=== PATIENT | female | born 1935 | race Caucasian/White ===

== ENCOUNTER 2017-07-11 15:10 | Inpatient (IN) | payer MEDICARE ==
[~2017-07-11] VITALS: Ht 162.6 cm; Wt 80.3 kg
[~2017-07-11 15:10] MED LIST: CIME200T OR; DUONI; FLUO40CA PO; FURO20TA PO; LISI30TA44 PO; METF-324 PO; MEVA40TA PO; NOVO7030P2 SQ; PRED5TAB OR; TEMA30CA PO
[2017-07-11 15:11] VITALS: BP 128/60; PULSE 110; RESP 16; TEMP 98.2; O2SAT 98
--- NOTE | 2017-07-11 16:11 | RADRPT ---
EXAM DATE/TIME: 07/11/2017 15:58 [facility] COMPARISON: No previous studies available for comparison. INDICATIONS : Left foot pain and infection in toes. MEDICAL HISTORY : None. SURGICAL HISTORY : None. ENCOUNTER: Initial ACUITY: 1 month PAIN SCORE: 2/10 LOCATION: Left foot, 2nd and 3rd digits. FINDINGS: Extensive osteopenia and vascular calcifications are noted. There is in the distal tuft of the littl e toe. Extensive degenerative changes in the tarsals. Fracture is not appreciated. CONCLUSION: Extensive degenerative changes. Pal Cancino MD FACR on July 11, 2017 at 16:09 Board Certified Radiologist. This report was verified electronically.
--- NOTE | 2017-07-11 16:14 | RADRPT ---
EXAM DATE/TIME: 07/11/2017 15:52 [facility] COMPARISON: No previous studies available for comparison. INDICATIONS : Evaluate for pneumonia, pneumothorax, or communicable disease. Pre op left foot surgery. MEDICAL HISTORY : Chronic obstructive pulmonary disease. Congestive heart failure. SURGICAL HISTORY : CABG. ENCOUNTER: Initial ACUITY: 1 day PAIN SCORE: 0/10 LOCATION: Bilateral chest FINDINGS: The patient is post median sternotomy. The heart is normal in size. There is elevation of the right h emidiaphragm. The lungs are clear. There degenerative changes in the shoulders bilaterally. CONCLUSION: 1. No acute cardiopulmonary findings. 2. The patient is post median sternotomy. Jasper Cancino MD on July 11, 2017 at 16:12 Board Certified Radiologist. This report was verified electronically.
[2017-07-11] MEDS ORDERED: VANCOMYCIN INJ 1,000 MG in SODIUM CHLOR 0.9% 250 ML INJ 250 ML IV ONE (17:00)
[2017-07-11] MEDS ORDERED: CIPROFLOXACIN 400 MG PREMIX 200 ML IV ONE (17:00)
--- NOTE | 2017-07-11 17:04 | PD ---
HPI Chief Complaint: Medical Clearance Time Seen by Provider: 16:44 Travel History International Travel<30 days: No Contact w/Intl Traveler<30days: No Traveled to known affect area: No History of Present Illness HPI The patient is a 82-year-old female who presents to the emergency department from her screener perfumer's office for admission to the medical service with a consultation to Dr. Marie. According to the prescription given to the patient the screener perfumer, Dr. Roman, would like bilateral arterial Dopplers performed of the lower extremities secondary to osteomyelitis of the left foot. The patient does note she has an open lesion over the lateral aspect of the third left toe. The patient states initially they thought there was a corn over the affected toe, however, the area is now open and draining. The patient recently finished a prescription for COPD exacerbation that included doxycycline and prednisone. The patient is still taking prednisone, however, finish the antibiotic. The patient does have a history of diabetes and neuropathy, denies any known history of peripheral last color disease. She does note the lower extremities have neuropathy denies any significant pain from the affected toe, but does notice been draining. The patient's primary physician is Dr. Guidry. Symptoms are moderate, possibly exacerbated by history of diabetes, and there are no current alleviating factors. PFSH Past Medical History Arthritis: Yes Asthma: No Blood Disorders: No Anxiety: Yes Depression: Yes Heart Rhythm Problems: Yes Cancer: No Cardiovascular Problems: Yes (HTN,CABG X 5) High Cholesterol: Yes Congestive Heart Failure: Yes COPD: No Diabetes: Yes Endocrine: Yes Glaucoma: Yes Genitourinary: Yes Hepatitis: No Hiatal Hernia: No Hypertension: Yes Immune Disorder: No Musculoskeletal: Yes Neurologic: Yes Reproductive: No Respiratory: Yes (COPD) Thyroid Disease: Yes (NODULE REMOVED) Ulcer: Yes Past Surgical History Abdominal Surgery: Yes (CHOLECYSTECTOMY 80) AICD: No Cardiac Surgery: Yes (98 CORONARY BIPASS X5) Cholecystectomy: Yes Endocrine Surgery: Yes (RIGHT THYROID LOBECTOMY 2003) Eye Surgery: Yes (CATARACT SX BILATERAL) Gynecologic Surgery: Yes (HYSTERECTOMY 1977) Joint Replacement: No Pacemaker: No Social History Alcohol Use: No Tobacco Use: No Substance Use: No Allergies-Medications (Allergen,Severity, Reaction): Coded Allergies: aspirin (Unverified Allergy, Severe, GI UPSET, 07/11/17) oxycodone (Verified Allergy, Unknown, Hallucinations, 07/11/17) Reported Meds & Prescriptions Reported Meds & Active Scripts Active Reported Lisinopril 30 Mg Tab 30 Mg PO DAILY Resp: Albuterol/Ipratropium 2.5 Mg/0.5 Mg (Albuterol/Ipratropium) 1 Amp Nebu 1 Amp .XX BID Glucophage (Metformin HCl) 1,000 Mg Tab 1,000 Mg PO BID Furosemide 20 Mg Tab 20 Mg PO DAILY Prednisone 5 Mg Tab 5 Mg OR DAILY Fluoxetine Hcl (Fluoxetine HCl) 40 Mg Cap 40 Mg PO DAILY Cimetidine 200 Mg Tab 400 Mg OR DIRECTED Temazepam 30 Mg Cap 30 Mg PO HS Lovastatin 40 Mg Tab 40 Mg PO HS Novolin 70/30 (Insulin Human Isoph/Insulin Regular) 100 Units/Ml Inj 30 Units SQ DAILY Novolin 70/30 (Insulin Human Isoph/Insulin Regular) 100 Units/Ml Inj 20 Units SQ HS Review of Systems Except as stated in HPI: all other systems reviewed are Neg General / Constitutional: No: Fever Cardiovascular: No: Chest Pain or Discomfort Respiratory: No: Shortness of Breath Gastrointestinal: No: Nausea, Vomiting, Abdominal Pain Musculoskeletal: No: Pain Skin: Positive Other (as noted in the history of present illness) Neurologic: Positive: Sensory Disturbance (history of neuropathy) Physical Exam Narrative GENERAL: Awake, alert, pleasant 82-year-old female who appears her stated age and is in no acute respiratory distress. SKIN: Focused skin assessment warm/dry. HEAD: Atraumatic. Normocephalic. EYES: No scleral icterus. ENT: No nasal bleeding or discharge. Mucous membranes pink and moist. NECK: Trachea midline. No JVD. CARDIOVASCULAR: Regular, tachycardic with a heart rate of 102. RESPIRATORY: No accessory muscle use. Clear to auscultation. Breath sounds equal bilaterally. GASTROINTESTINAL: Abdomen soft, non-tender, nondistended. Hepatic and splenic margins not palpable. MUSCULOSKELETAL: Third digit of the left foot has an ulcer over the lateral aspect of the proximal phalanx and interphalangeal joint with clear drainage. Mild surrounding erythema. Positive Doppler dorsalis pedal pulses bilaterally. NEUROLOGICAL: Awake and alert. No obvious cranial nerve deficits. Motor grossly within normal limits. Normal speech. Diminished sensation to soft touch feet bilaterally. Oriented 3. PSYCHIATRIC: Appropriate mood and affect; insight and judgment normal. Data Data Last Documented VS Vital Signs Date Time Temp Pulse Resp B/P (MAP) Pulse Ox O2 Delivery O2 Flow Rate FiO2 07/11/17 17:22 07/11/17 17:22 95 16 100 Room Air 07/11/17 15:11 98.2 Orders Orders Electrocardiogram (07/11/17 15:23) Complete Blood Count With Diff (07/11/17 15:23) Comprehensive Metabolic Panel (07/11/17 15:23) Prothrombin Time / Inr (Pt) (07/11/17 15:23) Act Partial Throm Time (Ptt) (07/11/17 15:23) Urinalysis - C+S If Indicated (07/11/17 15:23) Blood Culture (07/11/17 15:23) Foot, Limited (2vws) (07/11/17 ) Chest, Single Ap (07/11/17 15:23) Lactic Acid (07/11/17 16:57) Ciprofloxacin 400 Mg Premix (Cipro 400 M (07/11/17 17:00) Vancomycin Inj (Vancomycin Inj) (07/11/17 17:00) Consult Podiatry (07/11/17 ) Admit Order (Ed Use Only) (07/11/17 17:50) Labs Laboratory Tests Test 07/11/17 16:20 White Blood Count 24.0 TH/MM3 Red Blood Count 4.49 MIL/MM3 Hemoglobin 12.5 GM/DL Hematocrit 37.2 % Mean Corpuscular Volume 83.0 FL Mean Corpuscular Hemoglobin 27.8 PG Mean Corpuscular Hemoglobin Concent 33.5 % Red Cell Distribution Width 14.6 % Platelet Count 436 TH/MM3 Mean Platelet Volume 8.9 FL Neutrophils (%) (Auto) 76.3 % Lymphocytes (%) (Auto) 15.5 % Monocytes (%) (Auto) 7.2 % Eosinophils (%) (Auto) 0.5 % Basophils (%) (Auto) 0.5 % Neutrophils # (Auto) 18.3 TH/MM3 Lymphocytes # (Auto) 3.7 TH/MM3 Monocytes # (Auto) 1.7 TH/MM3 Eosinophils # (Auto) 0.1 TH/MM3 Basophils # (Auto) 0.1 TH/MM3 CBC Comment AUTO DIFF Blood Urea Nitrogen 32 MG/DL Creatinine 1.44 MG/DL Random Glucose 185 MG/DL Total Protein 7.3 GM/DL Albumin 3.1 GM/DL Calcium Level 9.1 MG/DL Alkaline Phosphatase 87 U/L Aspartate Amino Transf (AST/SGOT) 16 U/L Alanine Aminotransferase (ALT/SGPT) 17 U/L Total Bilirubin 0.5 MG/DL Sodium Level 139 MEQ/L Potassium Level 4.4 MEQ/L Chloride Level 106 MEQ/L Carbon Dioxide Level 22.5 MEQ/L Anion Gap 11 MEQ/L Estimat Glomerular Filtration Rate 35 ML/MIN [facility] Medical Decision Making Medical Screen Exam Complete: Yes Emergency Medical Condition: Yes Medical Record Reviewed: Yes Interpretation(s) EKG reveals sinus rhythm with occasional supraventricular premature complex. Nonspecific T wave changes. Laboratory Tests Test 07/11/17 16:20 White Blood Count 24.0 TH/MM3 Red Blood Count 4.49 MIL/MM3 Hemoglobin 12.5 GM/DL Hematocrit 37.2 % Mean Corpuscular Volume 83.0 FL Mean Corpuscular Hemoglobin 27.8 PG Mean Corpuscular Hemoglobin Concent 33.5 % Red Cell Distribution Width 14.6 % Platelet Count 436 TH/MM3 Mean Platelet Volume 8.9 FL Neutrophils (%) (Auto) 76.3 % Lymphocytes (%) (Auto) 15.5 % Monocytes (%) (Auto) 7.2 % Eosinophils (%) (Auto) 0.5 % Basophils (%) (Auto) 0.5 % Neutrophils # (Auto) 18.3 TH/MM3 Lymphocytes # (Auto) 3.7 TH/MM3 Monocytes # (Auto) 1.7 TH/MM3 Eosinophils # (Auto) 0.1 TH/MM3 Basophils # (Auto) 0.1 TH/MM3 CBC Comment AUTO DIFF Blood Urea Nitrogen 32 MG/DL Creatinine 1.44 MG/DL Random Glucose 185 MG/DL Total Protein 7.3 GM/DL Albumin 3.1 GM/DL Calcium Level 9.1 MG/DL Alkaline Phosphatase 87 U/L Aspartate Amino Transf (AST/SGOT) 16 U/L Alanine Aminotransferase (ALT/SGPT) 17 U/L Total Bilirubin 0.5 MG/DL Sodium Level 139 MEQ/L Potassium Level 4.4 MEQ/L Chloride Level 106 MEQ/L Carbon Dioxide Level 22.5 MEQ/L Anion Gap 11 MEQ/L Estimat Glomerular Filtration Rate 35 ML/MIN Last Impressions Chest X-Ray 07/11/17 1523 Signed Impressions: Service Date/Time: Tuesday, July 11, 2017 15:52 - CONCLUSION: 1. No acute cardiopulmonary findings. 2. The patient is post median sternotomy. Jasper Cancino MD Foot X-Ray 07/11/17 0000 Signed Impressions: Service Date/Time: Tuesday, July 11, 2017 15:58 - CONCLUSION: Extensive degenerative changes. Pal Cancino MD FACR Differential Diagnosis Differential diagnosis includes osteomyelitis, diabetic foot ulcer, peripheral vascular disease, wet gangrene, dry gangrene, cellulitis, infected wound. Narrative Course IV was established, labs are drawn and sent, and the patient was placed on cardiac telemetry monitoring and continuous pulse oximetry monitoring. X-ray was performed read as degenerative arthritis. However, the patient does appear to have some bone erosion of the proximal phalanx of the third bone. The patient does have Doppler dorsalis pedal pulses bilateral, may have diabetic foot ulcer with secondary osteomyelitis. A call was placed to the patient's screener perfumer, Dr. Marie, at 5 PM. I discussed the patient with Dr. Marie, who states to place the patient on antibiotics. The patient can't eat, and the patient is going to surgery may be Tuesday afternoon or Tuesday. The patient' s white count is elevated at 24, however, the patient has been on prednisone for COPD. The patient was administered Cipro to cover for pseudomonas and vancomycin to cover for MRSA. I'll call was placed to [facility] for admission. Physician Communication Physician Communication The on-call [facility] physician was paged for admission. I discussed the patient with Dr. Tay who agrees with admission. Diagnosis Primary Impression: Osteomyelitis of toe of left foot Admitting Information Admitting Physician Requests: Admit Condition: Stable Hiram Esparza MD Jul 11, 2017 17:04
[2017-07-11 17:06] LABS: AUTOMATED NEUTROPHIL # 18.3 TH/MM3 (1.8-7.7); BASOPHIL # 0.1 TH/MM3 (0-0.2); BASOPHIL % 0.5 % (0.0-2.0); EOSINOPHIL # 0.1 TH/MM3 (0-0.4); EOSINOPHIL % 0.5 % (0.0-4.0); HEMATOCRIT 37.2 % (35.0-46.0); LYMPH % 15.5 % (9.0-44.0); LYMPHOCYTE # 3.7 TH/MM3 (1.0-4.8); MEAN CORPUSCULAR HEMOGLOBIN 27.8 PG (27.0-34.0); MEAN CORPUSCULAR HGB CONC 33.5 % (32.0-36.0); MONO % 7.2 % (0.0-8.0); NEUT % 76.3 % (16.0-70.0); PLATELET COUNT 436 TH/MM3 (150-450); RED BLOOD COUNT 4.49 MIL/MM3 (4.00-5.30); RED CELL DISTRIBUTION WIDTH 14.6 % (11.6-17.2)
[2017-07-11 17:08] LABS: ALT (GPT) 17 U/L (10-53); ANION GAP 11 MEQ/L (5-15); AST (GOT) 16 U/L (15-37); BICARBONATE 22.5 MEQ/L (21.0-32.0); BLOOD UREA NITROGEN 32 MG/DL (7-18); CHLORIDE 106 MEQ/L (98-107); GLOMERULAR FILTRATION RATE 35 ML/MIN (>89); POTASSIUM 4.4 MEQ/L (3.5-5.1); SODIUM (NA) 139 MEQ/L (136-145)
[2017-07-11 17:09] LABS: HEMO FLAGS AUTO DIFF
[2017-07-11 17:10] LABS: ALKALINE PHOSPHATASE 87 U/L (45-117); TOTAL BILIRUBIN ADULT 0.5 MG/DL (0.2-1.0)
[2017-07-11 17:22] VITALS: BP 133/62; PULSE 95; RESP 16; O2SAT 100
[2017-07-11 18:18] LABS: PLATELET ESTIMATE SMEAR NORMAL (NORMAL); PLATELET MORPHOLOGY CLUMPED (NORMAL); SCAN/DIFF AUTO DIFF CONFIRMED
[2017-07-11 18:35] LABS: BLOOD, URINE NEG (NEG); GLUCOSE,URINE TRACE mg/dL (NEG); KETONE, URINE NEG (NEG); NITRITE,URINE NEG (NEG); SQUAMOUS EPITHELIAL CELL URINE <1 /hpf (0-5); URINE COLOR YELLOW (YELLW/STRAW)
[2017-07-11 18:38] LABS: COMMENT (UR) CATH-CULTURE IND; CULTURE IF INDICATED CATH CULTURE IND
[2017-07-11 18:44] VITALS: BP 129/71; PULSE 95; RESP 18; O2SAT 100
[2017-07-11] MEDS ORDERED: SENNOSIDES 8.6 MG TAB PO PRN (18:45)
[2017-07-11] MEDS ORDERED: SODIUM CHLORIDE 0.9% FLUSH 10 ML FLUSH IV FLUSH PRN (18:45)
[2017-07-11] MEDS ORDERED: Vancomycin Consult Pharmacy 1 EA OTHER SCH (18:45)
[2017-07-11] MEDS ORDERED: MAGNESIUM HYDROXIDE SUSP 30 ML CUP PO PRN (18:45)
[2017-07-11] MEDS ORDERED: LACTULOSE SYRUP 20 GM/30 ML CUP PO PRN (18:45)
[2017-07-11] MEDS ORDERED: MORPHINE SULFATE 4 MG/ML INJ IV PUSH PRN (18:45)
[2017-07-11] MEDS ORDERED: ONDANSETRON HCL 4 MG/2 ML VIAL IVP PRN (18:45)
[2017-07-11] MEDS ORDERED: BISACODYL 10 MG SUPP RECTAL PRN (18:45)
[2017-07-11] MEDS ORDERED: NALOXONE HCL 0.4 MG/ML AMP IV PUSH PRN (18:45)
--- NOTE | 2017-07-11 19:01 | HHI.HP ---
HPI Service [facility] Hospitalists Primary Care Physician Carlo Guidry M.D. Admission Diagnosis osteomyelitis third toe left foot, diabetes Chief Complaint: sent by podiatry for probable osteomyelitis third toe left foot Travel History International Travel<30 Days: No Contact w/Intl Traveler <30 Da: No Traveled to Known Affected Are: No History of Present Illness The patient is a 82-year-old female who presents to the emergency department from her watch crystal cutter's office for admission to the medical service with a consultation to Dr. Marie. According to the prescription given to the patient the watch crystal cutter, Dr. Roman, would like bilateral arterial Dopplers performed of the lower extremities secondary to osteomyelitis of the left foot. The patient does note she has an open lesion over the lateral aspect of the third left toe. The patient states initially they thought there was a corn over the affected toe, however, the area is now open and draining. The patient recently finished a prescription for COPD exacerbation that included doxycycline and prednisone. The patient is still taking prednisone, however, finish the antibiotic. The patient does have a history of diabetes and neuropathy, denies any known history of peripheral last color disease. She does note the lower extremities have neuropathy denies any significant pain from the affected toe, but does notice been draining. The patient's primary physician is Dr. Guidry. Symptoms are moderate, possibly exacerbated by history of diabetes, and there are no current alleviating factors. Admit with IV antibiotics and consult to podiatry with surgery to be planned. Review of Systems Musculoskeletal: COMPLAINS OF: Joint pain Past Family Social History Past Medical History djd,anxiety depression,hypertension,CABG times 5,hyperlipidemia,chf,dm,glucoma, COPD Past Surgical History gallbladder CABGtimes 5,rt thyroid lobectomy 2003,cataracts,hysterectomy Reported Medications Lisinopril 30 Mg Tab 30 Mg PO DAILY Resp: Albuterol/Ipratropium 2.5 Mg/0.5 Mg (Albuterol/Ipratropium) 1 Amp Nebu 1 Amp .XX BID Glucophage (Metformin HCl) 1,000 Mg Tab 1,000 Mg PO BID Furosemide 20 Mg Tab 20 Mg PO DAILY Prednisone 5 Mg Tab 5 Mg OR DAILY Fluoxetine Hcl (Fluoxetine HCl) 40 Mg Cap 40 Mg PO DAILY Cimetidine 200 Mg Tab 400 Mg OR DIRECTED Temazepam 30 Mg Cap 30 Mg PO HS Lovastatin 40 Mg Tab 40 Mg PO HS Novolin 70/30 (Insulin Human Isoph/Insulin Regular) 100 Units/Ml Inj 30 Units SQ DAILY Novolin 70/30 (Insulin Human Isoph/Insulin Regular) 100 Units/Ml Inj 20 Units SQ HS Allergies: Coded Allergies: aspirin (Unverified Allergy, Severe, GI UPSET, 07/11/17) oxycodone (Verified Allergy, Unknown, Hallucinations, 07/11/17) Social History NS,ND Physical Exam Vital Signs Vital Signs Date Time Temp Pulse Resp B/P (MAP) Pulse Ox O2 Delivery O2 Flow Rate FiO2 07/11/17 18:44 95 18 129/71 (90) 100 Room Air 07/11/17 17:22 07/11/17 17:22 95 16 133/62 (85) 100 Room Air 07/11/17 15:11 98.2 110 16 128/60 (82) 98 Physical Exam GENERAL: This is a well-nourished, well-developed patient, in no apparent distress. SKIN: No rashes, ecchymoses or lesions. Cool and dry. HEAD: Atraumatic. Normocephalic. No temporal or scalp tenderness. EYES: Pupils equal round and reactive. Extraocular motions intact. No scleral icterus. No injection or drainage. ENT: Nose without bleeding, purulent drainage or septal hematoma. Throat without erythema, tonsillar hypertrophy or exudate. Uvula midline. Airway patent. NECK: Trachea midline. No JVD or lymphadenopathy. Supple, nontender, no meningeal signs. CARDIOVASCULAR: Regular rate and rhythm without murmurs, gallops, or rubs. RESPIRATORY: Clear to auscultation. Breath sounds equal bilaterally. No wheezes , rales, or rhonchi. GASTROINTESTINAL: Abdomen soft, non-tender, nondistended. No hepato-splenomegaly , or palpable masses. No guarding. MUSCULOSKELETAL: Extremities without clubbing, cyanosis, or edema. No joint tenderness, effusion, or edema noted. No calf tenderness. Negative Homans sign bilaterally. 3rd digit left foot ulcer lateral aspect of proximal phalanx and interphalangeal joint with clear drainage mils surrounding edema doppler positive pulses NEUROLOGICAL: Awake and alert. Cranial nerves II through XII intact. Motor and sensory grossly within normal limits. Five out of 5 muscle strength in all muscle groups. Normal speech. Laboratory Laboratory Tests Test 07/11/17 16:20 07/11/17 18:00 White Blood Count 24.0 Red Blood Count 4.49 Hemoglobin 12.5 Hematocrit 37.2 Mean Corpuscular Volume 83.0 Mean Corpuscular Hemoglobin 27.8 Mean Corpuscular Hemoglobin Concent 33.5 Red Cell Distribution Width 14.6 Platelet Count 436 Mean Platelet Volume 8.9 Neutrophils (%) (Auto) 76.3 Lymphocytes (%) (Auto) 15.5 Monocytes (%) (Auto) 7.2 Eosinophils (%) (Auto) 0.5 Basophils (%) (Auto) 0.5 Neutrophils # (Auto) 18.3 Lymphocytes # (Auto) 3.7 Monocytes # (Auto) 1.7 Eosinophils # (Auto) 0.1 Basophils # (Auto) 0.1 CBC Comment AUTO DIFF Differential Comment AUTO DIFF CONFIRMED Platelet Estimate NORMAL Platelet Morphology Comment CLUMPED Blood Urea Nitrogen 32 Creatinine 1.44 Random Glucose 185 Total Protein 7.3 Albumin 3.1 Calcium Level 9.1 Alkaline Phosphatase 87 Aspartate Amino Transf (AST/SGOT) 16 Alanine Aminotransferase (ALT/SGPT) 17 Total Bilirubin 0.5 Sodium Level 139 Potassium Level 4.4 Chloride Level 106 Carbon Dioxide Level 22.5 Anion Gap 11 Estimat Glomerular Filtration Rate 35 Urine Color YELLOW Urine Turbidity CLEAR Urine pH 5.0 Urine Specific [place] 1.017 Urine Protein TRACE Urine Glucose (UA) TRACE Urine Ketones NEG Urine Occult Blood NEG Urine Nitrite NEG Urine Bilirubin NEG Urine Urobilinogen LESS THAN 2.0 Urine Leukocyte Esterase SMALL Urine RBC 1 Urine WBC 7 Urine Squamous Epithelial Cells <1 Urine Amorphous Sediment RARE Microscopic Urinalysis Comment CATH-CULTURE IND Lactic Acid Level 2.1 Date/Time Source Procedure Growth Status 07/11/17 16:20 Blood Peripheral Aerobic Blood Culture Pending Received 07/11/17 16:20 Blood Peripheral Anaerobic Blood Culture Pending Received 07/11/17 18:00 Urine Catheterized Urine Urine Culture Pending Received Result Diagram: 07/11/17 1620 07/11/17 1620 Imaging Last 24 hours Impressions Chest X-Ray 07/11/17 1523 Signed Impressions: Service Date/Time: Tuesday, July 11, 2017 15:52 - CONCLUSION: 1. No acute cardiopulmonary findings. 2. The patient is post median sternotomy. Jasper Cancino MD Foot X-Ray 07/11/17 0000 Signed Impressions: Service Date/Time: Tuesday, July 11, 2017 15:58 - CONCLUSION: Extensive degenerative changes. Pal Cancino MD FACR Course ekg sinus with spraventricular beats and non specific st t wave changes,patient started on cipro IV and Vancomycin by er Caprinfreeman VTE Risk Assessment Caprini VTE Risk Assessment: Mod/High Risk (score >= 2) Caprini Risk Assessment Model Point Value = 1 Point Value = 2 Point Value = 3 Point Value = 5 Age 41-60 Minor surgery BMI > 25 kg/m2 Swollen legs Varicose veins or History of unexplained or recurrent spontaneous Oral contraceptives or hormone replacement Sepsis (< 1 month) Serious lung disease, including pneumonia (< 1 month) Abnormal pulmonary function Acute myocardial infarction Congestive heart failure (< 1 month) History of inflammatory bowel disease Medical patient at bed rest Age 61-74 Arthroscopic surgery Major open surgery (> 45 min) Laparoscopic surgery (> 45 min) Malignancy Confined to bed (> 72 hours) Immobilizing plaster cast Central venous access Age >= 75 History of VTE Family history of VTE Factor V Leiden Prothrombin 24030N Lupus anticoagulant Anticardiolipin antibodies Elevated serum homocysteine Heparin-induced thrombocytopenia Other congenital or acquired thrombophilia Stroke (< 1 month) Elective arthroplasty Hip, pelvis, or leg fracture Acute spinal cord injury (< 1 month) Prophylaxis Regimen Total Risk Factor Score Risk Level Prophylaxis Regimen 0-1 Low Early ambulation 2 Moderate Order ONE of the following: *Sequential Compression Device (SCD) *Heparin 5000 units SQ BID 3-4 Higher Order ONE of the following medications: *Heparin 5000 units SQ TID *Enoxaparin/Lovenox 40 mg SQ daily (WT < 150 kg, CrCl > 30 mL/min) *Enoxaparin/Lovenox 30 mg SQ daily (WT < 150 kg, CrCl > 10-29 mL/min) *Enoxaparin/Lovenox 30 mg SQ BID (WT < 150 kg, CrCl > 30 mL/min) AND/OR *Sequential Compression Device (SCD) 5 or more Highest Order ONE of the following medications: *Heparin 5000 units SQ TID (Preferred with Epidurals) *Enoxaparin/Lovenox 40 mg SQ daily (WT < 150 kg, CrCl > 30 mL/min) *Enoxaparin/Lovenox 30 mg SQ daily (WT < 150 kg, CrCl > 10-29 mL/min) *Enoxaparin/Lovenox 30 mg SQ BID (WT < 150 kg, CrCl > 30 mL/min) AND *Sequential Compression Device (SCD) Assessment and Plan Problem List: (1) Osteomyelitis of toe of left foot ICD Codes: M86.9 - Osteomyelitis, unspecified Status: Acute Plan: consult podiatry and continue Vancomycin and cipro and follow labs (2) Diabetes ICD Codes: E11.9 - Type 2 diabetes mellitus without complications Plan: continue home meds add sliding scale with coverage (3) Hypertension associated with stage 3 chronic kidney disease due to type 2 diabetes mellitus ICD Codes: E11.22 - Type 2 diabetes mellitus with diabetic chronic kidney disease; I12.9 - Hypertensive chronic kidney disease with stage 1 through stage 4 chronic kidney disease, or unspecified chronic kidney disease; N18.3 - Chronic kidney disease, stage 3 (moderate) Plan: continue home meds and follow labs Assessment and Plan further plan as case develops continue copd treatment Code Status full Discussed Condition With patient Physician Certification 2 Midnight Certification Type: Admission for Inpatient Services Order for Inpatient Services The services are ordered in accordance with Medicare regulations or non- Medicare payer requirements, as applicable. In the case of services not specified as inpatient-only, they are appropriately provided as inpatient services in accordance with the 2-midnight benchmark. Estimated LOS (days): 3 3 days is the estimated time the patient will need to remain in the hospital, assuming treatment plan goals are met and no additional complications. Post-Hospital Plan: Not yet determined Eron Tay MD Jul 11, 2017 19:01
[2017-07-11 19:47] LABS: APTT (PATIENT) 24.4 SEC (24.3-30.1); PROTHROMBIN TIME - PATIENT 10.8 SEC (9.8-11.6)
[2017-07-11 20:00] VITALS: BP 127/61; PULSE 88; RESP 18; TEMP 98.2; O2SAT 98
[2017-07-11] MEDS: DOCUSATE SODIUM 50 MG/SENNA 8.6 MG TAB PO SCH (21:00)
[2017-07-11] MEDS: INSULIN ASPART SUPPLEMENTAL SCALE SQ SCH (21:00)
[2017-07-11] MEDS: SODIUM CHLORIDE 0.9% FLUSH 10 ML FLUSH IV FLUSH SCH (21:00)
[2017-07-11] MEDS ORDERED: GLUCAGON 1 MG/ML VIAL OTHER PRN (21:45)
[2017-07-11] MEDS ORDERED: DEXTROSE 50% IN WATER 50 ML VIAL(D50) IV PUSH PRN (21:45)
[2017-07-11] MEDS: RESP: ALBUTEROL 2.5 MG/IPRATROPIUM 0.5 MG NEB (SCH) NEB (22:04)
[2017-07-11 22:08] VITALS: O2SAT 97
[2017-07-11 23:00] VITALS: BP 122/58; PULSE 106; RESP 18; TEMP 98.3; O2SAT 96
[2017-07-11] MEDS: ENOXAPARIN SODIUM 30 MG/0.3 ML SYRINGE SQ SCH (23:43)
[2017-07-11] MEDS: PRAVASTATIN SOD 40 MG TAB PO SCH (23:44)
[2017-07-11] MEDS: TEMAZEPAM 15 MG CAP PO SCH (23:44)
[2017-07-11] MEDS: INSULIN HUMAN NPH/R 70/30 1,000 UNITS/10 ML VIAL SQ SCH (23:45)
[2017-07-12] VITALS (11 sets, daily range): BP systolic 111–131; BP diastolic 52–60; PULSE 63–100; RESP 18–20; TEMP 97.4–98.5; O2SAT 97–100
[2017-07-12] MEDS: CIPROFLOXACIN 400 MG PREMIX 200 ML IV SCH ×2 (06:03→17:22)
[2017-07-12] MEDS: RESP: ALBUTEROL 2.5 MG/IPRATROPIUM 0.5 MG NEB (SCH) NEB ×2 (07:31→19:36)
[2017-07-12] MEDS: INSULIN ASPART SUPPLEMENTAL SCALE SQ SCH ×4 (08:00→22:43)
[2017-07-12 08:03] LABS: AUTOMATED NEUTROPHIL # 11.4 TH/MM3 (1.8-7.7); BASOPHIL # 0.1 TH/MM3 (0-0.2); BASOPHIL % 0.6 % (0.0-2.0); EOSINOPHIL # 0.1 TH/MM3 (0-0.4); HEMATOCRIT 36.2 % (35.0-46.0); HEMO FLAGS DIFF FINAL; LYMPH % 8.8 % (9.0-44.0); LYMPHOCYTE # 1.2 TH/MM3 (1.0-4.8); MEAN CELL VOLUME 82.9 FL (80.0-100.0); MEAN CORPUSCULAR HEMOGLOBIN 27.7 PG (27.0-34.0); MEAN CORPUSCULAR HGB CONC 33.4 % (32.0-36.0); MONO % 9.6 % (0.0-8.0); PLATELET COUNT 344 TH/MM3 (150-450); RED BLOOD COUNT 4.36 MIL/MM3 (4.00-5.30); RED CELL DISTRIBUTION WIDTH 14.8 % (11.6-17.2); WHITE BLOOD COUNT 14.2 TH/MM3 (4.0-11.0)
[2017-07-12] MEDS: LISINOPRIL 10 MG TAB PO SCH (08:36)
[2017-07-12] MEDS: DOCUSATE SODIUM 50 MG/SENNA 8.6 MG TAB PO SCH ×2 (08:36→22:33)
[2017-07-12] MEDS: FLUoxetine HCL 20 MG CAP PO SCH (08:36)
[2017-07-12] MEDS: predniSONE 5 MG TAB PO SCH (08:36)
[2017-07-12] MEDS: SODIUM CHLORIDE 0.9% FLUSH 10 ML FLUSH IV FLUSH SCH ×2 (08:37→21:00)
[2017-07-12] MEDS: INSULIN HUMAN NPH/R 70/30 1,000 UNITS/10 ML VIAL SQ SCH ×2 (08:37→22:43)
[2017-07-12 08:41] LABS: BICARBONATE 24.7 MEQ/L (21.0-32.0); POTASSIUM 3.3 MEQ/L (3.5-5.1)
[2017-07-12] MEDS ORDERED: metFORMIN HCL 500 MG TAB PO SCH (09:00)
[2017-07-12] MEDS ORDERED: FUROSEMIDE 20 MG TAB PO SCH (09:00)
--- NOTE | 2017-07-12 13:48 | RADRPT ---
EXAM DATE/TIME: 07/12/2017 11:45 [facility] COMPARISON: FOOT LEFT LIMITED (2VWS), July 11, 2017, 15:58. INDICATIONS : Osteomyelitis. Left third toe infection. MEDICAL HISTORY : Hypertension. Diabetes mellitus type 2. Chronic obstructive pulmonary disease. SURGICAL HISTORY : Cholecystectomy. Hysterectomy. Appendectomy. Tonsillectomy. CABG. Hernia. Goiter removed. ENCOUNTER: Subsequent ACUITY: 4-6 days PAIN SCORE: 3/10 LOCATION: Left foot. TECHNIQUE: Multiplanar, multisequence MRI examination was performed without contrast. FINDINGS: The third digit proximal phalanx demonstrates increased T2 and decreased T1 signal. The middle phalan x also appears to likely have similar signal intensity. The distal phalanx is difficult to characteri ze but mostly has a normal T1 signal. There is edema within the third digit. No abscess or fluid ambrosio ection is appreciated. There is decreased T1 and increased T2 signal in the second metacarpal head adjacent to the metacarpa l phalangeal joint. Susceptibility artifact is present at the distal fifth digit which is secondary t o a needle like metallic structure seen on the plain film to measure 6 mm in length. This limits eval uation of the fifth digit. Remaining bone marrow signal is within normal limits. Tendons and musculat ure demonstrates no acute finding. CONCLUSION: 1. Abnormal bone marrow signal within the third digit proximal phalanx and middle phalanx. Although n o intravenous contrast was administered, the findings could be consistent with osteomyelitis. 2. Abnormal signal at the second metacarpal head may be reactive from arthropathy. 3. There is a linear 6 mm metallic foreign body in the distal fifth digit. This causes susceptibility artifact on this examination limiting evaluation of the fifth digit. Cristino Garcia MD on July 12, 2017 at 13:36 Board Certified Radiologist. This report was verified electronically.
[2017-07-12] MEDS: VANCOMYCIN INJ 1,250 MG in SODIUM CHLOR 0.9% 250 ML INJ 250 ML IV SCH (14:04)
--- NOTE | 2017-07-12 14:14 | HHI.PR ---
Subjective Remarks doing ok. Objective Vitals heart reg lung cta ab d s/nt ext left 3rd toe open wound with redness/swelling Vital Signs Date Time Temp Pulse Resp B/P (MAP) Pulse Ox O2 Delivery O2 Flow Rate FiO2 07/12/17 12:09 97.4 63 20 116/55 (75) 99 07/12/17 08:09 98.5 93 20 119/58 (78) 100 07/12/17 08:00 94 07/12/17 07:33 100 07/12/17 03:41 98.2 95 18 111/54 (73) 98 07/12/17 02:01 98 07/12/17 01:47 95 07/11/17 23:00 98.3 106 18 122/58 (79) 96 07/11/17 22:08 97 21 07/11/17 20:00 98.2 88 18 127/61 (83) 98 07/11/17 18:59 07/11/17 18:44 95 18 129/71 (90) 100 Room Air 07/11/17 17:22 07/11/17 17:22 95 16 133/62 (85) 100 Room Air 07/11/17 15:11 98.2 110 16 128/60 (82) 98 Result Diagram: 07/12/17 0615 07/12/17 0615 Imaging Last 24 hours Impressions Chest X-Ray 07/11/17 1523 Signed Impressions: Service Date/Time: Tuesday, July 11, 2017 15:52 - CONCLUSION: 1. No acute cardiopulmonary findings. 2. The patient is post median sternotomy. Jasper Cancino MD Foot X-Ray 07/11/17 0000 Signed Impressions: Service Date/Time: Tuesday, July 11, 2017 15:58 - CONCLUSION: Extensive degenerative changes. Pal Cancino MD FACR A/P Problem List: (1) Osteomyelitis of toe of left foot ICD Codes: M86.9 - Osteomyelitis, unspecified Status: Acute Plan: 1. left 3rd toe cellulitis and concern for osteomyelitis 2. ckd 3 3. hypokalemia 4. dm 2 5.copd. podiatry consulted ED initiated iv abx ivf with kcl mri pending..await probable amputation. PT dvt prophylaxis cont insulin and ssi. (2) Diabetes ICD Codes: E11.9 - Type 2 diabetes mellitus without complications Status: Chronic (3) Hypertension associated with stage 3 chronic kidney disease due to type 2 diabetes mellitus ICD Codes: E11.22 - Type 2 diabetes mellitus with diabetic chronic kidney disease; I12.9 - Hypertensive chronic kidney disease with stage 1 through stage 4 chronic kidney disease, or unspecified chronic kidney disease; N18.3 - Chronic kidney disease, stage 3 (moderate) Juan Bello MD Jul 12, 2017 14:14
--- NOTE | 2017-07-12 14:21 | EKG ---
Date Performed: 07/11/2017 Time Performed: 17:19:40 PTAGE: 82 years EKG: Sinus rhythm WITH OCCASIONAL SUPRAVENTRICULAR PREMATURE COMPLEXES NONSPECIFIC T-WAVE ABNORMALITY BORDERLINE ECG PREVIOUS TRACING : 10/28/2011 08.34 Compared to prior tracing no significant change DOCTOR: Parish Arana Interpretating Date/Time 07/12/2017 14:15:47
[2017-07-12] MEDS: NS + KCL 20 MEQ INJ 1,000 ML IV SCH (15:06)
--- NOTE | 2017-07-12 17:03 | PD.CONS ---
History of Present Illness Service Podiatry Consult Requested By Reason for Consult L 3rd toe infection Primary Care Physician Carlo Guidry M.D. Diagnoses: History of Present Illness The patient came to ED due to infection L 3rd toe. She has had recurring ulcer to the area and other areas of her foot. She was seen by Dr Belcher and sent to ED due to infection present to be evaluated further. Past Family Social History Allergies: Coded Allergies: aspirin (Unverified Allergy, Severe, GI UPSET, 07/11/17) oxycodone (Verified Allergy, Unknown, Hallucinations, 07/11/17) Past Medical History DJD Anxiety/depression HTN CABG times 5 Hyperlipidemia CHF DM Glaucoma COPD Past Surgical History Gallbladder CABG x5 Rt thyroid lobectomy 2004 Cataracts Hysterectomy Reported Medications Lisinopril 30 Mg Tab 30 Mg PO DAILY Resp: Albuterol/Ipratropium 2.5 Mg/0.5 Mg (Albuterol/Ipratropium) 1 Amp Nebu 1 Amp .XX BID Glucophage (Metformin HCl) 1,000 Mg Tab 1,000 Mg PO BID Furosemide 20 Mg Tab 20 Mg PO DAILY Prednisone 5 Mg Tab 5 Mg OR DAILY Fluoxetine Hcl (Fluoxetine HCl) 40 Mg Cap 40 Mg PO DAILY Cimetidine 200 Mg Tab 400 Mg OR DIRECTED Temazepam 30 Mg Cap 30 Mg PO HS Lovastatin 40 Mg Tab 40 Mg PO HS Novolin 70/30 (Insulin Human Isoph/Insulin Regular) 100 Units/Ml Inj 30 Units SQ DAILY Novolin 70/30 (Insulin Human Isoph/Insulin Regular) 100 Units/Ml Inj 20 Units SQ HS Allergies: Coded Allergies: aspirin (Unverified Allergy, Severe, GI UPSET, 07/11/17) oxycodone (Verified Allergy, Unknown, Hallucinations, 07/11/17) Active Ordered Medications Current Medications Medications (Trade) Dose Ordered Sig/Trish Route Start Time Stop Time Status Last Admin (Duoneb Neb) 1 ampule BID NEB NEB 07/11/17 21:00 07/12/17 07:31 (NovoLIN 70/30 INJ) 20 units HS SQ 07/11/17 21:00 07/11/17 23:45 (NovoLIN 70/30 INJ) 30 units DAILY SQ 07/12/17 09:00 07/12/17 08:37 (Deltasone) 5 mg DAILY PO 07/12/17 09:00 07/12/17 08:36 (PROzac) 40 mg DAILY PO 07/12/17 09:00 07/12/17 08:36 (Prinivil) 30 mg DAILY PO 07/12/17 09:00 07/12/17 08:36 (Pravachol) 40 mg HS PO 07/11/17 21:30 07/11/17 23:44 (Restoril) 30 mg HS PO 07/11/17 21:45 07/11/17 23:44 (NS Flush) 2 ml UNSCH PRN IV FLUSH 07/11/17 18:45 07/12/17 06:04 (NS Flush) 2 ml BID IV FLUSH 07/11/17 21:00 07/12/17 08:37 (Zofran Inj) 4 mg Q6H PRN IVP 07/11/17 18:45 (Lovenox Inj) 30 mg Q24H SQ 07/11/17 22:00 07/11/17 23:43 (Morphine Inj) 2 mg Q8HR PRN IV PUSH 07/11/17 18:45 (Narcan Inj) 0.4 mg UNSCH PRN IV PUSH 07/11/17 18:45 (Laney-Colace) 1 tab BID PO 07/11/17 21:00 07/12/17 08:36 (Milk Of Magnesia Liq) 30 ml Q12H PRN PO 07/11/17 18:45 (Senokot) 17.2 mg Q12H PRN PO 07/11/17 18:45 (Dulcolax Supp) 10 mg DAILY PRN RECTAL 07/11/17 18:45 (Lactulose Liq) 30 ml DAILY PRN PO 07/11/17 18:45 Ciprofloxacin/ Dextrose 200 ml @ 200 mls/hr Q12H IV 07/12/17 06:00 07/12/17 17:22 Pharmacy Profile Note 0 ml @ 0 mls/hr UNSCH OTHER 07/11/17 18:45 (NovoLOG SUPPLEMENTAL SCALE) 1 ACHS SLIDING SCALE SQ 07/11/17 21:00 (D50w (Vial) Inj) 50 ml UNSCH PRN IV PUSH 07/11/17 21:45 (Glucagon Inj) 1 mg UNSCH PRN OTHER 07/11/17 21:45 Vancomycin HCl 1250 mg/Sodium Chloride 262.5 ml @ 250 mls/hr Q24H IV 07/12/17 14:00 07/12/17 14:04 Miscellaneous Information SPECIFIC LAB TO BE DRAWN:VANCOMYCIN TROUGH DATE TO... ONCE ONCE .XX 07/14/17 13:45 07/14/17 13:46 Potassium Chloride/Sodium Chloride 1,000 ml @ 84 mls/hr [id number] IV 07/12/17 14:15 07/12/17 15:06 Family History denies Social History Denies Physical Exam Vital Signs Vital Signs Date Time Temp Pulse Resp B/P (MAP) Pulse Ox O2 Delivery O2 Flow Rate FiO2 07/12/17 16:37 97.7 91 20 117/52 (73) 99 07/12/17 12:09 97.4 63 20 116/55 (75) 99 07/12/17 08:09 98.5 93 20 119/58 (78) 100 07/12/17 08:00 94 07/12/17 07:33 100 07/12/17 03:41 98.2 95 18 111/54 (73) 98 07/12/17 02:01 98 07/12/17 01:47 95 07/11/17 23:00 98.3 106 18 122/58 (79) 96 07/11/17 22:08 97 21 07/11/17 20:00 98.2 88 18 127/61 (83) 98 07/11/17 18:59 07/11/17 18:44 95 18 129/71 (90) 100 Room Air 07/11/17 17:22 07/11/17 17:22 95 16 133/62 (85) 100 Room Air Physical Exam L 3rd toe with distal ulceration to bone. Edema/erythema present. Purulence present. Warm skin temperature. Palpable DP pulse Laboratory Laboratory Tests Test 07/11/17 18:00 07/11/17 18:45 07/12/17 06:15 Urine Color YELLOW Urine Turbidity CLEAR Urine pH 5.0 Urine Specific [place] 1.017 Urine Protein TRACE Urine Glucose (UA) TRACE Urine Ketones NEG Urine Occult Blood NEG Urine Nitrite NEG Urine Bilirubin NEG Urine Urobilinogen LESS THAN 2.0 Urine Leukocyte Esterase SMALL Urine RBC 1 Urine WBC 7 Urine Squamous Epithelial Cells <1 Urine Amorphous Sediment RARE Microscopic Urinalysis Comment CATH-CULTURE IND Lactic Acid Level 2.1 Prothrombin Time 10.8 Prothromb Time International Ratio 1.0 Activated Partial Thromboplast Time 24.4 White Blood Count 14.2 Red Blood Count 4.36 Hemoglobin 12.1 Hematocrit 36.2 Mean Corpuscular Volume 82.9 Mean Corpuscular Hemoglobin 27.7 Mean Corpuscular Hemoglobin Concent 33.4 Red Cell Distribution Width 14.8 Platelet Count 344 Mean Platelet Volume 8.3 Neutrophils (%) (Auto) 80.0 Lymphocytes (%) (Auto) 8.8 Monocytes (%) (Auto) 9.6 Eosinophils (%) (Auto) 1.0 Basophils (%) (Auto) 0.6 Neutrophils # (Auto) 11.4 Lymphocytes # (Auto) 1.2 Monocytes # (Auto) 1.4 Eosinophils # (Auto) 0.1 Basophils # (Auto) 0.1 CBC Comment DIFF FINAL Differential Comment Blood Urea Nitrogen 33 Creatinine 1.60 Random Glucose 106 Calcium Level 8.7 Sodium Level 140 Potassium Level 3.3 Chloride Level 103 Carbon Dioxide Level 24.7 Anion Gap 12 Estimat Glomerular Filtration Rate 31 Date/Time Source Procedure Growth Status 07/11/17 16:20 Blood Peripheral Aerobic Blood Culture - Preliminary NO GROWTH IN 1 DAY Resulted 07/11/17 16:20 Blood Peripheral Anaerobic Blood Culture - Preliminary NO GROWTH IN 1 DAY Resulted 07/11/17 18:00 Urine Catheterized Urine Urine Culture - Preliminary RESULTS PENDING Resulted Result Diagram: 07/12/17 0615 07/12/17 0615 Imaging Last 72 hours Impressions Foot MRI 07/12/17 0000 Signed Impressions: Service Date/Time: Wednesday, July 12, 2017 11:45 - CONCLUSION: 1. Abnormal bone marrow signal within the third digit proximal phalanx and middle phalanx. Although no intravenous contrast was administered, the findings could be consistent with osteomyelitis. 2. Abnormal signal at the second metacarpal head may be reactive from arthropathy. 3. There is a linear 6 mm metallic foreign body in the distal fifth digit. This causes susceptibility artifact on this examination limiting evaluation of the fifth digit. Cristino Garcia MD Chest X-Ray 07/11/17 1523 Signed Impressions: Service Date/Time: Tuesday, July 11, 2017 15:52 - CONCLUSION: 1. No acute cardiopulmonary findings. 2. The patient is post median sternotomy. Jasper Cancino MD Foot X-Ray 07/11/17 0000 Signed Impressions: Service Date/Time: Tuesday, July 11, 2017 15:58 - CONCLUSION: Extensive degenerative changes. Pal Cancino MD FACR Assessment and Plan Assessment and Plan Osteomyelitis L 3rd toe Plan to OR for L 3rd toe amputation tomorrow pm Jo Marie DPM Jul 12, 2017 17:03
[2017-07-12] MEDS: ENOXAPARIN SODIUM 30 MG/0.3 ML SYRINGE SQ SCH (22:33)
[2017-07-12] MEDS: TEMAZEPAM 15 MG CAP PO SCH (22:33)
[2017-07-12] MEDS: PRAVASTATIN SOD 40 MG TAB PO SCH (22:33)
[2017-07-13] VITALS (8 sets, daily range): BP systolic 113–156; BP diastolic 54–85; PULSE 84–94; RESP 18–22; TEMP 97.5–98.3; O2SAT 97–100
[2017-07-13] MEDS: NS + KCL 20 MEQ INJ 1,000 ML IV SCH (02:10)
[2017-07-13] MEDS: CIPROFLOXACIN 400 MG PREMIX 200 ML IV SCH ×2 (05:53→17:57)
[2017-07-13] MEDS: INSULIN ASPART SUPPLEMENTAL SCALE SQ SCH ×4 (08:00→22:04)
[2017-07-13] MEDS: FLUoxetine HCL 20 MG CAP PO SCH (08:07)
[2017-07-13] MEDS: predniSONE 5 MG TAB PO SCH (08:07)
[2017-07-13] MEDS: DOCUSATE SODIUM 50 MG/SENNA 8.6 MG TAB PO SCH ×2 (08:07→21:48)
[2017-07-13] MEDS: SODIUM CHLORIDE 0.9% FLUSH 10 ML FLUSH IV FLUSH SCH ×2 (08:08→21:00)
[2017-07-13] MEDS: LISINOPRIL 10 MG TAB PO SCH (08:09)
[2017-07-13] MEDS: INSULIN HUMAN NPH/R 70/30 1,000 UNITS/10 ML VIAL SQ SCH ×2 (08:09→22:04)
[2017-07-13] MEDS: RESP: ALBUTEROL 2.5 MG/IPRATROPIUM 0.5 MG NEB (SCH) NEB ×2 (08:46→21:01)
[2017-07-13 09:27] LABS: AUTOMATED NEUTROPHIL # 8.6 TH/MM3 (1.8-7.7); BASOPHIL # 0.1 TH/MM3 (0-0.2); BASOPHIL % 0.7 % (0.0-2.0); EOSINOPHIL # 0.3 TH/MM3 (0-0.4); EOSINOPHIL % 2.1 % (0.0-4.0); HEMO FLAGS DIFF FINAL; LYMPH % 15.7 % (9.0-44.0); MEAN CELL VOLUME 83.7 FL (80.0-100.0); MEAN CORPUSCULAR HEMOGLOBIN 27.4 PG (27.0-34.0); MEAN CORPUSCULAR HGB CONC 32.8 % (32.0-36.0); MONO % 13.8 % (0.0-8.0); NEUT % 67.7 % (16.0-70.0); PLATELET COUNT 344 TH/MM3 (150-450); RED BLOOD COUNT 4.18 MIL/MM3 (4.00-5.30); RED CELL DISTRIBUTION WIDTH 14.7 % (11.6-17.2); WHITE BLOOD COUNT 12.7 TH/MM3 (4.0-11.0)
[2017-07-13 09:59] LABS: BICARBONATE 23.1 MEQ/L (21.0-32.0); MAGNESIUM 1.6 MG/DL (1.5-2.5); POTASSIUM 4.8 MEQ/L (3.5-5.1)
[2017-07-13] MEDS: SODIUM CHLOR 0.9% 1000 ML INJ 1,000 ML IV SCH ×2 (10:59→22:55)
--- NOTE | 2017-07-13 11:20 | HHI.PR ---
Subjective Remarks doing ok. no complaints Objective Vitals heart reg lung cta abd s/nt ext no pitting. left 3rd toe deformity/ulcerated and red. Vital Signs Date Time Temp Pulse Resp B/P (MAP) Pulse Ox O2 Delivery O2 Flow Rate FiO2 07/13/17 08:47 21 07/13/17 08:14 97.6 92 20 120/56 (77) 99 07/13/17 08:12 85 07/13/17 04:00 98.3 84 18 137/85 (102) 100 07/13/17 00:00 97.8 84 18 113/54 (73) 97 07/12/17 23:38 85 07/12/17 20:00 98.5 100 18 131/60 (83) 97 07/12/17 19:36 99 21 07/12/17 16:37 97.7 91 20 117/52 (73) 99 07/12/17 12:09 97.4 63 20 116/55 (75) 99 07/13/17 07/13/17 07/14/17 15:00 23:00 07:00 Intake Total 115 ml Balance 115 ml IV Total 115 ml # Voids 3 Result Diagram: 07/13/17 0842 07/13/17 0842 Imaging Last 24 hours Impressions Chest X-Ray 07/11/17 1523 Signed Impressions: Service Date/Time: Tuesday, July 11, 2017 15:52 - CONCLUSION: 1. No acute cardiopulmonary findings. 2. The patient is post median sternotomy. Jasper Cancino MD Foot X-Ray 07/11/17 0000 Signed Impressions: Service Date/Time: Tuesday, July 11, 2017 15:58 - CONCLUSION: Extensive degenerative changes. Pal Cancino MD FACR A/P Problem List: (1) Osteomyelitis of toe of left foot ICD Codes: M86.9 - Osteomyelitis, unspecified Status: Acute Plan: 1. left 3rd toe cellulitis and concern for osteomyelitis 2. ckd 3 3. hypokalemia 4. dm 2 5.copd. podiatry consulted and pt going for amputation today. ED initiated iv abx ivf with kcl PT....recommended snf to improve ambulation as pt with neuropathy and frequent falls. dvt prophylaxis cont insulin and ssi. (2) Diabetes ICD Codes: E11.9 - Type 2 diabetes mellitus without complications Status: Chronic (3) Hypertension associated with stage 3 chronic kidney disease due to type 2 diabetes mellitus ICD Codes: E11.22 - Type 2 diabetes mellitus with diabetic chronic kidney disease; I12.9 - Hypertensive chronic kidney disease with stage 1 through stage 4 chronic kidney disease, or unspecified chronic kidney disease; N18.3 - Chronic kidney disease, stage 3 (moderate) Juan Bello MD Jul 13, 2017 11:20
[2017-07-13] MEDS ORDERED: MIDAZOLAM HCL 2 MG/2 ML VIAL IV ONE (12:00)
[2017-07-13] MEDS ORDERED: PROPOFOL 200 MG/20 ML AMP IV ONE (12:00)
[2017-07-13] MEDS ORDERED: PHENYLEPH/NS 1000 MCG/10 ML SYR IV ONE (12:00)
[2017-07-13] MEDS: VANCOMYCIN INJ 1,250 MG in SODIUM CHLOR 0.9% 250 ML INJ 250 ML IV SCH (14:09)
[2017-07-13] MEDS ORDERED: LIDOCAINE HCL 2% 50 ML VIAL ONE (15:40)
[2017-07-13] MEDS ORDERED: BUPIVACAINE HCL PF 0.5% 30 ML VIAL ONE (15:40)
--- NOTE | 2017-07-13 16:58 | HHI.PR ---
Immediate Post Op Note Procedure Date: Jul 13, 2017 Pre Op Diagnosis: Osteomyelitis L 3rd toe Post Op Diagnosis: Same Surgeon: Jo Marie DPM Buffer Inflated Pad(s): Staff Procedure: Amputation L 3rd toe Findings: Consistent with diagnosis. Large ulceration to lateral aspect L 3rd digit with edema/erythema to 3rd digit. Digit disarticulated at MTP joint level and no josette purulence noted. Viable healthy appearance to 3rd metatarsal head and remaining tissue. Culture taken. irrigation with NS and primary closure with 2- 0 nylon, xeroform, 4x4, abd, cast padding, leyla L foot. WBAT L foot in surgical shoe Follow up in clinic 1 week. Ok with d/c when deemed ready per primary team. Keep bandage clean, dry, intact until clinic visit next week. Additional Information: n/a Complications: none Specimen(s) removed: 1. L 3rd toe 2. culture L foot Estimated blood loss: minimal Anesthesia: General, Local (10mL 0.5% marcaine plain) Drains: None Tourniquet time (min at mmHg) n/a Patient to: PACU Patient Condition: Good Date/Time of Procedure: SEE SURGICAL CARE RECORD Jo Marie DPM Jul 13, 2017 16:58
[2017-07-13] MEDS ORDERED: *RESP: ALBUTEROL 2.5 MG/3 ML NEB (PRN) PERIprocedural Use ONLY NEB ONE (17:13)
[2017-07-13] MEDS ORDERED: DO NOT ADM ANY ANTICOAGULANT DRUGS PRN (17:15)
--- NOTE | 2017-07-13 17:48 | RADRPT ---
EXAM DATE/TIME: 07/13/2017 17:13 [facility] COMPARISON: No previous studies available for comparison. INDICATIONS : Left foot third digit post op. MEDICAL HISTORY : Hypertension. Diabetes mellitus type 2. Chronic obstructive pulmonary disease. SURGICAL HISTORY : Cholecystectomy. Hysterectomy. Appendectomy. Tonsillectomy. CABG. Hernia. ENCOUNTER: Initial ACUITY: 1 day PAIN SCORE: 0/10 LOCATION: Left foot. FINDINGS: Status post resection of the left third digit. Degenerative changes, and extensive vascular calcific ation noted. CONCLUSION: Amputation left third digit. Pal Cancino MD FACR on July 13, 2017 at 17:46 Board Certified Radiologist. This report was verified electronically.
[2017-07-13] MEDS: PRAVASTATIN SOD 40 MG TAB PO SCH (21:48)
[2017-07-13] MEDS: TEMAZEPAM 15 MG CAP PO SCH (21:49)
[2017-07-13] MEDS: ENOXAPARIN SODIUM 30 MG/0.3 ML SYRINGE SQ SCH (22:00)
[2017-07-14 01:21] VITALS: BP 129/58; PULSE 86; RESP 18; TEMP 99.3; O2SAT 96
[2017-07-14] MEDS: CIPROFLOXACIN 400 MG PREMIX 200 ML IV SCH (05:14)
[2017-07-14 05:54] VITALS: BP 126/59; PULSE 82; RESP 18; TEMP 97.7; O2SAT 99
[2017-07-14] MEDS: RESP: ALBUTEROL 2.5 MG/IPRATROPIUM 0.5 MG NEB (SCH) NEB (07:56)
[2017-07-14] MEDS: INSULIN ASPART SUPPLEMENTAL SCALE SQ SCH ×2 (08:00→12:14)
[2017-07-14 08:01] VITALS: PULSE 75
[2017-07-14 08:42] LABS: BICARBONATE 24.1 MEQ/L (21.0-32.0); POTASSIUM 4.2 MEQ/L (3.5-5.1)
[2017-07-14] MEDS: INSULIN HUMAN NPH/R 70/30 1,000 UNITS/10 ML VIAL SQ SCH (09:00)
[2017-07-14] MEDS: FLUoxetine HCL 20 MG CAP PO SCH (09:39)
[2017-07-14] MEDS: LISINOPRIL 10 MG TAB PO SCH (09:39)
[2017-07-14] MEDS: predniSONE 5 MG TAB PO SCH (09:39)
[2017-07-14] MEDS: DOCUSATE SODIUM 50 MG/SENNA 8.6 MG TAB PO SCH (09:39)
[2017-07-14] MEDS: SODIUM CHLORIDE 0.9% FLUSH 10 ML FLUSH IV FLUSH SCH (09:41)
[2017-07-14] MEDS ORDERED: REST15CA PO (09:54)
[2017-07-14] MEDS ORDERED: CIPR250T52 PO (09:54)
--- NOTE | 2017-07-14 10:01 | HHI.DCPOC ---
Discharge Care Plan Diagnosis: (1) Osteomyelitis of toe of left foot (2) Hypertension associated with stage 3 chronic kidney disease due to type 2 diabetes mellitus (3) Diabetes Goals to Promote Your Health * To prevent worsening of your condition and complications * To maintain your health at the optimal level Directions to Meet Your Goals Take your medications as prescribed Follow your dietary instruction Follow activity as directed Keep your appointments as scheduled Take your immunizations and boosters as scheduled If your symptoms worsen call your PCP, if no PCP go to Urgent Care Center or Emergency Room Smoking is Dangerous to Your Health. Avoid second hand smoke Call the 24-hour hour crisis hotline for domestic abuse at Juan Bello MD Jul 14, 2017 10:01
--- NOTE | 2017-07-14 10:03 | HHI.DS ---
Discharge Summary Admission Date Jul 11, 2017 at 17:57 Discharge Date: Jul 14, 2017 Admitting Diagnosis osteomyelitis third toe left foot, diabetes (1) Osteomyelitis of toe of left foot Diagnosis: Principal ICD Codes: M86.9 - Osteomyelitis, unspecified Status: Acute (2) Diabetes Diagnosis: Secondary ICD Codes: E11.9 - Type 2 diabetes mellitus without complications Status: Chronic (3) Hypertension associated with stage 3 chronic kidney disease due to type 2 diabetes mellitus Diagnosis: Secondary ICD Codes: E11.22 - Type 2 diabetes mellitus with diabetic chronic kidney disease; I12.9 - Hypertensive chronic kidney disease with stage 1 through stage 4 chronic kidney disease, or unspecified chronic kidney disease; N18.3 - Chronic kidney disease, stage 3 (moderate) Brief History The patient is a 82-year-old female who presents to the emergency department from her patient appointment coordinator's office for admission to the medical service with a consultation to Dr. Marie. According to the prescription given to the patient the patient appointment coordinator, Dr. Roman, would like bilateral arterial Dopplers performed of the lower extremities secondary to osteomyelitis of the left foot. The patient does note she has an open lesion over the lateral aspect of the third left toe. The patient states initially they thought there was a corn over the affected toe, however, the area is now open and draining. The patient recently finished a prescription for COPD exacerbation that included doxycycline and prednisone. The patient is still taking prednisone, however, finish the antibiotic. The patient does have a history of diabetes and neuropathy, denies any known history of peripheral last color disease. She does note the lower extremities have neuropathy denies any significant pain from the affected toe, but does notice been draining. The patient's primary physician is Dr. Guidry. Symptoms are moderate, possibly exacerbated by history of diabetes, and there are no current alleviating factors. Admit with IV antibiotics and consult to podiatry with surgery to be planned. CBC/BMP: 07/13/17 0842 07/14/17 0741 Significant Findings Laboratory Tests Test 07/11/17 16:20 07/11/17 18:00 07/11/17 18:45 07/12/17 06:15 White Blood Count 24.0 TH/MM3 (4.0-11.0) 14.2 TH/MM3 (4.0-11.0) Neutrophils (%) (Auto) 76.3 % (16.0-70.0) 80.0 % (16.0-70.0) Neutrophils # (Auto) 18.3 TH/MM3 (1.8-7.7) 11.4 TH/MM3 (1.8-7.7) Monocytes # (Auto) 1.7 TH/MM3 (0-0.9) 1.4 TH/MM3 (0-0.9) Platelet Morphology Comment CLUMPED (NORMAL) Blood Urea Nitrogen 32 MG/DL (7-18) 33 MG/DL (7-18) Creatinine 1.44 MG/DL (0.50-1.00) 1.60 MG/DL (0.50-1.00) Random Glucose 185 MG/DL (74-106) Albumin 3.1 GM/DL (3.4-5.0) Estimat Glomerular Filtration Rate 35 ML/MIN (>89) 31 ML/MIN (>89) Urine Leukocyte Esterase SMALL (NEG) Urine WBC 7 /hpf (0-5) Lactic Acid Level 2.1 mmol/L (0.4-2.0) Lymphocytes (%) (Auto) 8.8 % (9.0-44.0) Monocytes (%) (Auto) 9.6 % (0.0-8.0) Potassium Level 3.3 MEQ/L (3.5-5.1) Test 07/13/17 08:42 07/14/17 07:41 White Blood Count 12.7 TH/MM3 (4.0-11.0) Hemoglobin 11.5 GM/DL (11.6-15.3) Monocytes (%) (Auto) 13.8 % (0.0-8.0) Neutrophils # (Auto) 8.6 TH/MM3 (1.8-7.7) Monocytes # (Auto) 1.7 TH/MM3 (0-0.9) Blood Urea Nitrogen 33 MG/DL (7-18) 25 MG/DL (7-18) Creatinine 1.56 MG/DL (0.50-1.00) 1.32 MG/DL (0.50-1.00) Random Glucose 205 MG/DL (74-106) 69 MG/DL (74-106) Estimat Glomerular Filtration Rate 32 ML/MIN (>89) 38 ML/MIN (>89) Chloride Level 110 MEQ/L (98-107) Hospital Course (1) Osteomyelitis of toe of left foot 1. left 3rd toe cellulitis and concern for osteomyelitis 2. ckd 3 3. hypokalemia 4. dm 2 5.copd. Patient was sent to ED per podiatry for concern of osteomyelitis of left 3rd toe. It was red and ulcerated. MRI was performed. Pt was taken to OR and large ulceration to lateral aspect L 3rd digit with edema/ erythema to 3rd digit. Digit disarticulated at MTP joint level and no josette purulence noted. Viable healthy appearance to 3rd metatarsal head and remaining tissue. Culture taken. Irrigation with NS and primary closure with 2-0 nylon, xeroform, 4x4, abd, cast padding, leyla L foot. WBAT L foot in surgical shoe. po abx x 1 week was request per podiatry and f/u clinic next week Tuesday. Pt has neuropathy and frequent falls at home. PT recommended snf and pt agreed. (2) Diabetes (3) Hypertension associated with stage 3 chronic kidney disease due to type 2 diabetes mellitus Pt Condition on Discharge: Stable Discharge Disposition: Discharge to SNF Discharge Instructions DIET: Follow Instructions for: Diabetic Diet Activities you can perform: Weight Bearing as Korin Other Activity Instructions: weight bear with surgical shoe Follow up Referrals: PCP Follow-up - [address] dinorah guidry Podiatry - 07/20/17 with Jo Marie DPM New Medications: Ciprofloxacin (Cipro) 250 Mg Tab 250 MG PO BID for Infection for 7 Days, #14 TAB 0 Refills Temazepam (Restoril) 15 Mg Cap 30 MG PO HS for Insomnia, #15 CAP Continued Medications: Albuterol/Ipratropium (Resp: Albuterol/Ipratropium 2.5 Mg/0.5 Mg) 1 Amp Nebu 1 AMP .XX BID Cimetidine (Cimetidine) 200 Mg Tab 400 MG OR DIRECTED Fluoxetine (Fluoxetine) 40 Mg Cap 40 MG PO DAILY Furosemide (Furosemide) 20 Mg Tab 20 MG PO DAILY Insulin Human Isophan/Regular (Novolin 70/30) 100 Units/Ml Inj 20 UNITS SQ HS, #10 ML Insulin Human Isophan/Regular (Novolin 70/30) 100 Units/Ml Inj 30 UNITS SQ DAILY, #10 ML Lisinopril 30 mg (Lisinopril 30 mg) 30 Mg Tab 30 MG PO DAILY Lovastatin (Lovastatin) 40 Mg Tab 40 MG PO HS Prednisone (Prednisone) 5 Mg Tab 5 MG OR DAILY Discontinued Medications: Metformin ER 24 HR (Metformin ER 24 HR) 1,000 Mg Tab 1000 MG PO BID Temazepam (Temazepam) 30 Mg Cap 30 MG PO HS Juan Bello MD Jul 14, 2017 10:03
[2017-07-14] MEDS ORDERED: PHARMACY ORDERED LAB ONE (13:45)
[2017-07-14 14:16] VITALS: BP 125/63; PULSE 100; RESP 18; TEMP 98.3; O2SAT 95
== END 2017-07-14 16:07 | DRG 617 ==
LOC: NEPE 15:10 → NEDA 17:57 → N05B 19:09
PROVIDERS: ADMIT Hospitalist; ATTEND Hospitalist
PROC: 0Y6U0Z0 Detachment at Left 3rd Toe, Complete, Open Approach (ICD-10-PCS; principal; 2017-07-13 16:13)
DX: E11.69 Type 2 diabetes mellitus with other specified complication (principal); E87.2 Acidosis; E11.22 Type 2 diabetes mellitus with diabetic chronic kidney disease; I13.0 Hypertensive heart and chronic kidney disease with heart failure and stage 1 through stage 4 chronic kidney disease, or unspecified chronic kidney disease; I50.9 Heart failure, unspecified; M86.9 Osteomyelitis, unspecified; E11.40 Type 2 diabetes mellitus with diabetic neuropathy, unspecified; L97.526 Non-pressure chronic ulcer of other part of left foot with bone involvement without evidence of necrosis; N18.3 Chronic kidney disease, stage 3 (moderate); J44.9 Chronic obstructive pulmonary disease, unspecified; E11.621 Type 2 diabetes mellitus with foot ulcer; L03.032 Cellulitis of left toe; E78.5 Hyperlipidemia, unspecified; F41.8 Other specified anxiety disorders; E87.6 Hypokalemia; H40.9 Unspecified glaucoma; M19.90 Unspecified osteoarthritis, unspecified site; R29.6 Repeated falls; Z79.4 Long term (current) use of insulin; Z87.891 Personal history of nicotine dependence; Z88.5 Allergy status to narcotic agent; Z88.6 Allergy status to analgesic agent; Z95.1 Presence of aortocoronary bypass graft
CPT/HCPCS: 71010; 73620; 73630; 73718; 80048; 80053; 81001; 82948; 83605; 83735; 85025; 85610; 85730; 86403; 87015; 87040; 87070; 87086; 87102; 87116; 87147; 87186; 87205; 87206; 88305; 88311; 93005; 94640; 94664; 96374; J0744; J1650; J1815; J2250; J2370; J3010; J3370; J3480; J7030; J7050; J7512; J7613; L3260

== ENCOUNTER 2017-12-10 04:44 | Inpatient (IN) | payer MEDICARE ==
[~2017-12-10] VITALS: Ht 162.6 cm; Wt 80.3 kg
[2017-12-10] VITALS (10 sets, daily range): BP systolic 99–136; BP diastolic 47–90; PULSE 60–80; RESP 16–22; TEMP 97.5–101.1; O2SAT 92–100
[~2017-12-10 04:44] MED LIST changes: +CIPR250T52 PO; -METF-324 PO; +REST15CA PO; -TEMA30CA PO
--- NOTE | 2017-12-10 05:15 | PD ---
HPI Chief Complaint: Fall Time Seen by Provider: 04:50 Travel History International Travel<30 days: No Contact w/Intl Traveler<30days: No Traveled to known affect area: No History of Present Illness HPI Patient is a 82-year-old female who says she was in her arm chair she was sitting then she ended up on the floor.. she does not know how it happened. She does not remember event .. She could not get herself up she was rolling around try to get up banging on the floor for someone to come and help her. She says she has had pain in her right knee and her hip for a while but now it is much worse especially the right knee. She is hard of hearing and is a poor historian.. she insisted she had pain in her knee which is now much worse tonight after possibly falling. But she does not remember falling . Now hip pain as well dull achey , Worse with movement PFSH Past Medical History Arthritis: Yes Asthma: No Blood Disorders: No Anxiety: Yes Depression: Yes Heart Rhythm Problems: Yes Cancer: No Cardiovascular Problems: Yes (HTN,CABG X 5) High Cholesterol: Yes Congestive Heart Failure: Yes COPD: No Diabetes: Yes Patient Takes Glucophage: No (UNKNOWN) Diminished Hearing: Yes Endocrine: Yes Gastrointestinal Disorders: Yes Glaucoma: Yes Genitourinary: Yes Hepatitis: No Hiatal Hernia: No Hypertension: Yes Immune Disorder: No Musculoskeletal: Yes Neurologic: Yes Reproductive: No Respiratory: Yes (COPD) Thyroid Disease: Yes (NODULE REMOVED) Ulcer: Yes Tetanus Vaccination: Unknown Influenza Vaccination: Yes Past Surgical History Abdominal Surgery: Yes (CHOLECYSTECTOMY 80) AICD: No Cardiac Surgery: Yes (98 CORONARY BIPASS X5) Cholecystectomy: Yes Endocrine Surgery: Yes (RIGHT THYROID LOBECTOMY 2003) Eye Surgery: Yes (CATARACT SX BILATERAL) Gynecologic Surgery: Yes (HYSTERECTOMY 1977) Insulin Pump: No Joint Replacement: No Pacemaker: No Other Surgery: Yes Social History Alcohol Use: No Tobacco Use: No Substance Use: No Allergies-Medications (Allergen,Severity, Reaction): Coded Allergies: aspirin (Unverified Allergy, Severe, GI UPSET, 12/10/17) oxycodone (Verified Allergy, Unknown, Hallucinations, 12/10/17) Reported Meds & Prescriptions Reported Meds & Active Scripts Active Reported Tresiba Flextouch Pen Inj (Insulin Degludec Inj) 600 unit/3 ML Pen 36 Units SQ DAILY Temazepam 30 Mg Cap 30 Mg PO HS PRN Spiriva Handihaler (Tiotropium Inh) 18 Mcg Cap 18 Mcg INH HS 1 capsule = 18 mcg Prednisone 5 Mg Tab 5 Mg PO DAILY Poly-Iron 150 (Polysaccharide Iron Complex) 150 Mg Iron Cap 150 Mg PO Q12HR Losartan (Losartan Potassium) 25 Mg Tab 25 Mg PO DAILY Ipratropium Neb (Ipratropium [place]) 0.5 Mg/2.5 Ml Amp 0.5 Mg NEB Q12HR NEB Hydrocodone-Acetaminophen 7.5 Mg-325 Mg Tab 1 Tab PO TID Furosemide 20 Mg Tab 40 Mg PO DAILY Eliquis (Apixaban) 5 Mg Tab 5 Mg PO BID Duloxetine DR (Duloxetine HCl) 60 Mg Capdr 60 Mg PO DAILY Diltiazem ER 24 HR 240 Mg Azeem 240 Mg PO DAILY Digox (Digoxin) 0.125 Mg Tab 0.125 Mg PO DAILY Vitamin D-3 (Cholecalciferol) 1,000 Unit Cap 1,000 PO DAILY Atorvastatin (Atorvastatin Calcium) 20 Mg Tab 20 Mg PO HS Albuterol Neb (Albuterol Sulfate) 2.5 Mg/3 Ml Neb 2.5 Mg NEB QID NEB Review of Systems Except as stated in HPI: all other systems reviewed are Neg Physical Exam Narrative GENERAL: awake alert but has [place] and seems slightly irritable SKIN: Warm and dry. HEAD: Atraumatic. Normocephalic. EYES: Pupils equal and round. No scleral icterus. No injection or drainage. ENT: No nasal bleeding or discharge. Mucous membranes pink and moist. NECK: Trachea midline. No JVD. CARDIOVASCULAR: Regular rate and rhythm. RESPIRATORY: No accessory muscle use. Clear to auscultation. Breath sounds equal bilaterally. GASTROINTESTINAL: Abdomen soft, non-tender, nondistended. Hepatic and splenic margins not palpable. MUSCULOSKELETAL: Extremities Right knee and RIght hip pain No obvious deformities. NEUROLOGICAL: Awake and alert. No obvious cranial nerve deficits. Motor grossly within normal limits. Five out of 5 muscle strength in the arms and legs. Normal speech. PSYCHIATRIC: Appropriate mood and affect; insight and judgment normal. Data Data Last Documented VS Vital Signs Date Time Temp Pulse Resp B/P (MAP) Pulse Ox O2 Delivery O2 Flow Rate FiO2 12/10/17 06:23 70 16 120/50 (73) 99 Nasal Cannula 2.00 12/10/17 04:49 98.0 Orders Orders Complete Blood Count With Diff (12/10/17 05:07) Comprehensive Metabolic Panel (12/10/17 05:07) Creatine Kinase (Cpk) (12/10/17 05:07) Troponin I (12/10/17 05:07) Lipase (12/10/17 05:07) Chest, Single Ap (12/10/17 05:07) Ct Brain W/O Iv Contrast(Rout) (12/10/17 05:07) Hip, Uni(Ap&Lat) W Ap Pelvis (12/10/17 ) Knee, Complete (4vws) (12/10/17 ) Oxycodone-Acetamin 5-325 Mg (Percocet (12/10/17 06:00) Electrocardiogram (12/10/17 ) Urinalysis - C+S If Indicated (12/10/17 06:02) Vancomycin Inj (Vancomycin Inj) (12/10/17 06:15) Piperacil-Tazo 3.375 Gm Premix (Zosyn 3. (12/10/17 06:15) Sodium Chlorid 0.9% 500 Ml Inj (Ns 500 M (12/10/17 06:15) Sodium Chlor 0.9% 1000 Ml Inj (Ns 1000 M (12/10/17 06:15) Urine Culture (12/10/17 06:10) Admit Order (Ed Use Only) (12/10/17 06:28) Labs Laboratory Tests Test 12/10/17 05:15 12/10/17 06:10 White Blood Count 20.4 TH/MM3 Red Blood Count 4.38 MIL/MM3 Hemoglobin 11.1 GM/DL Hematocrit 34.1 % Mean Corpuscular Volume 77.9 FL Mean Corpuscular Hemoglobin 25.4 PG Mean Corpuscular Hemoglobin Concent 32.6 % Red Cell Distribution Width 17.0 % Platelet Count 409 TH/MM3 Mean Platelet Volume 8.7 FL Neutrophils (%) (Auto) 79.0 % Lymphocytes (%) (Auto) 6.8 % Monocytes (%) (Auto) 13.2 % Eosinophils (%) (Auto) 0.7 % Basophils (%) (Auto) 0.3 % Neutrophils # (Auto) 16.1 TH/MM3 Lymphocytes # (Auto) 1.4 TH/MM3 Monocytes # (Auto) 2.7 TH/MM3 Eosinophils # (Auto) 0.1 TH/MM3 Basophils # (Auto) 0.1 TH/MM3 CBC Comment AUTO DIFF Differential Total Cells Counted 100 Neutrophils % (Manual) 68 % Band Neutrophils % 16 % Lymphocytes % 10 % Monocytes % 5 % Basophils % 1 % Neutrophils # (Manual) 17.1 TH/MM3 Differential Comment FINAL DIFF MANUAL Platelet Estimate NORMAL Platelet Morphology Comment NORMAL Ovalocytes 1+ Acanthocytes OCC Blood Urea Nitrogen 72 MG/DL Creatinine 3.95 MG/DL Random Glucose 290 MG/DL Total Protein 6.2 GM/DL Albumin 2.7 GM/DL Calcium Level 8.1 MG/DL Alkaline Phosphatase 231 U/L Aspartate Amino Transf (AST/SGOT) 169 U/L Alanine Aminotransferase (ALT/SGPT) 122 U/L Total Bilirubin 1.4 MG/DL Sodium Level 134 MEQ/L Potassium Level 4.8 MEQ/L Chloride Level 98 MEQ/L Carbon Dioxide Level 23.6 MEQ/L Anion Gap 12 MEQ/L Estimat Glomerular Filtration Rate 11 ML/MIN Total Creatine Kinase 160 U/L Troponin I LESS THAN 0.02 NG/ML Lipase 332 U/L Urine Color YELLOW Urine Turbidity CLOUDY Urine pH 6.0 Urine Specific [place] 1.016 Urine Protein 300 mg/dL Urine Glucose (UA) 70 mg/dL Urine Ketones NEG mg/dL Urine Occult Blood MOD Urine Nitrite NEG Urine Bilirubin NEG Urine Urobilinogen LESS THAN 2.0 MG/DL Urine Leukocyte Esterase LARGE Urine RBC /hpf Urine WBC /hpf Urine WBC Clumps MANY Urine Bacteria MOD /hpf Microscopic Urinalysis Comment CULTURE INDICATED MDM Medical Decision Making Medical Screen Exam Complete: Yes Emergency Medical Condition: Yes Differential Diagnosis HIP fracture vs Knee disloaction or fracture vs syncope vs contusions vs chronic OA pain other Narrative Course pt comes to ER no signs of trauma denies head pain no laceration but she is quite irritable when questioned of her pain and how she ended up on the floor . Pt insists that this pain is new and I order Imaging to rule out fracture , Pt WBC serum very elevated and Urine has innumerable WBC , Pt is given IV antibioitcs and admitted [facility] MD group , I speak to Dr. Urban for Doc [facility] Physician Communication Physician Communication Dr Rutherford Diagnosis Primary Impression: Urinary tract infection Qualified Codes: N30.00 - Acute cystitis without hematuria Additional Impression: Acute renal failure Qualified Codes: N17.9 - Acute kidney failure, unspecified Admitting Information Admitting Physician Requests: it David Astorga MD Dec 10, 2017 05:15
[2017-12-10 05:37] LABS: AUTOMATED NEUTROPHIL # 16.1 TH/MM3 (1.8-7.7); BASOPHIL # 0.1 TH/MM3 (0-0.2); BASOPHIL % 0.3 % (0.0-2.0); EOSINOPHIL # 0.1 TH/MM3 (0-0.4); EOSINOPHIL % 0.7 % (0.0-4.0); HEMATOCRIT 34.1 % (35.0-46.0); HEMOGLOBIN 11.1 GM/DL (11.6-15.3); LYMPH % 6.8 % (9.0-44.0); LYMPHOCYTE # 1.4 TH/MM3 (1.0-4.8); MEAN CELL VOLUME 77.9 FL (80.0-100.0); MEAN CORPUSCULAR HEMOGLOBIN 25.4 PG (27.0-34.0); MEAN CORPUSCULAR HGB CONC 32.6 % (32.0-36.0); MEAN PLATELET VOLUME 8.7 FL (7.0-11.0); MONO % 13.2 % (0.0-8.0); MONOCYTE # 2.7 TH/MM3 (0-0.9); PLATELET COUNT 409 TH/MM3 (150-450); RED BLOOD COUNT 4.38 MIL/MM3 (4.00-5.30); WHITE BLOOD COUNT 20.4 TH/MM3 (4.0-11.0)
[2017-12-10] MEDS ORDERED: oxyCODONE/ACETAMINOPHEN 5 MG/325 MG TAB PO ONE (06:00)
--- NOTE | 2017-12-10 06:00 | RADRPT ---
EXAM DATE/TIME: 12/10/2017 05:35 [facility] COMPARISON: CHEST SINGLE AP, December 10, 2017, 5:35. INDICATIONS : Right flank pain post fall. MEDICAL HISTORY : Hypertension. Diabetes mellitus type II. Chronic obstructive pulmonary disease. SURGICAL HISTORY : Cholecystectomy. Hysterectomy. Appendectomy. Tonsillectomy. CABG. ENCOUNTER: Initial ACUITY: 1 day PAIN SCORE: 3/10 LOCATION: Right flank FINDINGS: There is no evidence of acute fracture. Joint spaces are maintained. Bony mineralization is normal. There is question of a lucency involving the greater trochanter on the right. Whether this reflects a lytic lesion is uncertain. CT scan is recommended for further evaluation if clinically indicated. De generative changes present at the lumbosacral junction. CONCLUSION: 1. There is no evidence of acute fracture. 2. Possible lytic lesion in the greater trochanter. CT scan is recommended for further evaluation if clinically indicated. Tommy Elizabeth MD on December 10, 2017 at 5:55 Board Certified Radiologist. This report was verified electronically.
[2017-12-10 06:01] LABS: ALBUMIN 2.7 GM/DL (3.4-5.0); ALKALINE PHOSPHATASE 231 U/L (45-117); ALT (GPT) 122 U/L (10-53); AST (GOT) 169 U/L (15-37); BICARBONATE 23.6 MEQ/L (21.0-32.0); BLOOD UREA NITROGEN 72 MG/DL (7-18); CALCIUM 8.1 MG/DL (8.5-10.1); CHLORIDE 98 MEQ/L (98-107); CREATININE 3.95 MG/DL (0.50-1.00); GLOMERULAR FILTRATION RATE 11 ML/MIN (>89); GLUCOSE,RANDOM 290 MG/DL (74-106); SODIUM (NA) 134 MEQ/L (136-145); TOTAL BILIRUBIN ADULT 1.4 MG/DL (0.2-1.0); TOTAL PROTEIN 6.2 GM/DL (6.4-8.2); TROPONIN I LESS THAN 0.02 NG/ML (0.02-0.05)
--- NOTE | 2017-12-10 06:03 | RADRPT ---
EXAM DATE/TIME: 12/10/2017 05:35 [facility] COMPARISON: CHEST SINGLE AP, July 11, 2017, 15:52. INDICATIONS : Shortness of breath. MEDICAL HISTORY : Hypertension. Diabetes mellitus type II. Chronic obstructive pulmonary disease. SURGICAL HISTORY : Cholecystectomy. Hysterectomy. Appendectomy. Tonsillectomy. CABG. ENCOUNTER: Initial ACUITY: 1 day PAIN SCORE: 0/10 LOCATION: Bilateral chest FINDINGS: The cardiac silhouette is normal in transverse diameter. The lungs are free of acute parenchymal opac ity. No effusions are identified. There is elevation of the right hemidiaphragm. CONCLUSION: 1. Cardiomegaly. No acute pulmonary disease. Tommy Elizabeth MD on December 10, 2017 at 6:01 Board Certified Radiologist. This report was verified electronically.
--- NOTE | 2017-12-10 06:04 | RADRPT ---
EXAM DATE/TIME: 12/10/2017 05:39 [facility] COMPARISON: No previous studies available for comparison. INDICATIONS : Right knee pain from a fall. MEDICAL HISTORY : Hypertension. Diabetes mellitus type II. Chronic obstructive pulmonary disease. SURGICAL HISTORY : Cholecystectomy. Hysterectomy. Appendectomy. Tonsillectomy. CABG. ENCOUNTER: Initial ACUITY: 1 day PAIN SCORE: 9/10 LOCATION: Right knee FINDINGS: There is moderate osteoarthritis with joint space narrowing and marginal osteophyte formation in the medial tibiofemoral compartmentThere is spur formation off the superior aspect of the patella. There is no evidence of acute fracture. Bony mineralization is normal. CONCLUSION: 1. There is no evidence of acute fracture. Tommy Elizabeth MD on December 10, 2017 at 6:02 Board Certified Radiologist. This report was verified electronically.
--- NOTE | 2017-12-10 06:06 | RADRPT ---
EXAM DATE/TIME: 12/10/2017 05:47 [facility] COMPARISON: No previous studies available for comparison. INDICATIONS : Trauma, fall. Syncopal episode. RADIATION DOSE: 36.26 CTDIvol (mGy) MEDICAL HISTORY : Hypertension. Diabetes mellitus type 2. SURGICAL HISTORY : None. ENCOUNTER: Initial ACUITY: 1 day PAIN SCALE: 5/10 LOCATION: cranial TECHNIQUE: Multiple contiguous axial images were obtained of the head. Using automated exposure control and adj ustment of the mA and/or kV according to patient size, radiation dose was kept as low as reasonably a chievable to obtain optimal diagnostic quality images. DICOM format image data is available electro nically for review and comparison. FINDINGS: CEREBRUM: The ventricles are normal for age. No evidence of midline shift, mass lesion, hemorrhage or acute in farction. No extra-axial fluid collections are seen. POSTERIOR FOSSA: The cerebellum and brainstem are intact. The 4th ventricle is midline. The cerebellopontine angle i s unremarkable. EXTRACRANIAL: The visualized portion of the orbits is intact. SKULL: The calvaria is intact. No evidence of skull fracture. CONCLUSION: 1. No evidence of acute intracranial pathology. No masses are identified. Tommy Elizabeth MD on December 10, 2017 at 6:04 Board Certified Radiologist. This report was verified electronically.
[2017-12-10] MEDS ORDERED: SODIUM CHLOR 0.9% 1000 ML INJ 1,000 ML IV SCH (06:15)
[2017-12-10] MEDS ORDERED: VANCOMYCIN INJ 1,000 MG in SODIUM CHLOR 0.9% 250 ML INJ 250 ML IV ONE (06:15)
[2017-12-10] MEDS ORDERED: PIPERACIL-TAZO 3.375 GM PREMIX 50 ML IV ONE (06:15)
[2017-12-10] MEDS ORDERED: SODIUM CHLORID 0.9% 500 ML INJ 500 ML IV ONE (06:15)
[2017-12-10 06:26] LABS: BACTERIA, URINE MOD /hpf; BILIRUBIN, URINE NEG (NEG); BLOOD, URINE MOD (NEG); GLUCOSE,URINE 70 mg/dL (NEG); KETONE, URINE NEG (NEG); NITRITE,URINE NEG (NEG); URINE COLOR YELLOW (YELLW/STRAW); URINE LEUKOCYTE ESTERASE LARGE (NEG); WHITE BLOOD CELL CLUMPS MANY
[2017-12-10 07:06] LABS: ACANTHOCYTES OCC (NORMAL); BANDS 16 % (0-6); BASOPHILS 1 % (0-2); LYMPHOCYTES 10 % (9-44); MONOCYTES 5 % (0-8); NEUTROPHIL # MANUAL DIFF 17.1 TH/MM3 (1.8-7.7); OVALOCYTES 1+ (NORMAL); POLYS (SEG NEUTROPHILS) 68 % (16-70)
[2017-12-10] MEDS ORDERED: IPRA0.02 NEB (10:26)
[2017-12-10] MEDS ORDERED: FURO20TA PO (10:26)
[2017-12-10] MEDS ORDERED: DIGO0.127 PO (10:26)
[2017-12-10] MEDS ORDERED: APIX5TAB PO (10:26)
[2017-12-10] MEDS ORDERED: DILT1TAB4 PO (10:26)
[2017-12-10] MEDS ORDERED: DULO1CAP3 PO (10:26)
[2017-12-10] MEDS ORDERED: ALBU0.08 NEB (10:26)
[2017-12-10] MEDS ORDERED: HYDR-3580 PO (10:26)
[2017-12-10] MEDS ORDERED: D31000CA3 PO (10:26)
[2017-12-10] MEDS ORDERED: ATOR20TA15 PO (10:26)
[2017-12-10] MEDS ORDERED: NU-IRON PO (10:26)
[2017-12-10] MEDS ORDERED: LOSA25TA PO (10:26)
[2017-12-10] MEDS ORDERED: PRED5TAB PO (10:55)
[2017-12-10] MEDS ORDERED: TEMA30CA PO (10:55)
[2017-12-10] MEDS ORDERED: INSU1INJ13 SQ (10:55)
[2017-12-10] MEDS ORDERED: SPIRCAP INH (10:55)
[2017-12-10] MEDS ORDERED: ACETAMINOPHEN 500 MG CPLT PO ONE (11:00)
[2017-12-10] MEDS: PIPERACIL-TAZO 2.25 GM PREMIX 50 ML IV SCH ×3 (11:21→23:53)
[2017-12-10] MEDS ORDERED: PIPERACIL-TAZO 3.375 GM PREMIX 50 ML IV SCH (12:00)
[2017-12-10 12:04] LABS: AUTOMATED NEUTROPHIL # 8.2 TH/MM3 (1.8-7.7); BASOPHIL % 0.4 % (0.0-2.0); EOSINOPHIL % 0.1 % (0.0-4.0); HEMATOCRIT 32.9 % (35.0-46.0); HEMOGLOBIN 10.9 GM/DL (11.6-15.3); LYMPH % 1.5 % (9.0-44.0); LYMPHOCYTE # 0.1 TH/MM3 (1.0-4.8); MEAN CORPUSCULAR HEMOGLOBIN 25.6 PG (27.0-34.0); MEAN CORPUSCULAR HGB CONC 33.2 % (32.0-36.0); MEAN PLATELET VOLUME 8.8 FL (7.0-11.0); MONO % 0.9 % (0.0-8.0); MONOCYTE # 0.1 TH/MM3 (0-0.9); NEUT % 97.1 % (16.0-70.0); PLATELET COUNT 378 TH/MM3 (150-450); RED BLOOD COUNT 4.27 MIL/MM3 (4.00-5.30); RED CELL DISTRIBUTION WIDTH 16.9 % (11.6-17.2); WHITE BLOOD COUNT 8.5 TH/MM3 (4.0-11.0)
[2017-12-10 12:29] LABS: ALBUMIN 2.4 GM/DL (3.4-5.0); BICARBONATE 22.4 MEQ/L (21.0-32.0); BLOOD UREA NITROGEN 74 MG/DL (7-18); CALCIUM 7.9 MG/DL (8.5-10.1); CHLORIDE 102 MEQ/L (98-107); CREATININE 4.17 MG/DL (0.50-1.00); GLOMERULAR FILTRATION RATE 10 ML/MIN (>89); GLUCOSE,RANDOM 288 MG/DL (74-106); SODIUM (NA) 136 MEQ/L (136-145)
[2017-12-10 12:30] LABS: ALT (GPT) 91 U/L (10-53); AST (GOT) 107 U/L (15-37)
[2017-12-10 12:33] LABS: ALKALINE PHOSPHATASE 263 U/L (45-117); TOTAL BILIRUBIN ADULT 2.5 MG/DL (0.2-1.0); TOTAL PROTEIN 5.5 GM/DL (6.4-8.2)
[2017-12-10 15:46] LABS: CALCIUM 7.8 MG/DL (8.5-10.1); CREATININE 4.3 MG/DL (0.50-1.00)
[2017-12-10] MEDS ORDERED: SODIUM CHLOR 0.45% 500 ML INJ 500 ML IV ONE (16:00)
[2017-12-10] MEDS ORDERED: 1/2 NS + KCL 20 MEQ INJ 1,000 ML IV SCH (16:00)
--- NOTE | 2017-12-10 16:05 | HHI.HP ---
HPI Service [facility] Hospitalists Primary Care Physician Carlo Guidry M.D. Admission Diagnosis ARF afib UTI Chief Complaint: AMS Travel History International Travel<30 Days: No Contact w/Intl Traveler <30 Da: No Traveled to Known Affected Are: No History of Present Illness Patient is an 82-year-old female with history of diabetes, hypertension, coronary artery disease, status post CABG, depression, anxiety, COPD, congestive heart failure. Patient was hospitalized here at [facility] June 2017 due to left foot osteomyelitis. Patient was brought to [facility] by EMS. The exact events are unclear, but patient was found on the floor of her home, apartment, banging on the floor for help. In the ER patient was found to have a urinary tract infection and acute renal failure. Patient noted to have fever with T-max of 101 at 9:45 AM. Patient noted to have pyuria on admission with elevated white count of 20.4 K. Patient received vancomycin and Zosyn in the ER patient's WBC is currently 8.4. Blood cultures and urine culture are pending. Chest x-ray did not show any infiltrates. CT brain did not show any acute findings. Patient had mild elevation of her transaminases. This afternoon patient was found to be obtunded by nursing staff. Halicat was called. ABG obtained without marked hypercapnia. Ammonia level is within normal limits. Case discussed with patient's great granddaughter who works here at [facility] and pharmacy. Patient discussed with patient's daughter by phone, Ms. Zulma Horton. Per family, patient has been having more difficulty ambulating over the last several months due to worsening osteoarthritis. Patient recently saw her primary care physician, Dr. Guidry due to arthritic pain. Patient was started on Neurontin and tapered prednisone. Patient's daughter, Ms. Horton is the only living child. Ms. Horton requested DNR status. Most likely patient's change in mental status is due to metabolic encephalopathy secondary to patient's urinary tract infection and acute renal failure. Will transfer patient to the ICU. Request critical care consultation. Request neurology consultation. Patient is not following commands. Patient does not open her eyes to voice. Continue intravenous fluids. Continue IV antibiotics. Obtain EEG. Consider MRI of brain. If patient does not make improvement over the next 24 hours, then family is agreeable to exploring hospice. Review of Systems ROS Limitations: Unresponsive Past Family Social History Past Medical History - Recent hospitalization for osteomyelitis -Osteoarthritis -Depression -Anxiety -Coronary artery disease, status post CABG -Hyperlipidemia -History of congestive heart failure -Diabetes -COPD Past Surgical History -Cholecystectomy -CABG - Right thyroid lobectomy - Cataract surgery - Hysterectomy Reported Medications Reported Meds & Active Scripts Active Reported Tresiba Flextouch Pen Inj (Insulin Degludec Inj) 600 unit/3 ML Pen 36 Units SQ DAILY Temazepam 30 Mg Cap 30 Mg PO HS PRN Spiriva Handihaler (Tiotropium Inh) 18 Mcg Cap 18 Mcg INH HS 1 capsule = 18 mcg Prednisone 5 Mg Tab 5 Mg PO DAILY Poly-Iron 150 (Polysaccharide Iron Complex) 150 Mg Iron Cap 150 Mg PO Q12HR Losartan (Losartan Potassium) 25 Mg Tab 25 Mg PO DAILY Ipratropium Neb (Ipratropium [place]) 0.5 Mg/2.5 Ml Amp 0.5 Mg NEB Q12HR NEB Hydrocodone-Acetaminophen 7.5 Mg-325 Mg Tab 1 Tab PO TID Furosemide 20 Mg Tab 40 Mg PO DAILY Eliquis (Apixaban) 5 Mg Tab 5 Mg PO BID Duloxetine DR (Duloxetine HCl) 60 Mg Capdr 60 Mg PO DAILY Diltiazem ER 24 HR 240 Mg Azeem 240 Mg PO DAILY Digox (Digoxin) 0.125 Mg Tab 0.125 Mg PO DAILY Vitamin D-3 (Cholecalciferol) 1,000 Unit Cap 1,000 PO DAILY Atorvastatin (Atorvastatin Calcium) 20 Mg Tab 20 Mg PO HS Albuterol Neb (Albuterol Sulfate) 2.5 Mg/3 Ml Neb 2.5 Mg NEB QID NEB Allergies: Coded Allergies: aspirin (Unverified Allergy, Severe, GI UPSET, 12/10/17) oxycodone (Verified Allergy, Unknown, Hallucinations, 12/10/17) Family History Noncontributory Social History -Patient lives alone, but family lives locally -No tobacco use -No alcohol use -No illicit street drugs Physical Exam Vital Signs Vital Signs Date Time Temp Pulse Resp B/P (MAP) Pulse Ox O2 Delivery O2 Flow Rate FiO2 12/10/17 12:39 98.3 60 18 99/47 (64) 93 12/10/17 10:44 94 Nasal Cannula 2.00 12/10/17 09:45 101.1 67 18 110/51 (70) 94 12/10/17 09:09 12/10/17 08:32 80 22 136/90 (105) 96 Nasal Cannula 2.00 12/10/17 06:23 70 16 120/50 (73) 99 Nasal Cannula 2.00 12/10/17 04:49 98.0 74 16 118/61 (80) 93 Physical Exam GENERAL: NAD SKIN: No rashes, ecchymoses or lesions. Cool and dry. HEAD: Atraumatic. Normocephalic. No temporal or scalp tenderness. EYES: Pupils equal round and reactive. Extraocular motions intact. No scleral icterus. No injection or drainage. ENT: Nose without bleeding, purulent drainage or septal hematoma. Throat without erythema, tonsillar hypertrophy or exudate. Uvula midline. Airway patent. NECK: Trachea midline. No JVD or lymphadenopathy. Supple, nontender, no meningeal signs. CARDIOVASCULAR: Regular rate and rhythm without murmurs, gallops, or rubs. RESPIRATORY: Clear to auscultation. Breath sounds equal bilaterally. No wheezes , rales, or rhonchi. GASTROINTESTINAL: Abdomen soft, non-tender, nondistended. No hepato-splenomegaly , or palpable masses. No guarding. MUSCULOSKELETAL: Extremities without clubbing, cyanosis, or edema. No joint tenderness, effusion, or edema noted. No calf tenderness. Negative Homans sign bilaterally. NEUROLOGICAL: Patient is unresponsive. Patient mumbles a few words inaudibly. Patient does not respond to sternal rub Laboratory Laboratory Tests Test 12/10/17 05:15 12/10/17 06:10 12/10/17 11:11 12/10/17 11:30 White Blood Count 20.4 8.5 Red Blood Count 4.38 4.27 Hemoglobin 11.1 10.9 Hematocrit 34.1 32.9 Mean Corpuscular Volume 77.9 77.0 Mean Corpuscular Hemoglobin 25.4 25.6 Mean Corpuscular Hemoglobin Concent 32.6 33.2 Red Cell Distribution Width 17.0 16.9 Platelet Count 409 378 Mean Platelet Volume 8.7 8.8 Neutrophils (%) (Auto) 79.0 97.1 Lymphocytes (%) (Auto) 6.8 1.5 Monocytes (%) (Auto) 13.2 0.9 Eosinophils (%) (Auto) 0.7 0.1 Basophils (%) (Auto) 0.3 0.4 Neutrophils # (Auto) 16.1 8.2 Lymphocytes # (Auto) 1.4 0.1 Monocytes # (Auto) 2.7 0.1 Eosinophils # (Auto) 0.1 0.0 Basophils # (Auto) 0.1 0.0 CBC Comment AUTO DIFF DIFF FINAL Differential Total Cells Counted 100 Neutrophils % (Manual) 68 Band Neutrophils % 16 Lymphocytes % 10 Monocytes % 5 Basophils % 1 Neutrophils # (Manual) 17.1 Differential Comment FINAL DIFF MANUAL Platelet Estimate NORMAL Platelet Morphology Comment NORMAL Ovalocytes 1+ Acanthocytes OCC Blood Urea Nitrogen 72 74 Creatinine 3.95 4.17 Random Glucose 290 288 Total Protein 6.2 5.5 Albumin 2.7 2.4 Calcium Level 8.1 7.9 Alkaline Phosphatase 231 263 Aspartate Amino Transf (AST/SGOT) 169 107 Alanine Aminotransferase (ALT/SGPT) 122 91 Total Bilirubin 1.4 2.5 Sodium Level 134 136 Potassium Level 4.8 4.5 Chloride Level 98 102 Carbon Dioxide Level 23.6 22.4 Anion Gap 12 12 Estimat Glomerular Filtration Rate 11 10 Total Creatine Kinase 160 Troponin I LESS THAN 0.02 Lipase 332 Urine Color YELLOW Urine Turbidity CLOUDY Urine pH 6.0 Urine Specific [place] 1.016 Urine Protein 300 Urine Glucose (UA) 70 Urine Ketones NEG Urine Occult Blood MOD Urine Nitrite NEG Urine Bilirubin NEG Urine Urobilinogen LESS THAN 2.0 Urine Leukocyte Esterase LARGE Urine RBC Urine WBC Urine WBC Clumps MANY Urine Bacteria MOD Microscopic Urinalysis Comment CULTURE INDICATED Lactic Acid Level 3.8 Test 12/10/17 14:47 12/10/17 15:04 12/10/17 15:10 Blood Gas Puncture Site RT RADIAL Blood Gas Patient Temperature 98.6 Blood Gas HCO3 22 Blood Gas Base Excess -3.3 Blood Gas Oxygen Saturation 88 Arterial Blood pH 7.34 Arterial Blood Partial Pressure CO2 41 Arterial Blood Partial Pressure O2 62 Arterial Blood Oxygen Content 13.7 Arterial Blood Carboxyhemoglobin 2.1 Arterial Blood Methemoglobin 0.8 Blood Gas Hemoglobin 11.0 Oxygen Delivery Device NASAL CANNULA Blood Gas Liter Flow 3 Lactic Acid Level 2.4 Blood Urea Nitrogen 76 Creatinine 4.30 Random Glucose 257 Calcium Level 7.8 Sodium Level 138 Potassium Level 4.4 Chloride Level 105 Carbon Dioxide Level 22.0 Anion Gap 11 Estimat Glomerular Filtration Rate 10 Ammonia 29 Date/Time Source Procedure Growth Status 12/10/17 11:30 Blood Peripheral Aerobic Blood Culture Pending Received 12/10/17 11:30 Blood Peripheral Anaerobic Blood Culture Pending Received 12/10/17 06:10 Urine Clean Catch Urine Culture Pending Received Result Diagram: 12/10/17 1130 12/10/17 1510 Imaging Last Impressions Head CT 12/10/17 0507 Signed Impressions: Service Date/Time: Sunday, December 10, 2017 05:47 - CONCLUSION: 1. No evidence of acute intracranial pathology. No masses are identified. Tommy Elizabeth MD Chest X-Ray 12/10/17 0507 Signed Impressions: Service Date/Time: Sunday, December 10, 2017 05:35 - CONCLUSION: 1. Cardiomegaly. No acute pulmonary disease. Tommy Elizabeth MD Knee X-Ray 12/10/17 0000 Signed Impressions: Service Date/Time: Sunday, December 10, 2017 05:39 - CONCLUSION: 1. There is no evidence of acute fracture. Tommy Elizabeth MD Hip and Pelvis X-Ray 12/10/17 0000 Signed Impressions: Service Date/Time: Sunday, December 10, 2017 05:35 - CONCLUSION: 1. There is no evidence of acute fracture. 2. Possible lytic lesion in the greater trochanter. CT scan is recommended for further evaluation if clinically indicated. oTmmy Elizabeth MD Capchristiani VTE Risk Assessment Caprini VTE Risk Assessment: Mod/High Risk (score >= 2) Caprini Risk Assessment Model Point Value = 1 Point Value = 2 Point Value = 3 Point Value = 5 Age 41-60 Minor surgery BMI > 25 kg/m2 Swollen legs Varicose veins or History of unexplained or recurrent spontaneous Oral contraceptives or hormone replacement Sepsis (< 1 month) Serious lung disease, including pneumonia (< 1 month) Abnormal pulmonary function Acute myocardial infarction Congestive heart failure (< 1 month) History of inflammatory bowel disease Medical patient at bed rest Age 61-74 Arthroscopic surgery Major open surgery (> 45 min) Laparoscopic surgery (> 45 min) Malignancy Confined to bed (> 72 hours) Immobilizing plaster cast Central venous access Age >= 75 History of VTE Family history of VTE Factor V Leiden Prothrombin [id number] Lupus anticoagulant Anticardiolipin antibodies Elevated serum homocysteine Heparin-induced thrombocytopenia Other congenital or acquired thrombophilia Stroke (< 1 month) Elective arthroplasty Hip, pelvis, or leg fracture Acute spinal cord injury (< 1 month) Prophylaxis Regimen Total Risk Factor Score Risk Level Prophylaxis Regimen 0-1 Low Early ambulation 2 Moderate Order ONE of the following: *Sequential Compression Device (SCD) *Heparin 5000 units SQ BID 3-4 Higher Order ONE of the following medications: *Heparin 5000 units SQ TID *Enoxaparin/Lovenox 40 mg SQ daily (WT < 150 kg, CrCl > 30 mL/min) *Enoxaparin/Lovenox 30 mg SQ daily (WT < 150 kg, CrCl > 10-29 mL/min) *Enoxaparin/Lovenox 30 mg SQ BID (WT < 150 kg, CrCl > 30 mL/min) AND/OR *Sequential Compression Device (SCD) 5 or more Highest Order ONE of the following medications: *Heparin 5000 units SQ TID (Preferred with Epidurals) *Enoxaparin/Lovenox 40 mg SQ daily (WT < 150 kg, CrCl > 30 mL/min) *Enoxaparin/Lovenox 30 mg SQ daily (WT < 150 kg, CrCl > 10-29 mL/min) *Enoxaparin/Lovenox 30 mg SQ BID (WT < 150 kg, CrCl > 30 mL/min) AND *Sequential Compression Device (SCD) Assessment and Plan Problem List: (1) Acute metabolic encephalopathy ICD Codes: G93.41 - Metabolic encephalopathy Status: Acute Plan: -Patient was hospitalized June 2017 due to osteomyelitis -Family reports that patient has had more difficulty with ADLs in the last several months due to arthritis -Patient recently saw her primary care physician for complaints of arthritis and was prescribed gabapentin and prednisone -Patient was brought to [facility] by EMS. Patient was on the floor of her apartment and banging on the floor to get to help. -In the ER, patient was found to have acute renal failure and pyuria -Patient received IV vancomycin and Zosyn. Also IV fluids -Patient found to be obtunded by nursing staff -CT brain obtained in the ER (12/10/17) showed no acute abnormalities -Likely etiology of patient's altered mental status is metabolic encephalopathy due to urinary tract infection, acute renal failure, and advanced age -Patient will be bolused intravenous fluids, then will run one half normal saline at 125 mL's per hour -Continue IV Zosyn -Transfer to ICU -Request consultation with critical care medicine -Request neurology consultation -Obtain EEG -Consider MRI brain -Case discussed at length with patient's daughter, Ms. sullivan. She requested DNR CODE STATUS -If no improvement in 24 hours we will consider transitioning to hospice -DVT prophylaxis -Supportive care (2) UTI (urinary tract infection) ICD Codes: N39.0 - Urinary tract infection, site not specified Status: Acute Plan: - zosyn - urine culture pending (3) ARF (acute renal failure) ICD Codes: N17.9 - Acute kidney failure, unspecified Status: Acute Plan: - see above - IVF - repeat BMP in AM (4) Diabetes ICD Codes: E11.9 - Type 2 diabetes mellitus without complications Status: Chronic Plan: - hold outpt DM medications - SSI (5) CAD (coronary artery disease) ICD Codes: I25.10 - Atherosclerotic heart disease of [place] coronary artery without angina pectoris Physician Certification 2 Midnight Certification Type: Admission for Inpatient Services Order for Inpatient Services The services are ordered in accordance with Medicare regulations or non- Medicare payer requirements, as applicable. In the case of services not specified as inpatient-only, they are appropriately provided as inpatient services in accordance with the 2-midnight benchmark. Estimated LOS (days): 3 3 days is the estimated time the patient will need to remain in the hospital, assuming treatment plan goals are met and no additional complications. Post-Hospital Plan: Not yet determined Problem Qualifiers (1) UTI (urinary tract infection): (2) ARF (acute renal failure): Qualified Codes: N17.9 - Acute kidney failure, unspecified (3) Diabetes: Yaw Hightower DO Dec 10, 2017 16:05
[2017-12-10] MEDS ORDERED: DEXTROSE 50% IN WATER 50 ML VIAL(D50) IV PUSH PRN ×2 (16:30)
[2017-12-10] MEDS ORDERED: SODIUM CHLOR 0.9% 1000 ML INJ 1,000 ML IV ONE (16:30)
[2017-12-10] MEDS: SODIUM CHLOR 0.9% 1000 ML INJ 1,000 ML IV SCH (16:30)
[2017-12-10] MEDS ORDERED: METOPROLOL TARTRATE 5 MG/5 ML VIAL IV PUSH PRN (16:30)
[2017-12-10] MEDS ORDERED: VANCOMYCIN INJ 1,000 MG in SODIUM CHLOR 0.9% 250 ML INJ 250 ML IV SCH (16:30)
[2017-12-10] MEDS ORDERED: GLUCAGON 1 MG/ML VIAL OTHER PRN ×2 (16:30)
[2017-12-10] MEDS ORDERED: RESP: ALBUTEROL 2.5 MG/IPRATROPIUM 0.5 MG NEB (PRN) NEB ×2 (16:30)
[2017-12-10] MEDS ORDERED: Vancomycin Consult Pharmacy 1 EA OTHER SCH (16:30)
--- NOTE | 2017-12-10 16:54 | EKG ---
Date Performed: 12/10/2017 Time Performed: 06:08:12 PTAGE: 82 years EKG: ATRIAL FIBRILLATION MODERATE INTRAVENTRICULAR CONDUCTION DELAY NONSPECIFIC ST & T-WAVE ABNO RMALITY ABNORMAL ECG Compared to PREVIOUS TRACING , patient now appears to be in atrial fibrillation. PREVIOUS TRACIN 17.19 DOCTOR: Luana Barajas Interpretating Date/Time 12/10/2017 16:52:23
[2017-12-10] MEDS ORDERED: INSULIN ASPART SUPPLEMENTAL SCALE SQ SCH (17:00)
[2017-12-10 17:10] LABS: FREE T4 1.24 NG/DL (0.76-1.46)
--- NOTE | 2017-12-10 17:15 | MB ---
cc: Katherine Jean Baptiste MD DATE: 12/10/2017 HISTORY OF PRESENT ILLNESS: The patient is an 82-year-old female with multiple comorbidities which include hypertension, diabetes mellitus, atrial fibrillation, COPD, CHF, coronary artery disease with previous CABG and a history of left foot osteomyelitis in 06/2017. She was admitted under Dr. Hightower service today for acute renal failure, UTI and altered mental status. The patient was initially admitted to the medical floor. A CT scan of the brain on arrival showed no evidence of any acute intracranial pathology. She also had a chest x-ray, which showed cardiomegaly, otherwise no acute pulmonary disease. Her laboratory data was significant for a leukocytosis with a WBC of 20.4, which resolved on repeat CBC at 11:30 this morning, where her WBC was 8.5. As the patient also had renal failure with a creatinine of 3.95, which worsened to 4.3 this afternoon. In the ED, she was given 500 mL of normal saline along with vancomycin and Zosyn. Due to altered mental status, ABG was performed, which showed a pH of 7.34, CO2 of 41, PaO2 of 62, bicarbonate 22, and saturation 88% on 3 liter oxygen. Her lactic acid level was 3.8, which improved to 2.5. She was transferred to [facility] for closer observation and critical care medicine was consulted for critical care management. Dr. Hightower spoke to the patient's daughter and she made her a No Code DNR. If there is no improvement in the next 48 hours, family is considering possible comfort care. PAST MEDICAL HISTORY: Significant for history of left foot osteomyelitis, depression, anxiety, coronary artery disease, hyperlipidemia, history of CHF, diabetes mellitus, COPD, hypertension. PAST SURGICAL HISTORY: CABG, previous right thyroid lobectomy, previous cholecystectomy, previous cataract surgery and hysterectomy. ALLERGIES: 1. ASPIRIN. 2. OXYCODONE. FAMILY HISTORY: Noncontributing to present illness. SOCIAL HISTORY: The patient lives alone. No history of tobacco or alcohol use. MEDICATIONS: Reported medications at home include Spiriva, prednisone, Eliquis, digoxin, and Albuterol. REVIEW OF SYSTEMS: As per HPI. The rest of the review of systems unobtainable due to the patient's mental status. PHYSICAL EXAMINATION: GENERAL: An 82-year-old female lying in bed in no acute distress. VITAL SIGNS: She has a T-max of 101.4, pulse of 61, blood pressure 112/57, saturation 96%. HEENT: Atraumatic, normocephalic. Pupils are equal, round, reactive to light and accommodation. Extraocular muscles intact. Conjunctivae pink. Nonicteric sclerae. Dry mucous membranes. NECK: Supple. No JVD, adenopathy, or thyromegaly. Trachea in the midline. HEART: Irregularly irregular. Normal S1, S2. No murmurs, rubs or gallops noted. PULMONARY: Bilateral air entry. No rales or wheezing. ABDOMEN: Soft, nontender. No distention. Positive bowel sounds. EXTREMITIES: No cyanosis, clubbing, or edema. NEUROLOGIC: Lethargic, nonverbal. LABORATORY DATA: Sodium 138, potassium 4.4, chloride 105, CO2 of 22, BUN 76, creatinine 4.3, glucose 257, calcium 7.8. Ammonia level 29. WBC 8.5, hemoglobin 10.9, hematocrit 32, platelet count 378. Urinalysis positive for large leukocyte esterase, many WBC clumps, moderate bacteria. RADIOGRAPHIC STUDIES: CT brain showed no acute intracranial pathology. Chest x-ray showed cardiomegaly, otherwise no acute pulmonary disease. X-ray of the hip and pelvis showed no evidence of acute fracture. EKG showed atrial fibrillation, rate of 71 beats per minute. IMPRESSION: 1. Respiratory insufficiency. 2. Encephalopathy, multifactorial, likely metabolic secondary to renal failure and infection. 3. Acute kidney injury. 4. Lactic acidemia. 5. Elevated liver enzymes. 6. Urinary tract infection. 7. Dehydration. 8. Anemia. 9. Atrial fibrillation, rate controlled. 10. Hyperglycemia with underlying history of diabetes mellitus. 11. History of hypertension. 12. History of coronary artery disease and coronary artery bypass grafting. 13. Chronic obstructive pulmonary disease. RECOMMENDATIONS: 1. Monitor neuro status closely and avoid any sedatives. A CT scan of the brain which was obtained earlier today showed no evidence of any acute pathology. 2. Continue with oxygen and maintain sats above 92%. 3. Place on bronchodilators in the form of DuoNeb q.4 hours plus q.2 hours p.r.n. for shortness of breath. 4. Aspiration precautions. Continue prednisone 5 mg daily. 5. Monitor heart rate and blood pressure closely and maintain MAP greater than 65 mmHg. Hold antihypertensive medications for now. In addition, we will hold Lipitor due to elevated liver enzymes. Check a digoxin level. Continue with IV hydration. We will give an additional 1 liter bolus normal saline. Serial lactic acid monitoring until clear. 6. Monitor renal function, I's and O's and avoid nephrotoxins. Consult nephrology service and will obtain ultrasound of the kidney. Rule out hydronephrosis. Continue with IV hydration as stated above and placed on maintenance fluids NS at 125 mL an hour. 7. Keep n.p.o. until mental status improves. Place on Pepcid for gastrointestinal prophylaxis. Monitor LFTs and we will obtain an ultrasound of the liver. 8. Continue with broad spectrum antibiotics. She was given vancomycin and Zosyn in the ED. We will continue the Zosyn and adjust doses of antibiotics per renal function. Followup on blood and urine culture. A chest x-ray in the ED showed no acute cardiopulmonary disease. 9. Monitor CBC and coags. 10. Place on a medium sliding scale insulin with Accu-Cheks for glycemic control. 11. Gastrointestinal prophylaxis with Pepcid and DVT prophylaxis with SCDs and on Eliquis. 12. CODE STATUS. Dr. Hightower discussed code status with the patient's daughter and she was made a No Code DNR as stated previously, 13. Further recommendations will be based on hospital course. MD BRET Luong/OTF , 04:35 PM , 05:14 PM [facility]
[2017-12-10] MEDS: RESP: ALBUTEROL 2.5 MG/IPRATROPIUM 0.5 MG NEB (SCH) NEB ×2 (19:48→23:16)
[2017-12-10] MEDS: TIOTROPIUM BROMIDE 18 MCG INH INH SCH (20:35)
[2017-12-10] MEDS: APIXABAN 5 MG TABLET PO SCH (20:36)
[2017-12-10] MEDS: FAMOTIDINE 20 MG/2 ML VIAL IV PUSH SCH (20:46)
[2017-12-10] MEDS: INSULIN NovoLIN REGULAR SUPPLEMENTAL SCALE SQ SCH ×2 (20:52→23:53)
[2017-12-10 22:35] LABS: BICARBONATE 19.9 MEQ/L (21.0-32.0); CALCIUM 7.5 MG/DL (8.5-10.1); CREATININE 4.09 MG/DL (0.50-1.00)
--- NOTE | 2017-12-10 23:10 | RADRPT ---
EXAM DATE/TIME: 12/10/2017 22:15 [facility] COMPARISON: No previous studies available for comparison. INDICATIONS : Elevated lab values. MEDICAL HISTORY : Hypertension. Congestive heart failure. Hypercholesterolemia. Glasses. COPD. Arthritis. Diabetes. Dep ression. Anxiety. SURGICAL HISTORY : CABG. Cholecystectomy. Hysterectomy. Thyroid nodule removed. Bilateral cataract surgery. Lens implant s. ENCOUNTER: Initial ACUITY: 2 days PAIN SCORE: Nonresponsive. LOCATION: Abdomen. MEASUREMENTS: LIVER: 18.9 cm length COMMON DUCT: 9 mm RIGHT KIDNEY: 10.3 x x 4.6 cm LEFT KIDNEY: 10.7 x 4.5 x 5.6 cm SPLEEN: 12.0 cm length AORTA: 1.7cm maximal FINDINGS: The liver and spleen are normal in size and no focal defects are identified. The gallbladder is surgi medardo absent. The visualized portion of the pancreas is unremarkable. The intrahepatic ducts and comm on bile duct are prominent which may reflect reservoir effect. The kidneys are normal bilaterally wit hout evidence of mass or hydronephrosis. No free fluid is identified. The visualized portion of the a kirby and inferior vena cava are unremarkable. CONCLUSION: 1. No evidence of acute abdominal process. No masses are identified. 2. Cholecystectomy Tommy Elizabeth MD on December 10, 2017 at 23:07 Board Certified Radiologist. This report was verified electronically.
[2017-12-11] VITALS (21 sets, daily range): BP systolic 105–141; BP diastolic 54–63; PULSE 71–113; RESP 15–32; TEMP 97.3–98.9; O2SAT 80–100
[2017-12-11] MEDS: RESP: ALBUTEROL 2.5 MG/IPRATROPIUM 0.5 MG NEB (SCH) NEB ×5 (03:07→20:53)
[2017-12-11] MEDS: INSULIN NovoLIN REGULAR SUPPLEMENTAL SCALE SQ SCH ×5 (03:30→21:34)
[2017-12-11] MEDS: SODIUM CHLOR 0.9% 1000 ML INJ 1,000 ML IV SCH (03:33)
[2017-12-11] MEDS: PIPERACIL-TAZO 2.25 GM PREMIX 50 ML IV SCH ×3 (04:57→18:46)
[2017-12-11 05:12] LABS: ALBUMIN 2.2 GM/DL (3.4-5.0); ALKALINE PHOSPHATASE 171 U/L (45-117); ALT (GPT) 81 U/L (10-53); AST (GOT) 118 U/L (15-37); BICARBONATE 21.5 MEQ/L (21.0-32.0); BLOOD UREA NITROGEN 74 MG/DL (7-18); CALCIUM 7.5 MG/DL (8.5-10.1); CHLORIDE 108 MEQ/L (98-107); CREATININE 3.88 MG/DL (0.50-1.00); GLOMERULAR FILTRATION RATE 11 ML/MIN (>89); GLUCOSE,RANDOM 203 MG/DL (74-106); RANDOM VANCOMYCIN 12.5 COMMENT; SODIUM (NA) 140 MEQ/L (136-145); TOTAL BILIRUBIN ADULT 0.8 MG/DL (0.2-1.0); TOTAL PROTEIN 5.5 GM/DL (6.4-8.2)
[2017-12-11 05:19] LABS: BASOPHIL % 0.4 % (0.0-2.0); EOSINOPHIL % 0.4 % (0.0-4.0); HEMATOCRIT 31.4 % (35.0-46.0); HEMOGLOBIN 10.3 GM/DL (11.6-15.3); LYMPH % 6.6 % (9.0-44.0); LYMPHOCYTE # 0.7 TH/MM3 (1.0-4.8); MEAN CELL VOLUME 77.6 FL (80.0-100.0); MEAN CORPUSCULAR HEMOGLOBIN 25.4 PG (27.0-34.0); MEAN CORPUSCULAR HGB CONC 32.7 % (32.0-36.0); MEAN PLATELET VOLUME 8.7 FL (7.0-11.0); MONO % 11.4 % (0.0-8.0); MONOCYTE # 1.3 TH/MM3 (0-0.9); NEUT % 81.2 % (16.0-70.0); PLATELET COUNT 318 TH/MM3 (150-450); RED BLOOD COUNT 4.05 MIL/MM3 (4.00-5.30); WHITE BLOOD COUNT 11.1 TH/MM3 (4.0-11.0)
--- NOTE | 2017-12-11 06:54 | HHI.CCPN ---
Subjective Remarks/Hospital Course Patient is an 82-year-old female with multiple comorbidities which include hypertension, diabetes mellitus, atrial fibrillation, COPD, CHF, coronary artery disease with previous CABG and a history of left foot osteomyelitis in 06/2017. She was admitted under Dr. Hightower service today for acute renal failure, UTI and altered mental status. The patient was initially admitted to the medical floor. A CT scan of the brain on arrival showed no evidence of any acute intracranial pathology. She also had a chest x-ray, which showed cardiomegaly, otherwise no acute pulmonary disease. Her laboratory data was significant for a leukocytosis with a WBC of 20.4, which resolved on repeat CBC at 11:30 this morning, where her WBC was 8.5. As the patient also had renal failure with a creatinine of 3.95, which worsened to 4.3 this afternoon. In the ED, she was given 500 mL of normal saline along with vancomycin and Zosyn. Due to altered mental status, ABG was performed, which showed a pH of 7.34, CO2 of 41, PaO2 of 62, bicarbonate 22, and saturation 88% on 3 liter oxygen. Her lactic acid level was 3.8, which improved to 2.5. She was transferred to [facility] for closer observation and critical care medicine was consulted for critical care management. Dr. Hightower spoke to the patient's daughter and she made her a No Code DNR. If there is no improvement in the next 48 hours, family is considering possible comfort care. 12/11 No events overnight. Patient is awake this morning renal function slowly improving with Cr: 3.88 from 4.09 last night. Afebrile. Objective Vital Signs Date Time Temp Pulse Resp B/P (MAP) Pulse Ox O2 Delivery O2 Flow Rate FiO2 12/11/17 06:00 81 12/11/17 04:00 98.7 20 130/56 (80) 99 12/11/17 03:07 21 12/10/17 23:16 Venturi Mask 6.00 Intake and Output 12/11/17 12/11/17 12/12/17 08:00 16:00 00:00 Output Total 380 ml Balance -380 ml Result Diagram: 12/11/17 0404 12/11/17 0404 Other Results Laboratory Tests Test 12/10/17 11:11 12/10/17 11:30 12/10/17 14:47 12/10/17 15:04 Lactic Acid Level 3.8 mmol/L 2.4 mmol/L White Blood Count 8.5 TH/MM3 Red Blood Count 4.27 MIL/MM3 Hemoglobin 10.9 GM/DL Hematocrit 32.9 % Mean Corpuscular Volume 77.0 FL Mean Corpuscular Hemoglobin 25.6 PG Mean Corpuscular Hemoglobin Concent 33.2 % Red Cell Distribution Width 16.9 % Platelet Count 378 TH/MM3 Mean Platelet Volume 8.8 FL Neutrophils (%) (Auto) 97.1 % Lymphocytes (%) (Auto) 1.5 % Monocytes (%) (Auto) 0.9 % Eosinophils (%) (Auto) 0.1 % Basophils (%) (Auto) 0.4 % Neutrophils # (Auto) 8.2 TH/MM3 Lymphocytes # (Auto) 0.1 TH/MM3 Monocytes # (Auto) 0.1 TH/MM3 Eosinophils # (Auto) 0.0 TH/MM3 Basophils # (Auto) 0.0 TH/MM3 CBC Comment DIFF FINAL Differential Comment Blood Urea Nitrogen 74 MG/DL Creatinine 4.17 MG/DL Random Glucose 288 MG/DL Total Protein 5.5 GM/DL Albumin 2.4 GM/DL Calcium Level 7.9 MG/DL Alkaline Phosphatase 263 U/L Aspartate Amino Transf (AST/SGOT) 107 U/L Alanine Aminotransferase (ALT/SGPT) 91 U/L Total Bilirubin 2.5 MG/DL Sodium Level 136 MEQ/L Potassium Level 4.5 MEQ/L Chloride Level 102 MEQ/L Carbon Dioxide Level 22.4 MEQ/L Anion Gap 12 MEQ/L Estimat Glomerular Filtration Rate 10 ML/MIN Blood Gas Puncture Site RT RADIAL Blood Gas Patient Temperature 98.6 Blood Gas HCO3 22 mmol/L Blood Gas Base Excess -3.3 mmol/L Blood Gas Oxygen Saturation 88 % Arterial Blood pH 7.34 Arterial Blood Partial Pressure CO2 41 mmHg Arterial Blood Partial Pressure O2 62 mmHg Arterial Blood Oxygen Content 13.7 Vol % Arterial Blood Carboxyhemoglobin 2.1 % Arterial Blood Methemoglobin 0.8 % Blood Gas Hemoglobin 11.0 G/DL Oxygen Delivery Device NASAL CANNULA Blood Gas Liter Flow 3 L/M Test 12/10/17 15:10 12/10/17 21:55 12/11/17 04:04 Blood Urea Nitrogen 76 MG/DL 72 MG/DL 74 MG/DL Creatinine 4.30 MG/DL 4.09 MG/DL 3.88 MG/DL Random Glucose 257 MG/DL 295 MG/DL 203 MG/DL Calcium Level 7.8 MG/DL 7.5 MG/DL 7.5 MG/DL Sodium Level 138 MEQ/L 137 MEQ/L 140 MEQ/L Potassium Level 4.4 MEQ/L 5.2 MEQ/L 3.9 MEQ/L Chloride Level 105 MEQ/L 107 MEQ/L 108 MEQ/L Carbon Dioxide Level 22.0 MEQ/L 19.9 MEQ/L 21.5 MEQ/L Anion Gap 11 MEQ/L 10 MEQ/L 11 MEQ/L Estimat Glomerular Filtration Rate 10 ML/MIN 10 ML/MIN 11 ML/MIN Ammonia 29 MCMOL/L Vitamin B12 Level GREATER THAN 2000 PG/ML Folate 19.0 NG/ML Free Thyroxine 1.24 NG/DL Thyroid Stimulating Hormone 3rd Gen 0.767 uIU/ML Digoxin Level 2.1 NG/ML Lactic Acid Level 2.4 mmol/L White Blood Count 11.1 TH/MM3 Red Blood Count 4.05 MIL/MM3 Hemoglobin 10.3 GM/DL Hematocrit 31.4 % Mean Corpuscular Volume 77.6 FL Mean Corpuscular Hemoglobin 25.4 PG Mean Corpuscular Hemoglobin Concent 32.7 % Red Cell Distribution Width 17.0 % Platelet Count 318 TH/MM3 Mean Platelet Volume 8.7 FL Neutrophils (%) (Auto) 81.2 % Lymphocytes (%) (Auto) 6.6 % Monocytes (%) (Auto) 11.4 % Eosinophils (%) (Auto) 0.4 % Basophils (%) (Auto) 0.4 % Neutrophils # (Auto) 9.0 TH/MM3 Lymphocytes # (Auto) 0.7 TH/MM3 Monocytes # (Auto) 1.3 TH/MM3 Eosinophils # (Auto) 0.0 TH/MM3 Basophils # (Auto) 0.0 TH/MM3 CBC Comment DIFF FINAL Differential Comment Total Protein 5.5 GM/DL Albumin 2.2 GM/DL Alkaline Phosphatase 171 U/L Aspartate Amino Transf (AST/SGOT) 118 U/L Alanine Aminotransferase (ALT/SGPT) 81 U/L Total Bilirubin 0.8 MG/DL Random Vancomycin Level 12.5 COMMENT Imaging Last Impressions Head CT 12/10/17 4282 Signed Impressions: Service Date/Time: Sunday, December 10, 2017 05:47 - CONCLUSION: 1. No evidence of acute intracranial pathology. No masses are identified. Tommy Elizabeth MD Chest X-Ray 12/10/17 0507 Signed Impressions: Service Date/Time: Sunday, December 10, 2017 05:35 - CONCLUSION: 1. Cardiomegaly. No acute pulmonary disease. Tommy Elizabeth MD Knee X-Ray 12/10/17 0000 Signed Impressions: Service Date/Time: Sunday, December 10, 2017 05:39 - CONCLUSION: 1. There is no evidence of acute fracture. Tommy Elizabeth MD Hip and Pelvis X-Ray 12/10/17 0000 Signed Impressions: Service Date/Time: Sunday, December 10, 2017 05:35 - CONCLUSION: 1. There is no evidence of acute fracture. 2. Possible lytic lesion in the greater trochanter. CT scan is recommended for further evaluation if clinically indicated. Tommy Elizabeth MD Abdomen Ultrasound 12/10/17 0000 Signed Impressions: Service Date/Time: Sunday, December 10, 2017 22:15 - CONCLUSION: 1. No evidence of acute abdominal process. No masses are identified. 2. Cholecystectomy Tommy Elizabeth MD Objective Remarks GENERAL: Patient is 82 yo lying in be din NAD SKIN: Warm and dry. HEAD: Normocephalic. EYES: No scleral icterus. No injection or drainage. NECK: Supple, trachea midline. No JVD or lymphadenopathy. CARDIOVASCULAR: Regular rate and rhythm without murmurs, gallops, or rubs. RESPIRATORY: Breath sounds equal bilaterally. No accessory muscle use. GASTROINTESTINAL: Abdomen soft, non-tender, nondistended. MUSCULOSKELETAL: No cyanosis, or edema. Neuro: Awake A/P Assessment and Plan 1. Respiratory insufficiency. 2. Encephalopathy multifactorial, likely metabolic secondary to renal failure and infection. -improving 3. Acute kidney injury. 4. Lactic acidemia. 5. Elevated liver enzymes. 6. Urinary tract infection. 7. Dehydration. 8. Anemia. 9. Atrial fibrillation, rate controlled. 10. Hyperglycemia with underlying history of diabetes mellitus. 11. History of hypertension. 12. History of CAD/CABG 13. Chronic obstructive pulmonary disease. Plan Neuro: Monitor neuro status closely and avoid any sedatives. CT brain showed no evidence of any acute pathology. Pulm: Continue with oxygen and maintain sats above 92%. Bronchodilators , Aspiration precautions. CV: Monitor HR and BP keep MAP>65 mmHg. Lactic acid 2.4 last night from 3.8 : Monitor renal function, I's and O's and avoid nephrotoxins. Renal function is improving with Cr: 3.88 from 4.09 US abdomen: no hydronephrosis, previous cholecystectomy Renal consulted- Dr. Chen. Continue with IV hydration- NS@125ml/hr GI: on Pepcid for GI prophylaxis. Monitor LFTs, check hepatitis profile US abdomen: no acute abdominal process Speech eval, diet per speech ID: Continue abx ( Zosyn, Vanco) Followup on blood and urine culture. CXR in ED: no acute cardiopulmonary disease. Heme: Monitor CBC and coags. Endo: medium SSI with Accu-Cheks for glycemic control. On Levemir 15uBID GI prophylaxis with Pepcid and DVT prophylaxis with SCDs and on Eliquis. CODE STATUS. No code DNR Level 2 Katherine Jean Baptiste MD Dec 11, 2017 06:54
[2017-12-11] MEDS ORDERED: PHARMACY ORDERED LAB ONE (07:00)
[2017-12-11] MEDS ORDERED: SODIUM CHLOR 0.9% 1000 ML INJ 1,000 ML IV SCH (07:00)
[2017-12-11] MEDS: FAMOTIDINE 20 MG/2 ML VIAL IV PUSH SCH (08:42)
[2017-12-11] MEDS: INSULIN DETEMIR 100 UNITS/ML VIAL SQ SCH ×3 (08:42→21:32)
[2017-12-11] MEDS: APIXABAN 5 MG TABLET PO SCH ×2 (08:42→21:31)
--- NOTE | 2017-12-11 08:52 | PD.CONS ---
HPI Service Nephrology Consult Requested By Reason for Consult Acute on chronic kidney disease Primary Care Physician Carlo Guidry M.D. History of Present Illness Ms. Dowd has been admitted with altered mental status. Apparently EMS found her down on the floor. CPK is not high. Baseline creatinine appears to be between 1.3 and 1.6. She was in acute renal failure. Not on pressors. Diagnosed with UTI with possible sepsis and ALEC. Has history of diabetes, atrial fibrillation, s/p CABG. Admitted to ICU. Patient 's daughter requested DNR. Past Family Social History Allergies: Coded Allergies: aspirin (Unverified Allergy, Severe, GI UPSET, 12/10/17) oxycodone (Verified Allergy, Unknown, Hallucinations, 12/10/17) Past Medical History Recent hospitalization for osteomyelitis -Osteoarthritis -Depression -Anxiety -Coronary artery disease, status post CABG -Hyperlipidemia -History of congestive heart failure -Diabetes -COPD Past Surgical History -Cholecystectomy -CABG - Right thyroid lobectomy - Cataract surgery - Hysterectomy Reported Medications Reported Meds & Active Scripts Active Reported Tresiba Flextouch Pen Inj (Insulin Degludec Inj) 600 unit/3 ML Pen 36 Units SQ DAILY Temazepam 30 Mg Cap 30 Mg PO HS PRN Spiriva Handihaler (Tiotropium Inh) 18 Mcg Cap 18 Mcg INH HS 1 capsule = 18 mcg Prednisone 5 Mg Tab 5 Mg PO DAILY Poly-Iron 150 (Polysaccharide Iron Complex) 150 Mg Iron Cap 150 Mg PO Q12HR Losartan (Losartan Potassium) 25 Mg Tab 25 Mg PO DAILY Ipratropium Neb (Ipratropium Lerna) 0.5 Mg/2.5 Ml Amp 0.5 Mg NEB Q12HR NEB Hydrocodone-Acetaminophen 7.5 Mg-325 Mg Tab 1 Tab PO TID Furosemide 20 Mg Tab 40 Mg PO DAILY Eliquis (Apixaban) 5 Mg Tab 5 Mg PO BID Duloxetine DR (Duloxetine HCl) 60 Mg Capdr 60 Mg PO DAILY Diltiazem ER 24 HR 240 Mg Azeem 240 Mg PO DAILY Digox (Digoxin) 0.125 Mg Tab 0.125 Mg PO DAILY Vitamin D-3 (Cholecalciferol) 1,000 Unit Cap 1,000 PO DAILY Atorvastatin (Atorvastatin Calcium) 20 Mg Tab 20 Mg PO HS Albuterol Neb (Albuterol Sulfate) 2.5 Mg/3 Ml Neb 2.5 Mg NEB QID NEB Active Ordered Medications Current Medications Medications (Trade) Dose Ordered Sig/Trish Route Start Time Stop Time Status Last Admin Piperacillin Sod/ Tazobactam Sod 50 ml @ 100 mls/hr Q6HR IV 12/10/17 12:00 12/11/17 04:57 (Duoneb Neb) 1 ampule Q4HR NEB NEB 12/10/17 20:00 12/11/17 08:05 (Duoneb Neb) 1 ampule Q2HR NEB PRN NEB 12/10/17 16:30 (D50w (Vial) Inj) 50 ml UNSCH PRN IV PUSH 12/10/17 16:30 (Glucagon Inj) 1 mg UNSCH PRN OTHER 12/10/17 16:30 (NovoLIN R SUPPLEMENTAL SCALE) 1 Q4HR SQ 12/10/17 20:00 12/11/17 03:30 (D50w (Vial) Inj) 50 ml UNSCH PRN IV PUSH 12/10/17 16:30 (Glucagon Inj) 1 mg UNSCH PRN OTHER 12/10/17 16:30 (Eliquis) 5 mg BID PO 12/10/17 21:00 (Spiriva Inh) 18 mcg HS INH 12/10/17 21:00 (Duoneb Neb) 1 ampule Q6HR NEB PRN NEB 12/10/17 16:30 Pharmacy Profile Note 0 ml @ 0 mls/hr UNSCH OTHER 12/10/17 16:30 (Lopressor Inj) 5 mg Q6H PRN IV PUSH 12/10/17 16:30 (Pepcid Inj) 10 mg Q12HR IV PUSH 12/10/17 21:00 12/10/17 20:46 (Levemir Inj) 15 units Q12HR SQ 12/11/17 09:00 Sodium Chloride 1,000 ml @ 75 mls/hr [id number] IV 12/11/17 07:00 Family History reviewed, non contributory Social History Apparently lives alone. No Tobacco or ETOH Physical Exam Vital Signs Vital Signs Date Time Temp Pulse Resp B/P (MAP) Pulse Ox O2 Delivery O2 Flow Rate FiO2 12/11/17 08:05 96 Nasal Cannula 2.00 12/11/17 06:00 81 12/11/17 04:00 98.7 83 20 130/56 (80) 99 12/11/17 04:00 83 12/11/17 03:07 95 21 12/11/17 02:00 71 12/11/17 00:00 81 12/11/17 00:00 97.3 81 24 114/59 (77) 100 12/10/17 23:16 92 Venturi Mask 6.00 50 12/10/17 22:00 61 12/10/17 20:00 70 12/10/17 20:00 97.5 70 18 128/63 (84) 98 12/10/17 19:49 100 Venturi Mask 6.00 50 12/10/17 19:00 100 Simple Mask 6.00 12/10/17 16:00 97.9 61 16 131/57 (81) 98 12/10/17 12:39 98.3 60 18 99/47 (64) 93 12/10/17 10:44 94 Nasal Cannula 2.00 12/10/17 09:45 101.1 67 18 110/51 (70) 94 12/10/17 09:09 Physical Exam GENERAL: patient is hard of hearing, opens eyes. Appears to follow some verbal cues. SKIN: Warm and dry. HEAD: Normocephalic. Mouth is dry. EYES: No scleral icterus. No injection or drainage. NECK: Supple, trachea midline. No JVD or lymphadenopathy. CARDIOVASCULAR: Regular rate and rhythm without murmurs, gallops, or rubs. RESPIRATORY: Breath sounds equal bilaterally. No accessory muscle use. GASTROINTESTINAL: Abdomen soft, non-tender, nondistended. MUSCULOSKELETAL: No cyanosis, or edema. Laboratory Laboratory Tests Test 12/10/17 11:11 12/10/17 11:30 12/10/17 14:47 12/10/17 15:04 Lactic Acid Level 3.8 2.4 White Blood Count 8.5 Red Blood Count 4.27 Hemoglobin 10.9 Hematocrit 32.9 Mean Corpuscular Volume 77.0 Mean Corpuscular Hemoglobin 25.6 Mean Corpuscular Hemoglobin Concent 33.2 Red Cell Distribution Width 16.9 Platelet Count 378 Mean Platelet Volume 8.8 Neutrophils (%) (Auto) 97.1 Lymphocytes (%) (Auto) 1.5 Monocytes (%) (Auto) 0.9 Eosinophils (%) (Auto) 0.1 Basophils (%) (Auto) 0.4 Neutrophils # (Auto) 8.2 Lymphocytes # (Auto) 0.1 Monocytes # (Auto) 0.1 Eosinophils # (Auto) 0.0 Basophils # (Auto) 0.0 CBC Comment DIFF FINAL Differential Comment Blood Urea Nitrogen 74 Creatinine 4.17 Random Glucose 288 Total Protein 5.5 Albumin 2.4 Calcium Level 7.9 Alkaline Phosphatase 263 Aspartate Amino Transf (AST/SGOT) 107 Alanine Aminotransferase (ALT/SGPT) 91 Total Bilirubin 2.5 Sodium Level 136 Potassium Level 4.5 Chloride Level 102 Carbon Dioxide Level 22.4 Anion Gap 12 Estimat Glomerular Filtration Rate 10 Blood Gas Puncture Site RT RADIAL Blood Gas Patient Temperature 98.6 Blood Gas HCO3 22 Blood Gas Base Excess -3.3 Blood Gas Oxygen Saturation 88 Arterial Blood pH 7.34 Arterial Blood Partial Pressure CO2 41 Arterial Blood Partial Pressure O2 62 Arterial Blood Oxygen Content 13.7 Arterial Blood Carboxyhemoglobin 2.1 Arterial Blood Methemoglobin 0.8 Blood Gas Hemoglobin 11.0 Oxygen Delivery Device NASAL CANNULA Blood Gas Liter Flow 3 Test 12/10/17 15:10 12/10/17 21:55 12/11/17 04:04 Blood Urea Nitrogen 76 72 74 Creatinine 4.30 4.09 3.88 Random Glucose 257 295 203 Calcium Level 7.8 7.5 7.5 Sodium Level 138 137 140 Potassium Level 4.4 5.2 3.9 Chloride Level 105 107 108 Carbon Dioxide Level 22.0 19.9 21.5 Anion Gap 11 10 11 Estimat Glomerular Filtration Rate 10 10 11 Ammonia 29 Vitamin B12 Level GREATER THAN 2000 Folate 19.0 Free Thyroxine 1.24 Thyroid Stimulating Hormone 3rd Gen 0.767 Digoxin Level 2.1 Lactic Acid Level 2.4 White Blood Count 11.1 Red Blood Count 4.05 Hemoglobin 10.3 Hematocrit 31.4 Mean Corpuscular Volume 77.6 Mean Corpuscular Hemoglobin 25.4 Mean Corpuscular Hemoglobin Concent 32.7 Red Cell Distribution Width 17.0 Platelet Count 318 Mean Platelet Volume 8.7 Neutrophils (%) (Auto) 81.2 Lymphocytes (%) (Auto) 6.6 Monocytes (%) (Auto) 11.4 Eosinophils (%) (Auto) 0.4 Basophils (%) (Auto) 0.4 Neutrophils # (Auto) 9.0 Lymphocytes # (Auto) 0.7 Monocytes # (Auto) 1.3 Eosinophils # (Auto) 0.0 Basophils # (Auto) 0.0 CBC Comment DIFF FINAL Differential Comment Total Protein 5.5 Albumin 2.2 Alkaline Phosphatase 171 Aspartate Amino Transf (AST/SGOT) 118 Alanine Aminotransferase (ALT/SGPT) 81 Total Bilirubin 0.8 Random Vancomycin Level 12.5 Date/Time Source Procedure Growth Status 12/10/17 11:30 Blood Peripheral Aerobic Blood Culture Pending Received 12/10/17 11:30 Blood Peripheral Anaerobic Blood Culture Pending Received 12/10/17 06:10 Urine Clean Catch Urine Culture Pending Received Result Diagram: 12/11/17 0404 12/11/17 0404 Assessment and Plan Problem List: (1) ARF (acute renal failure) ICD Codes: N17.9 - Acute kidney failure, unspecified Status: Acute Plan: Abdominal US did not reveal hydronephrosis. ALEC could be due to pre-renal azotemia, but could have progressed to ATN due to sepsis/infection. Continue supportive care. Avoid nephrotoxic agents. Dose medications appropriate to renal function. Agree with suspending Losartan, Digoxin. She does have proteinuria, will not quantify proteinuria at this time due to presence of infection. Continue antibiotic. Change IVF to 1/2NS to avoid hypernatremia. (2) UTI (urinary tract infection) ICD Codes: N39.0 - Urinary tract infection, site not specified Status: Acute Plan: Patient has been placed on Zosyn. (3) Diabetes ICD Codes: E11.9 - Type 2 diabetes mellitus without complications Status: Chronic Plan: patient is hyperglycemic, continue insulin coverage to maintain blood glucose between 140 and 180 while hospitalized. (4) Acute metabolic encephalopathy ICD Codes: G93.41 - Metabolic encephalopathy Status: Acute Plan: continue supportive care, monitor, treat infection. Assessment and Plan Thanks for the consult. Problem Qualifiers (1) ARF (acute renal failure): Qualified Codes: N17.9 - Acute kidney failure, unspecified (2) UTI (urinary tract infection): (3) Diabetes: Stiven Chen MD Dec 11, 2017 08:52
[2017-12-11] MEDS: SODIUM CHLOR 0.45% 1000 ML INJ 1,000 ML IV SCH (08:53)
[2017-12-11] MEDS ORDERED: DIGOXIN 0.125 MG TAB PO SCH (09:00)
[2017-12-11] MEDS ORDERED: DILTIAZEM-CD 240 MG CAP ER PO SCH (09:00)
[2017-12-11] MEDS ORDERED: LOSARTAN 25 MG TAB PO SCH (09:00)
[2017-12-11] MEDS ORDERED: VANCOMYCIN INJ 1,000 MG in SODIUM CHLOR 0.9% 250 ML INJ 250 ML IV ONE (13:00)
--- NOTE | 2017-12-11 19:17 | MG ---
cc: Silverio Martinez MD An 82-year-old with some confusion. A 1-3 Hz delta activity with admixed theta frequencies 4-6 Hz, 10-40 microvolts transitioning to more of a stage. Formation of mild spindle activity. Good EEG variability and reactivity. Limited driving with photic stimulation. Single lead EKG showing sinus rhythm with premature contractions. INTERPRETATION: Mild encephalopathy in sleep state. Clinical correlation. Silverio Martinez MD MG/SB , 07:04 PM , 07:15 PM MTDD
[2017-12-11] MEDS: TIOTROPIUM BROMIDE 18 MCG INH INH SCH (21:32)
[2017-12-12] VITALS (18 sets, daily range): BP systolic 91–157; BP diastolic 57–90; PULSE 91–122; RESP 20–35; TEMP 97.7–99.2; O2SAT 95–100
[2017-12-12] MEDS: SODIUM CHLOR 0.45% 1000 ML INJ 1,000 ML IV SCH ×2 (00:19→15:46)
[2017-12-12] MEDS: INSULIN NovoLIN REGULAR SUPPLEMENTAL SCALE SQ SCH ×6 (00:20→20:00)
[2017-12-12] MEDS: PIPERACIL-TAZO 2.25 GM PREMIX 50 ML IV SCH ×4 (00:20→17:20)
[2017-12-12] MEDS: RESP: ALBUTEROL 2.5 MG/IPRATROPIUM 0.5 MG NEB (SCH) NEB ×6 (00:35→19:26)
[2017-12-12 06:54] LABS: AUTOMATED NEUTROPHIL # 5.9 TH/MM3 (1.8-7.7); BASOPHIL % 0.4 % (0.0-2.0); EOSINOPHIL # 0.1 TH/MM3 (0-0.4); EOSINOPHIL % 1.4 % (0.0-4.0); HEMATOCRIT 28.7 % (35.0-46.0); HEMOGLOBIN 9.8 GM/DL (11.6-15.3); LYMPH % 5.2 % (9.0-44.0); LYMPHOCYTE # 0.4 TH/MM3 (1.0-4.8); MEAN CELL VOLUME 76.3 FL (80.0-100.0); MEAN CORPUSCULAR HEMOGLOBIN 25.9 PG (27.0-34.0); MEAN PLATELET VOLUME 8.7 FL (7.0-11.0); MONO % 16.2 % (0.0-8.0); MONOCYTE # 1.2 TH/MM3 (0-0.9); NEUT % 76.8 % (16.0-70.0); PLATELET COUNT 279 TH/MM3 (150-450); RED BLOOD COUNT 3.77 MIL/MM3 (4.00-5.30); RED CELL DISTRIBUTION WIDTH 17.4 % (11.6-17.2); WHITE BLOOD COUNT 7.7 TH/MM3 (4.0-11.0)
[2017-12-12 07:16] LABS: ALBUMIN 2.1 GM/DL (3.4-5.0); ALT (GPT) 71 U/L (10-53); AST (GOT) 92 U/L (15-37); BICARBONATE 23.2 MEQ/L (21.0-32.0); BLOOD UREA NITROGEN 55 MG/DL (7-18); CALCIUM 7.6 MG/DL (8.5-10.1); CHLORIDE 111 MEQ/L (98-107); CREATININE 2.54 MG/DL (0.50-1.00); GLOMERULAR FILTRATION RATE 18 ML/MIN (>89); GLUCOSE,RANDOM 98 MG/DL (74-106); SODIUM (NA) 143 MEQ/L (136-145)
[2017-12-12 07:28] LABS: ALKALINE PHOSPHATASE 164 U/L (45-117); RANDOM VANCOMYCIN 16.2 COMMENT; TOTAL BILIRUBIN ADULT 0.6 MG/DL (0.2-1.0); TOTAL PROTEIN 5.5 GM/DL (6.4-8.2)
--- NOTE | 2017-12-12 08:31 | RADRPT ---
EXAM DATE/TIME: 12/12/2017 08:08 [place] COMPARISON: No previous studies available for comparison. INDICATIONS : Vomitting. MEDICAL HISTORY : Hypertension. Congestive heart failure. Hypercholesterolemia. Glasses. COPD.Arthritis. Diabetes. Depr ession. Anxiety. SURGICAL HISTORY : CABG. Cholecystectomy. Hysterectomy. Thyroid nodule removed. Bilateral cataract surgery. ENCOUNTER: Initial ACUITY: 1 day PAIN SCORE: Non-responsive. LOCATION: Bilateral abdomen. FINDINGS: Supine view of the abdomen was performed. Gaseous distention of scattered bowel loops. No definite ob struction. A No abnormal masses, calcifications, or organomegaly is seen. The osseous structures are unremarkable. CONCLUSION: Gaseous distention of bowel loops without obstruction. Marino Melgar MD on December 12, 2017 at 8:24 Board Certified Radiologist. This report was verified electronically.
[2017-12-12] MEDS ORDERED: ONDANSETRON HCL 4 MG/2 ML VIAL ONE (08:49)
[2017-12-12] MEDS ORDERED: ONDANSETRON HCL 4 MG/2 ML VIAL IV PUSH ONE (09:00)
[2017-12-12] MEDS: INSULIN DETEMIR 100 UNITS/ML VIAL SQ SCH ×2 (09:00→21:00)
--- NOTE | 2017-12-12 09:02 | HHI.NPPN ---
Subjective Interval History patient's renal function has improved. She has developed nausea and vomiting today. She is hard of hearing. Objective Data Data Vital Signs Date Time Temp Pulse Resp B/P (MAP) Pulse Ox O2 Delivery O2 Flow Rate FiO2 12/12/17 06:00 122 12/12/17 05:00 122 24 157/70 (99) 100 12/12/17 04:00 120 24 91/60 (70) 100 12/12/17 04:00 120 12/12/17 04:00 99.2 120 24 91/60 (70) 100 12/12/17 02:00 103 24 134/90 (105) 100 12/12/17 02:00 103 12/12/17 00:00 103 12/12/17 00:00 98.9 103 24 133/71 (91) 100 12/11/17 22:00 113 12/11/17 22:00 113 22 123/63 (83) 99 12/11/17 20:51 100 21 12/11/17 20:00 98.3 99 22 141/62 (88) 99 12/11/17 20:00 99 12/11/17 19:00 104 12/11/17 18:00 110 12/11/17 16:00 98.9 105 23 132/62 (85) 80 12/11/17 16:00 105 12/11/17 14:00 87 15 114/58 (76) 86 12/11/17 14:00 87 12/11/17 13:01 87 30 122/57 (78) 12/11/17 13:01 87 12/11/17 13:00 89 12/11/17 13:00 89 25 112/56 (74) 12/11/17 12:01 98.1 94 19 112/56 (74) 100 12/11/17 12:01 94 12/11/17 12:00 92 21 100 12/11/17 12:00 92 12/11/17 10:00 80 20 105/54 (71) 99 12/11/17 10:00 80 12/11/17 09:02 86 15 112/56 (74) 100 12/11/17 09:02 86 -: 12/12/17 0556 12/12/17 0556 Physical Exam General Appearance: Well Developed Eyes Eye Exam: Pupils Equal Neck Neck Exam: Neck Supple Pulmonary Resp Exam: Rhonchi Cardiology CV Exam: Regular Gastrointestinal/Abdomen GI Exam: Soft, Non-Tender, Distended Musculoskeletal MS Exam: Joints Intact Extremeties Extremities Exam: No Edema Neurologic Neuro Exam: Awake, Moving All Extremities Assessment/Plan Problem List: (1) ARF (acute renal failure) ICD Codes: N17.9 - Acute kidney failure, unspecified Status: Acute Plan: Abdominal US did not reveal hydronephrosis. ALEC could be due to pre-renal azotemia, but could have progressed to ATN due to sepsis/infection. Renal function has improved. Continue supportive care. Avoid nephrotoxic agents. Dose medications appropriate to renal function. Agree with suspending Losartan, Digoxin. She does have proteinuria, will not quantify proteinuria at this time due to presence of infection. Continue antibiotic. Changed IVF to 1/2NS to avoid hypernatremia continue for another 24 hours. (2) UTI (urinary tract infection) ICD Codes: N39.0 - Urinary tract infection, site not specified Status: Acute Plan: Patient has been placed on Zosyn. (3) Diabetes ICD Codes: E11.9 - Type 2 diabetes mellitus without complications Status: Chronic Plan: patient is hyperglycemic, continue insulin coverage to maintain blood glucose between 140 and 180 while hospitalized. (4) Acute metabolic encephalopathy ICD Codes: G93.41 - Metabolic encephalopathy Status: Acute Plan: continue supportive care, monitor, treat infection. Problem Qualifiers (1) ARF (acute renal failure): Qualified Codes: N17.9 - Acute kidney failure, unspecified (2) UTI (urinary tract infection): (3) Diabetes: Stiven Chen MD Dec 12, 2017 09:02
--- NOTE | 2017-12-12 09:53 | EKG ---
Date Performed: 12/10/2017 Time Performed: 14:51:24 PTAGE: 82 years EKG: Atrial fibrillation with a slow ventricular response Leftward axis Inferior infarct - age u ndetermined Possible anterior infarct - age undetermined Lateral ST-T changes may be due to myocardia l ischemia Abnormal ECG PREVIOUS TRACING 11/30/17 Since the previous tracing, no significant change noted. DOCTOR: Tommy Alberts Interpretating Date/Time 12/12/2017 09:52:50
--- NOTE | 2017-12-12 12:26 | HHI.PR ---
Subjective Remarks pt more alert and interactive. seems a little confused. Objective Vitals lying in bed restrained heart reg lung cta abd bs/nt ext no edema Vital Signs Date Time Temp Pulse Resp B/P (MAP) Pulse Ox O2 Delivery O2 Flow Rate FiO2 12/12/17 06:00 122 12/12/17 05:00 122 24 157/70 (99) 100 12/12/17 04:00 120 24 91/60 (70) 100 12/12/17 04:00 120 12/12/17 04:00 99.2 120 24 91/60 (70) 100 12/12/17 02:00 103 24 134/90 (105) 100 12/12/17 02:00 103 12/12/17 00:00 103 12/12/17 00:00 98.9 103 24 133/71 (91) 100 12/11/17 22:00 113 12/11/17 22:00 113 22 123/63 (83) 99 12/11/17 20:51 100 21 12/11/17 20:00 98.3 99 22 141/62 (88) 99 12/11/17 20:00 99 12/11/17 19:00 104 12/11/17 18:00 110 12/11/17 16:00 98.9 105 23 132/62 (85) 80 12/11/17 16:00 105 12/11/17 14:00 87 15 114/58 (76) 86 12/11/17 14:00 87 12/11/17 13:01 87 30 122/57 (78) 12/11/17 13:01 87 12/11/17 13:00 89 12/11/17 13:00 89 25 112/56 (74) Result Diagram: 12/12/17 0556 12/12/17 0556 Imaging Last Impressions Head CT 12/10/177 Signed Impressions: Service Date/Time: Sunday, December 10, 2017 05:47 - CONCLUSION: 1. No evidence of acute intracranial pathology. No masses are identified. Tommy Elizabeth MD Chest X-Ray 12/10/17 0507 Signed Impressions: Service Date/Time: Sunday, December 10, 2017 05:35 - CONCLUSION: 1. Cardiomegaly. No acute pulmonary disease. Tommy Elizabeth MD Knee X-Ray 12/10/17 0000 Signed Impressions: Service Date/Time: Sunday, December 10, 2017 05:39 - CONCLUSION: 1. There is no evidence of acute fracture. Tommy Elizabeth MD Hip and Pelvis X-Ray 12/10/17 0000 Signed Impressions: Service Date/Time: Sunday, December 10, 2017 05:35 - CONCLUSION: 1. There is no evidence of acute fracture. 2. Possible lytic lesion in the greater trochanter. CT scan is recommended for further evaluation if clinically indicated. Tommy Elizabeth MD A/P Problem List: (1) Acute metabolic encephalopathy ICD Codes: G93.41 - Metabolic encephalopathy Status: Acute Plan: -Patient was hospitalized June 2017 due to osteomyelitis -Family reports that patient has had more difficulty with ADLs in the last several months due to arthritis -Patient recently saw her primary care physician for complaints of arthritis and was prescribed gabapentin and prednisone -Patient was brought to [place] by EMS. Patient was on the floor of her apartment and banging on the floor to get to help. -In the ER, patient was found to have goldy due to dehydration and now probably ATN -questionable uti. now cx looks contaminated -Patient received IV vancomycin and Zosyn. - Also IV fluids -Patient found to be obtunded by nursing staff -CT brain obtained in the ER (12/10/17) showed no acute abnormalities --Case discussed at length with patient's daughter, Ms. sullivan. She requested DNR CODE STATUS will call daughter transfer out of ICU advance diet as tolerated cont ivf renal following and cr slowly imrproving cont PT dvt prophylaxis renal dose meds and holding contraindicated meds. cont basal/bolus insulin de escalate abx. (2) ARF (acute renal failure) ICD Codes: N17.9 - Acute kidney failure, unspecified Status: Acute Plan: - see above - IVF - repeat BMP in AM (3) Diabetes ICD Codes: E11.9 - Type 2 diabetes mellitus without complications Status: Chronic Plan: basal.bolus insulin (4) CAD (coronary artery disease) ICD Codes: I25.10 - Atherosclerotic heart disease of [place] coronary artery without angina pectoris Status: Chronic Problem Qualifiers (1) ARF (acute renal failure): Qualified Codes: N17.9 - Acute kidney failure, unspecified (2) Diabetes: Juan Bello MD Dec 12, 2017 12:26
[2017-12-12] MEDS ORDERED: BISACODYL 10 MG SUPP RECTAL ONE (13:00)
[2017-12-12] MEDS: APIXABAN 5 MG TABLET PO SCH ×2 (15:45→21:00)
[2017-12-12] MEDS: FAMOTIDINE 20 MG TAB PO SCH (15:45)
[2017-12-12] MEDS ORDERED: DILTIAZEM-CD 240 MG CAP ER PO ONE (16:30)
[2017-12-12 18:22] LABS: AMORPHOUS SEDIMENT, URINE RARE; BILIRUBIN, URINE NEG (NEG); BLOOD, URINE LARGE (NEG); CALCIUM OXALATE CRYSTALS,URINE OCC /hpf; GLUCOSE,URINE NEG (NEG); KETONE, URINE NEG (NEG); NITRITE,URINE NEG (NEG); PH, URINE 5.5 (5.0-8.5); SQUAMOUS EPITHELIAL CELL URINE <1 /hpf (0-5); URINE COLOR YELLOW (YELLW/STRAW); URINE LEUKOCYTE ESTERASE LARGE (NEG); WHITE BLOOD CELL CLUMPS FEW
[2017-12-12] MEDS: DOCUSATE SODIUM 50 MG/SENNA 8.6 MG TAB PO SCH (20:45)
[2017-12-12] MEDS: TIOTROPIUM BROMIDE 18 MCG INH INH SCH (21:00)
[2017-12-13] VITALS (9 sets, daily range): BP systolic 138–171; BP diastolic 63–77; PULSE 77–119; RESP 20; TEMP 98.5–100.9; O2SAT 94–98
[2017-12-13] MEDS: RESP: ALBUTEROL 2.5 MG/IPRATROPIUM 0.5 MG NEB (SCH) NEB ×7 (00:18→23:32)
[2017-12-13] MEDS: PIPERACIL-TAZO 2.25 GM PREMIX 50 ML IV SCH ×2 (01:33→05:20)
[2017-12-13] MEDS: INSULIN NovoLIN REGULAR SUPPLEMENTAL SCALE SQ SCH ×6 (04:00→21:00)
[2017-12-13] MEDS: SODIUM CHLOR 0.45% 1000 ML INJ 1,000 ML IV SCH ×2 (05:20→21:25)
[2017-12-13 07:43] LABS: AUTOMATED NEUTROPHIL # 11.5 TH/MM3 (1.8-7.7); BASOPHIL % 0.2 % (0.0-2.0); EOSINOPHIL % 0.3 % (0.0-4.0); HEMATOCRIT 29.6 % (35.0-46.0); HEMOGLOBIN 9.9 GM/DL (11.6-15.3); LYMPH % 3.5 % (9.0-44.0); LYMPHOCYTE # 0.5 TH/MM3 (1.0-4.8); MEAN CORPUSCULAR HEMOGLOBIN 25.6 PG (27.0-34.0); MEAN CORPUSCULAR HGB CONC 33.6 % (32.0-36.0); MEAN PLATELET VOLUME 8.4 FL (7.0-11.0); MONO % 13.3 % (0.0-8.0); MONOCYTE # 1.9 TH/MM3 (0-0.9); NEUT % 82.7 % (16.0-70.0); PLATELET COUNT 286 TH/MM3 (150-450); RED BLOOD COUNT 3.89 MIL/MM3 (4.00-5.30); RED CELL DISTRIBUTION WIDTH 17.2 % (11.6-17.2); WHITE BLOOD COUNT 13.9 TH/MM3 (4.0-11.0)
[2017-12-13 07:58] LABS: BICARBONATE 20.8 MEQ/L (21.0-32.0); CALCIUM 7.7 MG/DL (8.5-10.1); CREATININE 2.22 MG/DL (0.50-1.00)
[2017-12-13] MEDS: APIXABAN 5 MG TABLET PO SCH ×2 (09:12→21:32)
[2017-12-13] MEDS: DILTIAZEM-CD 240 MG CAP ER PO SCH (09:12)
[2017-12-13] MEDS: DOCUSATE SODIUM 50 MG/SENNA 8.6 MG TAB PO SCH ×2 (09:12→21:00)
[2017-12-13] MEDS: FAMOTIDINE 20 MG TAB PO SCH (09:12)
[2017-12-13] MEDS: INSULIN DETEMIR 100 UNITS/ML VIAL SQ SCH ×2 (09:12→21:32)
--- NOTE | 2017-12-13 09:54 | RADRPT ---
EXAM DATE/TIME: 12/13/2017 08:47 [facility] COMPARISON: ABDOMEN KUB ONLY, December 12, 2017, 8:08. INDICATIONS : Distention. MEDICAL HISTORY : None. SURGICAL HISTORY : None. ENCOUNTER: Subsequent ACUITY: 4 - 6 days PAIN SCORE: Non-responsive. LOCATION: Abdomen. FINDINGS: Supine view of the abdomen was performed. Gaseous distention of the stomach. The abdominal bowel gas pattern is normal. No abnormal masses, calcifications, or organomegaly is seen. The osseous struct ures are unremarkable. Elevation right hemidiaphragm. CONCLUSION: 1. Gaseous distention of the stomach. Marino Melgar MD on December 13, 2017 at 9:51 Board Certified Radiologist. This report was verified electronically.
[2017-12-13] MEDS ORDERED: ONDANSETRON HCL 4 MG/2 ML VIAL IV PUSH PRN (10:15)
--- NOTE | 2017-12-13 10:21 | HHI.PR ---
Subjective Remarks vomited immediately after swallowing medications reported bm's yesterday after supp. daughter at bedside. Objective Vitals lying in bed vomited heart reg lung cta abd bs/nd/no rebound ext no edema Vital Signs Date Time Temp Pulse Resp B/P (MAP) Pulse Ox O2 Delivery O2 Flow Rate FiO2 12/13/17 08:00 99.9 108 20 152/69 (96) 96 12/13/17 04:00 99.8 119 20 138/63 (88) 98 12/13/17 03:44 104 12/13/17 00:00 98.6 109 20 139/63 (88) 95 12/12/17 23:46 116 12/12/17 20:29 97.7 113 20 148/65 (92) 95 12/12/17 20:00 Room Air 12/12/17 19:42 118 12/12/17 19:29 96 12/12/17 17:15 Room Air 12/12/17 17:00 97.8 91 21 122/58 (79) 95 12/12/17 16:07 97 12/12/17 16:00 101 12/12/17 16:00 101 25 117/58 (77) 99 12/12/17 12:00 115 12/12/17 12:00 111 26 137/84 (101) 12/12/17 11:00 113 35 116/57 (76) 12/12/17 11:00 113 Result Diagram: 12/13/17 0652 12/13/17 0652 Imaging Last Impressions Head CT 12/10/17 0507 Signed Impressions: Service Date/Time: Sunday, December 10, 2017 05:47 - CONCLUSION: 1. No evidence of acute intracranial pathology. No masses are identified. Tommy Elizabeth MD Chest X-Ray 12/10/17 0507 Signed Impressions: Service Date/Time: Sunday, December 10, 2017 05:35 - CONCLUSION: 1. Cardiomegaly. No acute pulmonary disease. Tommy Elizabeth MD Knee X-Ray 12/10/17 0000 Signed Impressions: Service Date/Time: Sunday, December 10, 2017 05:39 - CONCLUSION: 1. There is no evidence of acute fracture. Tommy Elizabeth MD Hip and Pelvis X-Ray 12/10/17 0000 Signed Impressions: Service Date/Time: Sunday, December 10, 2017 05:35 - CONCLUSION: 1. There is no evidence of acute fracture. 2. Possible lytic lesion in the greater trochanter. CT scan is recommended for further evaluation if clinically indicated. Tommy Elizabeth MD A/P Problem List: (1) Acute metabolic encephalopathy ICD Codes: G93.41 - Metabolic encephalopathy Status: Acute Plan: -Patient was hospitalized June 2017 due to osteomyelitis -Family reports that patient has had more difficulty with ADLs in the last several months due to arthritis -Patient recently saw her primary care physician for complaints of arthritis and was prescribed gabapentin and prednisone -Patient was brought to [place] by EMS. Patient was on the floor of her apartment and banging on the floor to get to help. -In the ER, patient was found to have goldy due to dehydration and now probably ATN -questionable uti. now cx looks contaminated -Patient received IV vancomycin and Zosyn. - Also IV fluids -Patient found to be obtunded by nursing staff -CT brain obtained in the ER (12/10/17) showed no acute abnormalities --Case discussed at length with patient's daughter, Ms. sullivan. She requested DNR CODE STATUS acute kidney injury. dehydration and possible atn..slowly improving concern for uti. cx's ngtd metabolic encephalopathy...slightly improved constipation and gaseous distention of stomach. related to medication/acute illness. vomited multiple times. lft trending down. monitor. left greater trochanter. possible lytic lesion. spoke with daughter. pt has had pain in this area. consider CT eval. updated daughter yesterday and today at bedside cont ivf. mod diet. laxatives. add simethicone. ppi. reglan. repeat kub d/c abx and observe renal following and cr slowly imrproving cont PT dvt prophylaxis renal dose meds and holding contraindicated meds. cont basal/bolus insulin (2) ARF (acute renal failure) ICD Codes: N17.9 - Acute kidney failure, unspecified Status: Acute Plan: - see above - IVF - repeat BMP in AM (3) Diabetes ICD Codes: E11.9 - Type 2 diabetes mellitus without complications Status: Chronic Plan: basal.bolus insulin (4) CAD (coronary artery disease) ICD Codes: I25.10 - Atherosclerotic heart disease of [place] coronary artery without angina pectoris Status: Chronic Problem Qualifiers (1) ARF (acute renal failure): Qualified Codes: N17.9 - Acute kidney failure, unspecified (2) Diabetes: Juan Bello MD Dec 13, 2017 10:21
[2017-12-13] MEDS ORDERED: BISACODYL EC 5 MG TABEC PO PRN (10:30)
[2017-12-13] MEDS ORDERED: BISACODYL EC 5 MG TABEC PO ONE (10:30)
[2017-12-13] MEDS ORDERED: DILTIAZEM-CD 240 MG CAP ER PO ONE (11:30)
[2017-12-13] MEDS ORDERED: ONDANSETRON HCL 4 MG/2 ML VIAL IV PUSH ONE (12:00)
[2017-12-13] MEDS ORDERED: PANTOPRAZOLE SODIUM 40 MG VIAL IV PUSH ONE (12:00)
[2017-12-13] MEDS: METOPROLOL TARTRATE 25 MG TAB PO SCH ×2 (12:37→21:32)
[2017-12-13] MEDS: SIMETHICONE 125 MG CHEWABLE TAB PO SCH ×2 (12:37→21:36)
[2017-12-13] MEDS: METOCLOPRAMIDE HCL 10 MG/2 ML VIAL IV PUSH SCH ×2 (12:41→21:33)
--- NOTE | 2017-12-13 13:03 | HHI.NPPN ---
Subjective Renal Failure: Acute Interval History She has low grade fever today. Reporting thirst. On IVF. Renal function is better. (Alexandra Pierson) Review of Systems Endocrine Endocrine: Thirst (Alexandra Pierson) Objective Data Data Vital Signs Date Time Temp Pulse Resp B/P (MAP) Pulse Ox O2 Delivery O2 Flow Rate FiO2 12/13/17 08:00 Room Air 12/13/17 08:00 99.9 108 20 152/69 (96) 96 12/13/17 04:00 99.8 119 20 138/63 (88) 98 12/13/17 03:44 104 12/13/17 00:00 98.6 109 20 139/63 (88) 95 12/12/17 23:46 116 12/12/17 20:29 97.7 113 20 148/65 (92) 95 12/12/17 20:00 Room Air 12/12/17 19:42 118 12/12/17 19:29 96 12/12/17 17:15 Room Air 12/12/17 17:00 97.8 91 21 122/58 (79) 95 12/12/17 16:07 97 12/12/17 16:00 101 12/12/17 16:00 101 25 117/58 (77) 99 (Alexandra Pierson) -: 12/13/17 0652 12/13/17 0652 Microbiology 12/12/17 Urine Culture, Received Pending Imaging Last 72 hours Impressions Abdomen X-Ray 12/13/17 0600 Signed Impressions: Service Date/Time: Wednesday, December 13, 2017 08:47 - CONCLUSION: 1. Gaseous distention of the stomach. Marino Melgar MD Abdomen X-Ray 12/12/17 0000 Signed Impressions: Service Date/Time: Tuesday, December 12, 2017 08:08 - CONCLUSION: Gaseous distention of bowel loops without obstruction. Marino Melgar MD Tubes & Lines: Fernando (Alexandra Pierson) Physical Exam General Appearance: Well Developed, Comfortable, Obese (Alexandra Pierson) Eyes Eye Exam: Pupils Equal (Alexandra Pierson) Neck Neck Exam: Neck Supple (Alexandra Pierson) Pulmonary Resp Exam: Breath Sounds Equal, No Distress, Rhonchi (Alexandra Pierson) Cardiology CV Exam: Regular, Normal Sinus Rhythm (Alexandra Pierson) Gastrointestinal/Abdomen GI Exam: Soft, Non-Tender, Distended (Alexandra Pierson) Musculoskeletal MS Exam: Normal Tone, Good Strength, Unable to Ambulate (Alexandra Pierson) Integumentary Skin Exam: Warm, Dry, Intact (Alexandra Pierson) Extremeties Extremities Exam: No Edema, Pedal Pulses Palpable (Alexandra Pierson) Neurologic Neuro Exam: Awake, Moving All Extremities (Alexandra Pierson) Psychiatric Psych Exam: Appropriate Responses (Alexandra Pierson) Assessment/Plan Discussed Condition With: Patient Assessment Summary: ALEC/Acute Renal Failure Problem List: (1) ARF (acute renal failure) ICD Codes: N17.9 - Acute kidney failure, unspecified Status: Acute Plan: ALEC could be due to pre-renal azotemia or UTI; but could have progressed to ATN due to sepsis/infection. Renal function is improving She is non oliguric Continue IVF, encourage oral fluids. Avoid nephrotoxic agents. Dose medications appropriate to renal function. Continue treatment for UTI. repeat labs tomorrow. (2) UTI (urinary tract infection) ICD Codes: N39.0 - Urinary tract infection, site not specified Status: Acute Plan: On Zosyn, continue supportive care (3) Diabetes ICD Codes: E11.9 - Type 2 diabetes mellitus without complications Status: Chronic Plan: continue insulin coverage to maintain blood glucose between 140 and 180 while hospitalized. (4) Acute metabolic encephalopathy ICD Codes: G93.41 - Metabolic encephalopathy Status: Acute Plan: improving continue supportive care, monitor, treat infection. (Alexadnra Pierson) Plan patient was seen and examined. Agree with above assessment and plan. (Stiven Chen MD) Problem Qualifiers (1) ARF (acute renal failure): Qualified Codes: N17.9 - Acute kidney failure, unspecified (2) UTI (urinary tract infection): (3) Diabetes: Alexandra Pierson Dec 13, 2017 13:03 Stiven Chen MD Dec 14, 2017 09:14
[2017-12-13] MEDS ORDERED: LEVOFLOXACIN 250 MG TAB PO ONE (13:45)
[2017-12-13] MEDS: TIOTROPIUM BROMIDE 18 MCG INH INH SCH (21:00)
[2017-12-14] VITALS (10 sets, daily range): BP systolic 122–146; BP diastolic 55–64; PULSE 75–102; RESP 16–20; TEMP 98–99.4; O2SAT 94–98
[2017-12-14] MEDS: RESP: ALBUTEROL 2.5 MG/IPRATROPIUM 0.5 MG NEB (SCH) NEB ×5 (03:38→20:23)
[2017-12-14] MEDS: METOCLOPRAMIDE HCL 10 MG/2 ML VIAL IV PUSH SCH ×3 (06:00→22:14)
[2017-12-14] MEDS: SIMETHICONE 125 MG CHEWABLE TAB PO SCH ×3 (06:00→22:14)
--- NOTE | 2017-12-14 07:11 | RADRPT ---
EXAM DATE/TIME: 12/14/2017 06:11 [facility] COMPARISON: ABDOMEN KUB ONLY, December 13, 2017, 8:47. INDICATIONS : Vomiting. MEDICAL HISTORY : Hypertension. Diabetes mellitus type II. SURGICAL HISTORY : None. ENCOUNTER: Subsequent ACUITY: 3 days PAIN SCORE: Non-responsive. LOCATION: Bilateral abdomen FINDINGS: Supine view of the abdomen was performed. There is a nonobstructive bowel gas pattern present. There is air distending the stomach and a moderate amount of air identified within the transverse colon.. No abnormal masses, calcifications, or organomegaly is seen. The osseous structures are significant for degenerative changes within the lower lumbar spine. CONCLUSION: No evidence of bowel obstruction. Bernie Ponce MD on December 14, 2017 at 7:08 Board Certified Radiologist. This report was verified electronically.
[2017-12-14] MEDS: INSULIN NovoLIN REGULAR SUPPLEMENTAL SCALE SQ SCH ×4 (08:00→21:00)
[2017-12-14] MEDS: DILTIAZEM-CD 240 MG CAP ER PO SCH (08:28)
[2017-12-14] MEDS: PANTOPRAZOLE SOD 40 MG DELAYED RELEASE TAB PO SCH (08:28)
[2017-12-14] MEDS: LEVOFLOXACIN 250 MG TAB PO SCH (08:28)
[2017-12-14] MEDS: METOPROLOL TARTRATE 25 MG TAB PO SCH ×2 (08:28→22:15)
[2017-12-14] MEDS: APIXABAN 5 MG TABLET PO SCH ×2 (08:28→22:15)
[2017-12-14] MEDS: INSULIN DETEMIR 100 UNITS/ML VIAL SQ SCH ×2 (08:29→22:15)
[2017-12-14] MEDS: DOCUSATE SODIUM 50 MG/SENNA 8.6 MG TAB PO SCH ×2 (08:29→21:00)
--- NOTE | 2017-12-14 09:37 | HHI.PR ---
Subjective Remarks more oriented having bm's now. liquid Objective Vitals mostly oriented cooperative heart reg lung good air entry abd s/nt/bs ext no edema Vital Signs Date Time Temp Pulse Resp B/P (MAP) Pulse Ox O2 Delivery O2 Flow Rate FiO2 12/14/17 04:00 Room Air 12/14/17 04:00 98.8 88 20 140/63 (88) 94 12/14/17 03:39 88 12/14/17 00:00 Room Air 12/14/17 00:00 99.4 98 20 146/55 (85) 97 12/13/17 23:42 94 12/13/17 20:00 Room Air 12/13/17 20:00 100.9 77 20 169/74 (105) 94 12/13/17 19:44 102 12/13/17 16:00 98.5 84 20 156/77 (103) 96 12/13/17 16:00 83 12/13/17 12:00 100.4 116 20 171/76 (107) 97 Result Diagram: 12/13/17 0652 12/13/17 0652 Imaging Last Impressions Head CT 12/10/17 0507 Signed Impressions: Service Date/Time: Sunday, December 10, 2017 05:47 - CONCLUSION: 1. No evidence of acute intracranial pathology. No masses are identified. Tommy Elizabeth MD Chest X-Ray 12/10/17 0507 Signed Impressions: Service Date/Time: Sunday, December 10, 2017 05:35 - CONCLUSION: 1. Cardiomegaly. No acute pulmonary disease. oTmmy Elizabeth MD Knee X-Ray 12/10/17 0000 Signed Impressions: Service Date/Time: Sunday, December 10, 2017 05:39 - CONCLUSION: 1. There is no evidence of acute fracture. Tommy Elizabeth MD Hip and Pelvis X-Ray 12/10/17 0000 Signed Impressions: Service Date/Time: Sunday, December 10, 2017 05:35 - CONCLUSION: 1. There is no evidence of acute fracture. 2. Possible lytic lesion in the greater trochanter. CT scan is recommended for further evaluation if clinically indicated. Tommy Elizabeth MD A/P Problem List: (1) Acute metabolic encephalopathy ICD Codes: G93.41 - Metabolic encephalopathy Status: Acute Plan: -Patient was hospitalized June 2017 due to osteomyelitis -Family reports that patient has had more difficulty with ADLs in the last several months due to arthritis -Patient recently saw her primary care physician for complaints of arthritis and was prescribed gabapentin and prednisone -Patient was brought to [place] by EMS. Patient was on the floor of her apartment and banging on the floor to get to help. -In the ER, patient was found to have goldy due to dehydration and now probably ATN -questionable uti. now cx looks contaminated -Patient received IV vancomycin and Zosyn. - Also IV fluids -Patient found to be obtunded by nursing staff -CT brain obtained in the ER (12/10/17) showed no acute abnormalities --Case discussed at length with patient's daughter, Ms. sullivan. She requested DNR CODE STATUS acute kidney injury. dehydration and possible atn..slowly improving concern for uti. cx's ngtd metabolic encephalopathy..improving constipation and gaseous distention of stomach. related to medication/acute illness. vomited multiple times. lft trending down. monitor. left greater trochanter. possible lytic lesion. spoke with daughter. pt has had pain in this area. consider CT eval. updated daughter at bedside remove restraints labs pending discussed eval of right trachanter ?lytic lesion..this was area of pain when prescribes pain meds per pcp ...will get noncontrast ct of right hip..also will get the ct a/p to eval her vomiting and gastric distention cont ivf. mod diet. laxatives. add simethicone. ppi. reglan. will check stool cdiff but diarrhea probably related to laxative. renal following and cr slowly imrproving cont PT dvt prophylaxis renal dose meds and holding contraindicated meds. cont basal/bolus insulin (2) ARF (acute renal failure) ICD Codes: N17.9 - Acute kidney failure, unspecified Status: Acute Plan: - see above - IVF - repeat BMP in AM (3) Diabetes ICD Codes: E11.9 - Type 2 diabetes mellitus without complications Status: Chronic Plan: basal.bolus insulin (4) CAD (coronary artery disease) ICD Codes: I25.10 - Atherosclerotic heart disease of [place] coronary artery without angina pectoris Status: Chronic Problem Qualifiers (1) ARF (acute renal failure): Qualified Codes: N17.9 - Acute kidney failure, unspecified (2) Diabetes: Ace,Juan L MD Dec 14, 2017 09:37
[2017-12-14 10:45] LABS: AUTOMATED NEUTROPHIL # 8.4 TH/MM3 (1.8-7.7); BASOPHIL % 0.2 % (0.0-2.0); EOSINOPHIL # 0.1 TH/MM3 (0-0.4); EOSINOPHIL % 0.9 % (0.0-4.0); HEMATOCRIT 30.6 % (35.0-46.0); HEMOGLOBIN 10.1 GM/DL (11.6-15.3); LYMPH % 6.3 % (9.0-44.0); LYMPHOCYTE # 0.7 TH/MM3 (1.0-4.8); MEAN CELL VOLUME 76.2 FL (80.0-100.0); MEAN CORPUSCULAR HEMOGLOBIN 25.2 PG (27.0-34.0); MEAN CORPUSCULAR HGB CONC 33.1 % (32.0-36.0); MEAN PLATELET VOLUME 8.1 FL (7.0-11.0); MONO % 16.8 % (0.0-8.0); MONOCYTE # 1.9 TH/MM3 (0-0.9); NEUT % 75.8 % (16.0-70.0); PLATELET COUNT 295 TH/MM3 (150-450); RED BLOOD COUNT 4.01 MIL/MM3 (4.00-5.30); RED CELL DISTRIBUTION WIDTH 17.5 % (11.6-17.2); WHITE BLOOD COUNT 11.1 TH/MM3 (4.0-11.0)
[2017-12-14] MEDS ORDERED: DIATRIZOATE MEGLUM/DIATRIZOATE SOD 9 ML CUP PO ONE (10:45)
[2017-12-14 11:10] LABS: BICARBONATE 20.1 MEQ/L (21.0-32.0); CALCIUM 7.6 MG/DL (8.5-10.1); CREATININE 2.3 MG/DL (0.50-1.00)
[2017-12-14 11:14] LABS: DIRECT BILIRUBIN ADULT 0.3 MG/DL (0.0-0.2); INDIRECT BILIRUBIN 0.2 MG/DL (0.0-0.8); TOTAL BILIRUBIN ADULT 0.5 MG/DL (0.2-1.0); TOTAL PROTEIN 5.4 GM/DL (6.4-8.2)
--- NOTE | 2017-12-14 11:31 | HHI.NPPN ---
Subjective Renal Failure: Acute Interval History She is not very talkative today. Non oliguric. Creatinine slightly higher today. (Alexandra Pierson) Review of Systems Endocrine Endocrine: Thirst (Alexandra Pierson) Objective Data Data Vital Signs Date Time Temp Pulse Resp B/P (MAP) Pulse Ox O2 Delivery O2 Flow Rate FiO2 12/14/17 08:07 98.3 87 16 126/63 (84) 96 12/14/17 04:00 Room Air 12/14/17 04:00 98.8 88 20 140/63 (88) 94 12/14/17 03:39 88 12/14/17 00:00 Room Air 12/14/17 00:00 99.4 98 20 146/55 (85) 97 12/13/17 23:42 94 12/13/17 20:00 Room Air 12/13/17 20:00 100.9 77 20 169/74 (105) 94 12/13/17 19:44 102 12/13/17 16:00 98.5 84 20 156/77 (103) 96 12/13/17 16:00 83 12/13/17 12:00 100.4 116 20 171/76 (107) 97 (Alexandra Pierson) -: 12/14/17 1017 12/14/17 1017 Imaging Last 72 hours Impressions Abdomen X-Ray 12/14/17 0600 Signed Impressions: Service Date/Time: Thursday, December 14, 2017 06:11 - CONCLUSION: No evidence of bowel obstruction. Bernie Ponce MD Abdomen X-Ray 12/13/17 0600 Signed Impressions: Service Date/Time: Wednesday, December 13, 2017 08:47 - CONCLUSION: 1. Gaseous distention of the stomach. Marino Melgar MD Abdomen X-Ray 12/12/17 0000 Signed Impressions: Service Date/Time: Tuesday, December 12, 2017 08:08 - CONCLUSION: Gaseous distention of bowel loops without obstruction. Marino Melgar MD Tubes & Lines: Fernando (Alexandra Pierson) Physical Exam General Appearance: Well Developed, Comfortable, Obese (Alexandra Pierson) Eyes Eye Exam: Pupils Equal (Alexandra Pierson) Neck Neck Exam: Neck Supple (Alexandra Pierson) Pulmonary Resp Exam: Breath Sounds Equal, No Distress, Rhonchi (Alexandra Pierson) Cardiology CV Exam: Regular, Normal Sinus Rhythm (Alexandra Pierson) Gastrointestinal/Abdomen GI Exam: Soft, Non-Tender, Distended (Alexandra Pierson) Musculoskeletal MS Exam: Normal Tone, Good Strength, Unable to Ambulate (Alexandra Pierson) Integumentary Skin Exam: Warm, Dry, Intact (Alexandra Pierson) Extremeties Extremities Exam: No Edema, Pedal Pulses Palpable (Alexandra Pierson) Neurologic Neuro Exam: Awake, Moving All Extremities (Alexandra Pierson) Psychiatric Psych Exam: Appropriate Responses (Alexandra Pierson) Assessment/Plan Discussed Condition With: Patient Assessment Summary: ALEC/Acute Renal Failure Problem List: (1) ARF (acute renal failure) ICD Codes: N17.9 - Acute kidney failure, unspecified Status: Acute Plan: ALEC could be due to pre-renal azotemia or UTI; but could have progressed to ATN due to sepsis/infection. Renal function slightly worse today Reduce IVF to 50 cc/hr, taper off over next few days She is non oliguric, has Fernando. Encourage oral fluids. Avoid nephrotoxic agents. Dose medications appropriate to renal function. Continue treatment for UTI. AM labs ordered (2) UTI (urinary tract infection) ICD Codes: N39.0 - Urinary tract infection, site not specified Status: Acute Plan: On Zosyn, continue supportive care (3) Diabetes ICD Codes: E11.9 - Type 2 diabetes mellitus without complications Status: Chronic Plan: continue insulin coverage to maintain blood glucose between 140 and 180 while hospitalized. (4) Acute metabolic encephalopathy ICD Codes: G93.41 - Metabolic encephalopathy Status: Acute Plan: will need SNF, possibly [facility] as she has been falling, lives alone. (Alexandra Pierson) Plan patient was seen and examined. Agree with above assessment and plan. Taper off fluids, encourage oral intake. Avoid nephrotoxic agents. (Stiven Chen MD) Problem Qualifiers (1) ARF (acute renal failure): Qualified Codes: N17.9 - Acute kidney failure, unspecified (2) UTI (urinary tract infection): (3) Diabetes: Alexandra Pierson Dec 14, 2017 11:31 Stiven Chen MD Dec 14, 2017 21:25
--- NOTE | 2017-12-14 16:13 | RADRPT ---
EXAM DATE/TIME: 12/14/2017 15:48 [facility] COMPARISON: No previous studies available for comparison. INDICATIONS : Abdominal pain, vomiting ORAL CONTRAST: Partial prescribed oral contrast ingested. RADIATION DOSE: 8.87 CTDIvol (mGy) MEDICAL HISTORY : Cardiovascular disease. Hypertension. Diabetes mellitus type 1. SURGICAL HISTORY : Cholecystectomy. Hysterectomy. ENCOUNTER: Initial ACUITY: 2 days PAIN SCALE: 4/10 LOCATION: abdomen TECHNIQUE: Volumetric scanning of the abdomen and pelvis was performed. Using automated exposure control and ad justment of the mA and/or kV according to patient size, radiation dose was kept as low as reasonably achievable to obtain optimal diagnostic quality images. DICOM format image data is available electro nically for review and comparison. FINDINGS: LOWER LUNGS: Patchy air space disease in both lungs, most prominent in the right perihilar distribution. Findings are concerning for pneumonic infiltrates. Very small bilateral pleural effusions LIVER: Homogeneous density without lesion. There is no dilation of the biliary tree. Patient is status post cholecystectomy. SPLEEN: Normal size without lesion. PANCREAS: Within normal limits. KIDNEYS: Normal in size and shape. There is no mass, stone, or hydronephrosis. Mild, symmetric perinephric st randing probably related to some volume overload ADRENAL GLANDS: Within normal limits. VASCULAR: There is no aortic aneurysm. BOWEL/MESENTERY: Scattered diverticular disease in the colon without diverticulitis. ABDOMINAL WALL: Fluid within the subcutaneous tissues, particularly the flanks probably representing some vascular co ngestion or volume overload. RETROPERITONEUM: There is no lymphadenopathy. BLADDER: No wall thickening or mass. REPRODUCTIVE: Within normal limits. INGUINAL: There is no lymphadenopathy or hernia. MUSCULOSKELETAL: Within normal limits for patient age. CONCLUSION: 1. 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 2. Patient is status post cholecystectomy. 3. Bilateral confluent airspace densities in both lungs, most prominent in the right perihilar distri bution. Findings are concerning for bilateral pneumonic infiltrates. This may explain patient's perce ived abdominal pain. 4. Findings of vascular congestion or right heart insufficiency with some perinephric stranding and s ymmetric bilateral flank edema. Guanaco Montes MD on December 14, 2017 at 16:03 Board Certified Radiologist. This report was verified electronically.
--- NOTE | 2017-12-14 16:24 | RADRPT ---
EXAM DATE/TIME: 12/14/2017 15:48 [place] COMPARISON: HIP RIGHT (AP&LAT 2/3VWS) W AP PELVIS, December 10, 2017, 5:35. INDICATIONS : Lytic lesion on right trochanter RADIATION DOSE: CTDIvol (mGy) ; Reconstructed from previous dataset, no dose MEDICAL HISTORY : Hypertension. Diabetes mellitus type 1. Cardiovascular disease SURGICAL HISTORY : Cholecystectomy. Hysterectomy. ENCOUNTER: Initial ACUITY: 1 day PAIN SCALE: 1/10 LOCATION: Right hip TECHNIQUE: Volumetric scanning of the hip was performed. Using automated exposure control and adjustment of the mA and/or kV according to patient size, radiation dose was kept as low as reasonably achievable to o btain optimal diagnostic quality images. DICOM format image data is available electronically for rev iew and comparison. FINDINGS: There are degenerative changes about the right hip. Lytic lesion is not identified. Degenerative changes about both SI joints. The contents are unremarkable. Fracture not appreciated. Extensive degenerative changes in the lumbar spine. Moderate vascular calcifications. CONCLUSION: Degenerative changes. I don't see suspicious lytic lesions. Pal Cancino MD FACR on December 14, 2017 at 16:19 Board Certified Radiologist. This report was verified electronically.
[2017-12-14] MEDS: SODIUM CHLOR 0.45% 1000 ML INJ 1,000 ML IV SCH (19:21)
[2017-12-14] MEDS: TIOTROPIUM BROMIDE 18 MCG INH INH SCH (22:14)
[2017-12-15] VITALS (10 sets, daily range): BP systolic 134–172; BP diastolic 60–77; PULSE 80–108; RESP 18–21; TEMP 97.3–98.8; O2SAT 96–99
[2017-12-15] MEDS: RESP: ALBUTEROL 2.5 MG/IPRATROPIUM 0.5 MG NEB (SCH) NEB ×6 (00:13→19:00)
[2017-12-15] MEDS: SIMETHICONE 125 MG CHEWABLE TAB PO SCH ×3 (05:43→20:51)
[2017-12-15] MEDS: METOCLOPRAMIDE HCL 10 MG/2 ML VIAL IV PUSH SCH ×3 (05:43→20:52)
[2017-12-15 07:21] LABS: BICARBONATE 20.2 MEQ/L (21.0-32.0); CALCIUM 7.6 MG/DL (8.5-10.1); CREATININE 1.82 MG/DL (0.50-1.00)
[2017-12-15] MEDS: INSULIN NovoLIN REGULAR SUPPLEMENTAL SCALE SQ SCH ×4 (08:00→20:52)
[2017-12-15] MEDS ORDERED: POTASSIUM CHLORIDE 20 MEQ CONTROLLED RELEASE TAB PO ONE (08:00)
--- NOTE | 2017-12-15 08:22 | HHI.NPPN ---
Subjective Renal Failure: Acute Interval History patient's renal function continues to improve. Notes were reviewed. Potassium replacement ordered. Review of Systems Endocrine Endocrine: Thirst Objective Data Data Vital Signs Date Time Temp Pulse Resp B/P (MAP) Pulse Ox O2 Delivery O2 Flow Rate FiO2 12/15/17 04:00 98.8 95 21 134/63 (86) 98 12/15/17 04:00 104 12/15/17 03:56 98 12/15/17 00:14 96 12/15/17 00:00 94 12/15/17 00:00 98.3 97 19 135/60 (85) 98 12/14/17 20:25 98 12/14/17 20:00 98 12/14/17 19:48 98.5 102 16 122/59 (80) 98 12/14/17 19:00 98 Room Air 12/14/17 16:07 98.0 86 16 126/62 (83) 96 12/14/17 12:07 98.1 88 16 128/64 (85) 97 -: 12/14/17 1017 12/15/17 0540 Tubes & Lines: Fernando Physical Exam General Appearance: Well Developed, Comfortable, Obese Eyes Eye Exam: Pupils Equal Neck Neck Exam: Neck Supple Pulmonary Resp Exam: Breath Sounds Equal, No Distress, Rhonchi Cardiology CV Exam: Regular, Normal Sinus Rhythm Gastrointestinal/Abdomen GI Exam: Soft, Non-Tender, Distended Musculoskeletal MS Exam: Normal Tone, Good Strength, Unable to Ambulate Integumentary Skin Exam: Warm, Dry, Intact Extremeties Extremities Exam: No Edema, Pedal Pulses Palpable Neurologic Neuro Exam: Awake, Moving All Extremities Psychiatric Psych Exam: Appropriate Responses Assessment/Plan Discussed Condition With: Patient Assessment Summary: ALEC/Acute Renal Failure Problem List: (1) ARF (acute renal failure) ICD Codes: N17.9 - Acute kidney failure, unspecified Status: Acute Plan: ALEC could be due to pre-renal azotemia or UTI; but could have progressed to ATN due to sepsis/infection. Improved renal function. IVF can be tapered off. (2) UTI (urinary tract infection) ICD Codes: N39.0 - Urinary tract infection, site not specified Status: Acute Plan: On Zosyn, continue supportive care (3) Diabetes ICD Codes: E11.9 - Type 2 diabetes mellitus without complications Status: Chronic Plan: continue insulin coverage to maintain blood glucose between 140 and 180 while hospitalized. (4) Acute metabolic encephalopathy ICD Codes: G93.41 - Metabolic encephalopathy Status: Acute Plan: will need SNF, possibly [facility] as she has been falling, lives alone. Problem Qualifiers (1) ARF (acute renal failure): Qualified Codes: N17.9 - Acute kidney failure, unspecified (2) UTI (urinary tract infection): (3) Diabetes: Stiven Chen MD Dec 15, 2017 08:22
--- NOTE | 2017-12-15 08:42 | HHI.PR ---
Subjective Remarks pt more oriented Objective Vitals heart reg lung course bs cecilia abd s/nt. bs ext no edema Vital Signs Date Time Temp Pulse Resp B/P (MAP) Pulse Ox O2 Delivery O2 Flow Rate FiO2 12/15/17 04:00 98.8 95 21 134/63 (86) 98 12/15/17 04:00 104 12/15/17 03:56 98 12/15/17 00:14 96 12/15/17 00:00 94 12/15/17 00:00 98.3 97 19 135/60 (85) 98 12/14/17 20:25 98 12/14/17 20:00 98 12/14/17 19:48 98.5 102 16 122/59 (80) 98 12/14/17 19:00 98 Room Air 12/14/17 16:07 98.0 86 16 126/62 (83) 96 12/14/17 12:07 98.1 88 16 128/64 (85) 97 Result Diagram: 12/14/17 1017 12/15/17 0540 Imaging Last Impressions Head CT 12/10/17 0507 Signed Impressions: Service Date/Time: Sunday, December 10, 2017 05:47 - CONCLUSION: 1. No evidence of acute intracranial pathology. No masses are identified. Tommy Elizabeth MD Chest X-Ray 12/10/17 0507 Signed Impressions: Service Date/Time: Sunday, December 10, 2017 05:35 - CONCLUSION: 1. Cardiomegaly. No acute pulmonary disease. Tommy Elizabeth MD Knee X-Ray 12/10/17 0000 Signed Impressions: Service Date/Time: Sunday, December 10, 2017 05:39 - CONCLUSION: 1. There is no evidence of acute fracture. Tommy Elizabeth MD Hip and Pelvis X-Ray 12/10/17 0000 Signed Impressions: Service Date/Time: Sunday, December 10, 2017 05:35 - CONCLUSION: 1. There is no evidence of acute fracture. 2. Possible lytic lesion in the greater trochanter. CT scan is recommended for further evaluation if clinically indicated. Tommy Elizabeth MD A/P Problem List: (1) Acute metabolic encephalopathy ICD Codes: G93.41 - Metabolic encephalopathy Status: Acute Plan: -Patient was hospitalized June 2017 due to osteomyelitis -Family reports that patient has had more difficulty with ADLs in the last several months due to arthritis -Patient recently saw her primary care physician for complaints of arthritis and was prescribed gabapentin and prednisone -Patient was brought to [place] by EMS. Patient was on the floor of her apartment and banging on the floor to get to help. -In the ER, patient was found to have goldy due to dehydration and now probably ATN -questionable uti. now cx looks contaminated -Patient received IV vancomycin and Zosyn. - Also IV fluids -Patient found to be obtunded by nursing staff -CT brain obtained in the ER (12/10/17) showed no acute abnormalities --Case discussed at length with patient's daughter, Ms. sullivan. She requested DNR CODE STATUS acute kidney injury. dehydration and possible atn..slowly improving concern for uti. cx's ngtd metabolic encephalopathy..improving constipation and gaseous distention of stomach. related to medication/acute illness. vomited multiple times. lft trending down. monitor. left greater trochanter. possible lytic lesion. CT negative for lytic process bilateral pulmonary infiltrates felt most likely aspiration pna updated daughter off restraints cont ivf. mod diet. laxatives as needed.simethicone. ppi. reglan. renal following and cr slowly imrproving cont PT plan for snf upon d/c cont abx cont nebs monitor for resp. decline. dvt prophylaxis renal dose meds and holding contraindicated meds. cont basal/bolus insulin but lower due to hypoglycemia (2) ARF (acute renal failure) ICD Codes: N17.9 - Acute kidney failure, unspecified Status: Acute Plan: - see above - IVF - repeat BMP in AM (3) Diabetes ICD Codes: E11.9 - Type 2 diabetes mellitus without complications Status: Chronic Plan: basal.bolus insulin (4) CAD (coronary artery disease) ICD Codes: I25.10 - Atherosclerotic heart disease of [place] coronary artery without angina pectoris Status: Chronic Problem Qualifiers (1) ARF (acute renal failure): Qualified Codes: N17.9 - Acute kidney failure, unspecified (2) Diabetes: uJan Bello MD Dec 15, 2017 08:42
[2017-12-15] MEDS: DILTIAZEM-CD 240 MG CAP ER PO SCH (09:15)
[2017-12-15] MEDS: PANTOPRAZOLE SOD 40 MG DELAYED RELEASE TAB PO SCH (09:15)
[2017-12-15] MEDS: LEVOFLOXACIN 250 MG TAB PO SCH (09:15)
[2017-12-15] MEDS: METOPROLOL TARTRATE 25 MG TAB PO SCH ×2 (09:15→20:51)
[2017-12-15] MEDS: APIXABAN 5 MG TABLET PO SCH ×2 (09:15→20:51)
[2017-12-15] MEDS: traMADol HCL 50 MG TAB PO PRN ×2 (13:53→18:36)
[2017-12-15] MEDS: SODIUM CHLOR 0.45% 1000 ML INJ 1,000 ML IV SCH (13:53)
[2017-12-15] MEDS: INSULIN DETEMIR 100 UNITS/ML VIAL SQ SCH (20:51)
[2017-12-15] MEDS: TIOTROPIUM BROMIDE 18 MCG INH INH SCH (20:53)
[2017-12-16] VITALS (10 sets, daily range): BP systolic 98–154; BP diastolic 59–70; PULSE 70–103; RESP 18–20; TEMP 97.9–98.5; O2SAT 95–98
[2017-12-16] MEDS: RESP: ALBUTEROL 2.5 MG/IPRATROPIUM 0.5 MG NEB (SCH) NEB ×6 (00:11→19:39)
[2017-12-16] MEDS: traMADol HCL 50 MG TAB PO PRN ×5 (00:34→20:57)
[2017-12-16] MEDS: SIMETHICONE 125 MG CHEWABLE TAB PO SCH ×3 (05:31→20:57)
[2017-12-16] MEDS: METOCLOPRAMIDE HCL 10 MG/2 ML VIAL IV PUSH SCH (05:41)
[2017-12-16] MEDS: INSULIN NovoLIN REGULAR SUPPLEMENTAL SCALE SQ SCH ×4 (07:46→21:02)
[2017-12-16 08:00] LABS: BICARBONATE 19.9 MEQ/L (21.0-32.0); CALCIUM 8.1 MG/DL (8.5-10.1); CREATININE 1.55 MG/DL (0.50-1.00)
[2017-12-16] MEDS: APIXABAN 5 MG TABLET PO SCH ×2 (08:38→20:58)
[2017-12-16] MEDS: METOPROLOL TARTRATE 25 MG TAB PO SCH ×2 (08:38→21:01)
[2017-12-16] MEDS: LEVOFLOXACIN 250 MG TAB PO SCH (08:38)
[2017-12-16] MEDS: PANTOPRAZOLE SOD 40 MG DELAYED RELEASE TAB PO SCH (08:38)
[2017-12-16] MEDS: DILTIAZEM-CD 240 MG CAP ER PO SCH (08:38)
[2017-12-16] MEDS: SODIUM CHLOR 0.45% 1000 ML INJ 1,000 ML IV SCH (08:38)
[2017-12-16] MEDS: INSULIN DETEMIR 100 UNITS/ML VIAL SQ SCH (08:48)
--- NOTE | 2017-12-16 09:14 | HHI.PR ---
Subjective Remarks tolerating food bm's slowing down no n/v pt says on chronic prednisone Objective Vitals heart reg lung good air entry abd s/nt no edema Vital Signs Date Time Temp Pulse Resp B/P (MAP) Pulse Ox O2 Delivery O2 Flow Rate FiO2 12/16/17 08:10 21 12/16/17 08:07 98.3 97 18 103/67 (79) 96 12/16/17 04:00 98.0 78 20 154/67 (96) 95 12/16/17 04:00 88 12/16/17 00:05 79 12/16/17 00:00 97.9 73 20 123/59 (80) 96 12/15/17 20:30 88 12/15/17 20:00 97.9 95 18 155/77 (103) 97 12/15/17 19:00 Room Air 12/15/17 16:00 97.7 80 18 172/77 (108) 98 12/15/17 16:00 96 12/15/17 15:11 99 21 12/15/17 12:00 99 12/15/17 12:00 97.3 100 20 143/63 (89) 98 Result Diagram: 12/14/17 1017 12/16/17 0538 Imaging Last Impressions Head CT 12/10/17 0507 Signed Impressions: Service Date/Time: Sunday, December 10, 2017 05:47 - CONCLUSION: 1. No evidence of acute intracranial pathology. No masses are identified. Tommy Elizabeth MD Chest X-Ray 12/10/17 0507 Signed Impressions: Service Date/Time: Sunday, December 10, 2017 05:35 - CONCLUSION: 1. Cardiomegaly. No acute pulmonary disease. Tommy Elizabeth MD Knee X-Ray 12/10/17 0000 Signed Impressions: Service Date/Time: Sunday, December 10, 2017 05:39 - CONCLUSION: 1. There is no evidence of acute fracture. Tommy Elizabeth MD Hip and Pelvis X-Ray 12/10/17 0000 Signed Impressions: Service Date/Time: Sunday, December 10, 2017 05:35 - CONCLUSION: 1. There is no evidence of acute fracture. 2. Possible lytic lesion in the greater trochanter. CT scan is recommended for further evaluation if clinically indicated. Tommy Elizabeth MD A/P Problem List: (1) Acute metabolic encephalopathy ICD Codes: G93.41 - Metabolic encephalopathy Status: Acute Plan: -Patient was hospitalized June 2017 due to osteomyelitis -Family reports that patient has had more difficulty with ADLs in the last several months due to arthritis -Patient recently saw her primary care physician for complaints of arthritis and was prescribed gabapentin and prednisone -Patient was brought to [place] by EMS. Patient was on the floor of her apartment and banging on the floor to get to help. -In the ER, patient was found to have goldy due to dehydration and now probably ATN -questionable uti. now cx looks contaminated -Patient received IV vancomycin and Zosyn. - Also IV fluids -Patient found to be obtunded by nursing staff -CT brain obtained in the ER (12/10/17) showed no acute abnormalities --Case discussed at length with patient's daughter, Ms. sullivan. She requested DNR CODE STATUS acute kidney injury. dehydration and possible atn..slowly improving concern for uti. cx's ngtd metabolic encephalopathy..improving constipation and gaseous distention of stomach. related to medication/acute illness. vomited multiple times. lft trending down. monitor. left greater trochanter. possible lytic lesion. CT negative for lytic process bilateral pulmonary infiltrates felt most likely aspiration pna dm...currently more euglycemic/hypoglycemia updated daughter off restraints cont ivf per renal. mod diet. laxatives as needed.simethicone. ppi. stop reglan. renal following and cr slowly imrproving cont PT cont abx cont nebs resume chronic prednisone monitor for resp. decline. dvt prophylaxis renal dose meds and holding contraindicated meds. hold basal insulin and monitor. ssi. d/c to snf in AM (2) ARF (acute renal failure) ICD Codes: N17.9 - Acute kidney failure, unspecified Status: Acute Plan: - see above - IVF - repeat BMP in AM (3) Diabetes ICD Codes: E11.9 - Type 2 diabetes mellitus without complications Status: Chronic Plan: basal.bolus insulin (4) CAD (coronary artery disease) ICD Codes: I25.10 - Atherosclerotic heart disease of [place] coronary artery without angina pectoris Status: Chronic (5) COPD (chronic obstructive pulmonary disease) ICD Codes: J44.9 - Chronic obstructive pulmonary disease, unspecified Status: Chronic (6) CKD (chronic kidney disease) stage 3, GFR 30-59 ml/min ICD Codes: N18.3 - Chronic kidney disease, stage 3 (moderate) Problem Qualifiers (1) ARF (acute renal failure): Qualified Codes: N17.9 - Acute kidney failure, unspecified (2) Diabetes: Juan Bello MD Dec 16, 2017 09:14
[2017-12-16] MEDS: predniSONE 5 MG TAB PO SCH (11:20)
--- NOTE | 2017-12-16 13:56 | HHI.NPPN ---
Subjective Renal Failure: Acute Interval History Renal function is better. Alert, not in distress. Eating lunch. (Alexandra Pierson) Review of Systems Endocrine Endocrine: Thirst (Alexandra Pierson) Objective Data Data Vital Signs Date Time Temp Pulse Resp B/P (MAP) Pulse Ox O2 Delivery O2 Flow Rate FiO2 12/16/17 12:07 98.5 86 18 118/70 (86) 98 12/16/17 12:00 92 12/16/17 08:10 21 12/16/17 08:07 98.3 97 18 103/67 (79) 96 12/16/17 08:00 89 12/16/17 08:00 Room Air 12/16/17 04:00 98.0 78 20 154/67 (96) 95 12/16/17 04:00 88 12/16/17 00:05 79 12/16/17 00:00 97.9 73 20 123/59 (80) 96 12/15/17 20:30 88 12/15/17 20:00 97.9 95 18 155/77 (103) 97 12/15/17 19:00 Room Air 12/15/17 16:00 97.7 80 18 172/77 (108) 98 12/15/17 16:00 96 12/15/17 15:11 99 21 (Alexandra Pierson) -: 12/14/17 1017 12/16/17 0538 Imaging Last 72 hours Impressions Abdomen X-Ray 12/14/17 0600 Signed Impressions: Service Date/Time: Thursday, December 14, 2017 06:11 - CONCLUSION: No evidence of bowel obstruction. Bernie Ponce MD Lower Extremity CT 12/14/17 0000 Signed Impressions: Service Date/Time: Thursday, December 14, 2017 15:48 - CONCLUSION: Degenerative changes. I don't see suspicious lytic lesions. Pal Cancino MD FACR Abdomen/Pelvis CT 12/14/17 0000 Signed Impressions: Service Date/Time: Thursday, December 14, 2017 15:48 - CONCLUSION: 1. 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 2. Patient is status post cholecystectomy. 3. Bilateral confluent airspace densities in both lungs, most prominent in the right perihilar distribution. Findings are concerning for bilateral pneumonic infiltrates. This may explain patient's perceived abdominal pain. 4. Findings of vascular congestion or right heart insufficiency with some perinephric stranding and symmetric bilateral flank edema. Guanaco Montes MD Tubes & Lines: Fernando (Dangelo,Alexandra B. BLADE BONER) Physical Exam General Appearance: Well Developed, No Acute Distress, Comfortable, Obese (Dangelo,Alexandra B. BLADE BONER) Eyes Eye Exam: Pupils Equal (Dangelo,Alexandra B. BLADE BONER) Neck Neck Exam: Neck Supple (Dangelo,Alexandra B. BLADE BONER) Pulmonary Resp Exam: Breath Sounds Equal, No Distress, Rhonchi (Dangelo,Alexandra B. BLADE BONER) Cardiology CV Exam: Regular, Normal Sinus Rhythm (Dangelo,Alexandra B. BLADE BONER) Gastrointestinal/Abdomen GI Exam: Soft, Non-Tender, Distended (Dangelo,Alexandra B. BLADE BONER) Musculoskeletal MS Exam: Normal Tone, Good Strength, Unable to Ambulate (Dangelo,Alexandra B. BLADE BONER) Integumentary Skin Exam: Warm, Dry, Intact (Dangelo,Alexandra B. BLADE BONER) Extremeties Extremities Exam: No Edema, Pedal Pulses Palpable (Dangelo,Alexandra B. BLADE BONER) Neurologic Neuro Exam: Awake, Moving All Extremities (Dangelo,Alexandra B. BLADE BONER) Psychiatric Psych Exam: Appropriate Responses (Dangelo,Alexandra B. BLADE BONER) Assessment/Plan Discussed Condition With: Patient Assessment Summary: ALEC/Acute Renal Failure Problem List: (1) ARF (acute renal failure) ICD Codes: N17.9 - Acute kidney failure, unspecified Status: Acute Plan: ALEC could be due to pre-renal azotemia or UTI; but could have progressed to ATN due to sepsis/infection. Renal function has improved Stop IVF. Avoid nephrotoxic agents. Monitor urine output. (2) UTI (urinary tract infection) ICD Codes: N39.0 - Urinary tract infection, site not specified Status: Acute Plan: On Zosyn, continue supportive care (3) Diabetes ICD Codes: E11.9 - Type 2 diabetes mellitus without complications Status: Chronic Plan: continue insulin coverage to maintain blood glucose between 140 and 180 while hospitalized. (4) Acute metabolic encephalopathy ICD Codes: G93.41 - Metabolic encephalopathy Status: Acute Plan: will need SNF, possibly [facility] as she has been falling, lives alone. Plan We will sign off at this time. Please call us if needed. (Alexandra Pierson) Plan patient was seen and examined. Agree with above assessment and plan. (Stiven Chen MD) Problem Qualifiers (1) ARF (acute renal failure): Qualified Codes: N17.9 - Acute kidney failure, unspecified (2) UTI (urinary tract infection): (3) Diabetes: Alexandra Pierson Dec 16, 2017 13:56 Stiven Chen MD Dec 16, 2017 13:57
[2017-12-16] MEDS: TIOTROPIUM BROMIDE 18 MCG INH INH SCH (20:55)
[2017-12-17] VITALS: BP 147/71; PULSE 76; PULSE 79; RESP 18; TEMP 98.5; O2SAT 98
[2017-12-17 00:35] VITALS: O2SAT 98
[2017-12-17] MEDS: RESP: ALBUTEROL 2.5 MG/IPRATROPIUM 0.5 MG NEB (SCH) NEB ×4 (00:35→10:41)
[2017-12-17 04:00] VITALS: BP 125/62; PULSE 72; PULSE 89; RESP 17; TEMP 98.7; O2SAT 97
[2017-12-17] MEDS: SIMETHICONE 125 MG CHEWABLE TAB PO SCH ×2 (06:00→13:36)
[2017-12-17 07:00] VITALS: BP 150/66; PULSE 91; RESP 16; TEMP 98.3; O2SAT 97
[2017-12-17 08:00] VITALS: PULSE 83
[2017-12-17] MEDS: INSULIN NovoLIN REGULAR SUPPLEMENTAL SCALE SQ SCH ×2 (08:00→11:37)
[2017-12-17] MEDS ORDERED: LEVA250T14 PO (08:56)
[2017-12-17] MEDS ORDERED: SIME125 PO (08:56)
[2017-12-17] MEDS ORDERED: PANT40TA3 PO (08:56)
[2017-12-17] MEDS ORDERED: METO25TA3 PO (08:56)
[2017-12-17] MEDS ORDERED: IPRA0.02 NEB (08:56)
[2017-12-17] MEDS ORDERED: INSULIN DETEMIR 100 UNITS/ML VIAL SQ SCH (09:00)
[2017-12-17] MEDS ORDERED: TRAM50 PO (09:02)
[2017-12-17] MEDS: DILTIAZEM-CD 240 MG CAP ER PO SCH (09:03)
[2017-12-17] MEDS: APIXABAN 5 MG TABLET PO SCH (09:03)
[2017-12-17] MEDS: LEVOFLOXACIN 250 MG TAB PO SCH (09:03)
[2017-12-17] MEDS: PANTOPRAZOLE SOD 40 MG DELAYED RELEASE TAB PO SCH (09:03)
[2017-12-17] MEDS: predniSONE 5 MG TAB PO SCH (09:03)
[2017-12-17] MEDS: traMADol HCL 50 MG TAB PO PRN ×2 (09:04→13:36)
[2017-12-17] MEDS: METOPROLOL TARTRATE 25 MG TAB PO SCH (09:05)
--- NOTE | 2017-12-17 09:05 | HHI.DCPOC ---
Discharge Care Plan Diagnosis: (1) ARF (acute renal failure) (2) Acute metabolic encephalopathy (3) Diabetes Goals to Promote Your Health * To prevent worsening of your condition and complications * To maintain your health at the optimal level Directions to Meet Your Goals Take your medications as prescribed Follow your dietary instruction Follow activity as directed Keep your appointments as scheduled Take your immunizations and boosters as scheduled If your symptoms worsen call your PCP, if no PCP go to Urgent Care Center or Emergency Room Smoking is Dangerous to Your Health. Avoid second hand smoke Call the 24-hour hour crisis hotline for domestic abuse at Juan Bello MD Dec 17, 2017 09:05
--- NOTE | 2017-12-17 09:12 | HHI.DS ---
Discharge Summary Admission Date Dec 10, 2017 at 06:30 Discharge Date: Dec 17, 2017 Admitting Diagnosis ARF afib UTI (1) Acute metabolic encephalopathy Diagnosis: Principal ICD Codes: G93.41 - Metabolic encephalopathy Status: Acute (2) Atrial fibrillation Diagnosis: Principal ICD Codes: I48.91 - Unspecified atrial fibrillation (3) ARF (acute renal failure) Diagnosis: Principal ICD Codes: N17.9 - Acute kidney failure, unspecified Status: Acute (4) Diabetes Diagnosis: Secondary ICD Codes: E11.9 - Type 2 diabetes mellitus without complications Status: Chronic (5) CAD (coronary artery disease) Diagnosis: Secondary ICD Codes: I25.10 - Atherosclerotic heart disease of [place] coronary artery without angina pectoris Status: Chronic (6) COPD (chronic obstructive pulmonary disease) Diagnosis: Secondary ICD Codes: J44.9 - Chronic obstructive pulmonary disease, unspecified Status: Chronic (7) CKD (chronic kidney disease) stage 3, GFR 30-59 ml/min Diagnosis: Secondary ICD Codes: N18.3 - Chronic kidney disease, stage 3 (moderate) Brief History Patient is an 82-year-old female with history of diabetes, hypertension, coronary artery disease, status post CABG, depression, anxiety, COPD, congestive heart failure. Patient was hospitalized here at [facility] June 2017 due to left foot osteomyelitis. Patient was brought to [facility] by EMS. The exact events are unclear, but patient was found on the floor of her home, apartment, banging on the floor for help. In the ER patient was found to have a urinary tract infection and acute renal failure. Patient noted to have fever with T-max of 101 at 9:45 AM. Patient noted to have pyuria on admission with elevated white count of 20.4 K. Patient received vancomycin and Zosyn in the ER patient's WBC is currently 8.4. Blood cultures and urine culture are pending. Chest x-ray did not show any infiltrates. CT brain did not show any acute findings. Patient had mild elevation of her transaminases. This afternoon patient was found to be obtunded by nursing staff. [facility] was called. ABG obtained without marked hypercapnia. Ammonia level is within normal limits. Case discussed with patient's great granddaughter who works here at [facility] and pharmacy. Patient discussed with patient's daughter by phone, Ms. Zulma Horton. Per family, patient has been having more difficulty ambulating over the last several months due to worsening osteoarthritis. Patient recently saw her primary care physician, Dr. Guidry due to arthritic pain. Patient was started on Neurontin and tapered prednisone. Patient's daughter, Ms. Horton is the only living child. Ms. Horton requested DNR status. Most likely patient's change in mental status is due to metabolic encephalopathy secondary to patient's urinary tract infection and acute renal failure. Will transfer patient to the ICU. Request critical care consultation. Request neurology consultation. Patient is not following commands. Patient does not open her eyes to voice. Continue intravenous fluids. Continue IV antibiotics. Obtain EEG. Consider MRI of brain. If patient does not make improvement over the next 24 hours, then family is agreeable to exploring hospice. CBC/BMP: 12/14/17 1017 12/16/17 0538 Significant Findings Laboratory Tests Test 12/14/17 10:17 12/14/17 11:45 12/15/17 05:40 12/16/17 05:38 White Blood Count 11.1 TH/MM3 (4.0-11.0) Hemoglobin 10.1 GM/DL (11.6-15.3) Hematocrit 30.6 % (35.0-46.0) Mean Corpuscular Volume 76.2 FL (80.0-100.0) Mean Corpuscular Hemoglobin 25.2 PG (27.0-34.0) Red Cell Distribution Width 17.5 % (11.6-17.2) Neutrophils (%) (Auto) 75.8 % (16.0-70.0) Lymphocytes (%) (Auto) 6.3 % (9.0-44.0) Monocytes (%) (Auto) 16.8 % (0.0-8.0) Neutrophils # (Auto) 8.4 TH/MM3 (1.8-7.7) Lymphocytes # (Auto) 0.7 TH/MM3 (1.0-4.8) Monocytes # (Auto) 1.9 TH/MM3 (0-0.9) Blood Urea Nitrogen 41 MG/DL (7-18) 34 MG/DL (7-18) 25 MG/DL (7-18) Creatinine 2.30 MG/DL (0.50-1.00) 1.82 MG/DL (0.50-1.00) 1.55 MG/DL (0.50-1.00) Random Glucose 136 MG/DL (74-106) 59 MG/DL (74-106) Total Protein 5.4 GM/DL (6.4-8.2) Albumin 2.0 GM/DL (3.4-5.0) Calcium Level 7.6 MG/DL (8.5-10.1) 7.6 MG/DL (8.5-10.1) 8.1 MG/DL (8.5-10.1) Alkaline Phosphatase 132 U/L (45-117) Direct Bilirubin 0.3 MG/DL (0.0-0.2) Chloride Level 110 MEQ/L (98-107) 114 MEQ/L (98-107) 114 MEQ/L (98-107) Carbon Dioxide Level 20.1 MEQ/L (21.0-32.0) 20.2 MEQ/L (21.0-32.0) 19.9 MEQ/L (21.0-32.0) Estimat Glomerular Filtration Rate 20 ML/MIN (>89) 27 ML/MIN (>89) 32 ML/MIN (>89) Potassium Level 3.3 MEQ/L (3.5-5.1) Hospital Course (1) Acute metabolic encephalopathy -Patient was hospitalized June 2017 due to osteomyelitis -Family reports that patient has had more difficulty with ADLs in the last several months due to arthritis -Patient recently saw her primary care physician for complaints of arthritis and was prescribed gabapentin and prednisone -Patient was brought to [facility] by EMS. Patient was on the floor of her apartment and banging on the floor to get to help. -In the ER, patient was found to have goldy due to dehydration and now probably ATN. she has ckd 3. -questionable uti. now cx looks contaminated -Patient received IV vancomycin and Zosyn. - Also IV fluids -Patient found to be obtunded by nursing staff -CT brain obtained in the ER (12/10/17) showed no acute abnormalities --Case discussed at length with patient's daughter, Ms. sullivan. She requested DNR CODE STATUS acute kidney injury. dehydration and possible atn..slowly improving afib/rvr...controlled. stop dig. cont bb/ccb/anticoagulation. concern for uti but cx's ngtd metabolic encephalopathy..improving constipation and gaseous distention of stomach. related to medication/acute illness. vomited multiple times. ...given laxatives and reglan with improvement. lft trending down. monitor. left greater trochanter. possible lytic lesion. CT negative for lytic process bilateral pulmonary infiltrates felt most likely aspiration pna after vomiting. dm...currently more euglycemic/hypoglycemia...observe off her tresiba and use ssi in snf until bg more consistently elevated. copd. cont chronic prednisone and nebs. (2) ARF (acute renal failure) (3) Diabetes (4) CAD (coronary artery disease) 5. CKD 3 6) copd Pt Condition on Discharge: Stable Discharge Instructions DIET: Follow Instructions for: Diabetic Diet Activities you can perform: Regular-No Restrictions Follow up Referrals: PCP Follow-up - 2 Weeks with dinorah guidry New Medications: Levofloxacin (Levaquin) 250 Mg Tablet 250 MG PO DAILY for Infection for 7 Days, #7 TAB Metoprolol Tartrate (Metoprolol Tartrate) 25 Mg Tab 25 MG PO Q12HR for afib for 30 Days, TAB Pantoprazole (Pantoprazole) 40 Mg Tab 40 MG PO DAILY for heartburn for 30 Days, #30 TAB Simethicone (Gas Relief Extra Strength) 125 Mg Chw 125 MG PO Q8HR for gas for 30 Days, EA Tramadol (Ultram) 50 Mg Tab 50 MG PO Q4H PRN for pain, #30 TAB Changed Medications: Ipratropium Neb (Ipratropium Neb) 0.5 Mg/2.5 Ml Amp 0.5 MG NEB QID for Breathing Treatment for 30 Days, #60 NEBULE 0 Refills ( Changed from: Q12HR NEB) Continued Medications: Albuterol Neb (Albuterol Neb) 2.5 Mg/3 Ml Neb 2.5 MG NEB QID NEB for Breathing Treatment, #60 NEBULE 0 Refills Apixaban (Eliquis) 5 Mg Tab 5 MG PO BID for Blood Clot Prevention, #60 TAB 0 Refills Atorvastatin (Atorvastatin) 20 Mg Tab 20 MG PO HS for Cholesterol Management, #30 TAB 0 Refills Cholecalciferol (Vitamin D-3) 1,000 Unit Cap 1000 PO DAILY Diltiazem ER 24 HR (Diltiazem ER 24 HR) 240 Mg Azeem 240 MG PO DAILY, #30 TAB [address] (Duloxetine DR) 60 Mg Capdr 60 MG PO DAILY, #30 CAP 0 Refills Polysaccharide Iron Complex (Poly-Iron 150) 150 Mg Iron Cap 150 MG PO Q12HR for Nutritional Supplement, #60 CAP 0 Refills Prednisone (Prednisone) 5 Mg Tab 5 MG PO DAILY, TAB 0 Refills Temazepam (Temazepam) 30 Mg Cap 30 MG PO HS PRN for INSOMNIA, #30 CAP 0 Refills Tiotropium Inh (Spiriva Handihaler) 18 Mcg Cap 18 MCG INH HS for COPD, #30 CAP 0 Refills 1 capsule = 18 mcg Discontinued Medications: Digoxin (Digox) 0.125 Mg Tab 0.125 MG PO DAILY for Regulate Heart Beat, #30 TAB 0 Refills Furosemide (Furosemide) 20 Mg Tab 40 MG PO DAILY, #60 TAB 0 Refills Hydrocodone-Acetaminophen (Hydrocodone-Acetaminophen) 7.5 Mg-325 Mg Tab 1 TAB PO TID, TAB 0 Refills Insulin Degludec Inj (Tresiba Flextouch Pen Inj) 600 unit/3 ML Pen 36 UNITS SQ DAILY for Blood Sugar Management, #9 ML 0 Refills Losartan (Losartan) 25 Mg Tab 25 MG PO DAILY for Blood Pressure Management, #30 TAB 0 Refills Juan Bello MD Dec 17, 2017 09:12
[2017-12-17 12:00] VITALS: BP 135/63; PULSE 100; PULSE 90; RESP 17; TEMP 98.4; O2SAT 95
== END 2017-12-17 14:29 | DRG 682 ==
LOC: NEPE 04:44 → NEDA 06:30 → N04A 09:11 → HIMW 16:00 → N04A 12-12 16:55
PROVIDERS: ADMIT Hospitalist; ATTEND Hospitalist
DX: N17.0 Acute kidney failure with tubular necrosis (principal); G93.41 Metabolic encephalopathy; E11.22 Type 2 diabetes mellitus with diabetic chronic kidney disease; R06.89 Other abnormalities of breathing; N39.0 Urinary tract infection, site not specified; I48.91 Unspecified atrial fibrillation; I50.9 Heart failure, unspecified; E86.0 Dehydration; I13.0 Hypertensive heart and chronic kidney disease with heart failure and stage 1 through stage 4 chronic kidney disease, or unspecified chronic kidney disease; F32.9 Major depressive disorder, single episode, unspecified; D64.9 Anemia, unspecified; M19.90 Unspecified osteoarthritis, unspecified site; E78.5 Hyperlipidemia, unspecified; N18.3 Chronic kidney disease, stage 3 (moderate); I25.10 Atherosclerotic heart disease of native coronary artery without angina pectoris; F41.9 Anxiety disorder, unspecified; Z79.891 Long term (current) use of opiate analgesic; Z79.51 Long term (current) use of inhaled steroids; Z79.52 Long term (current) use of systemic steroids; Z79.899 Other long term (current) drug therapy; Z88.5 Allergy status to narcotic agent; Z88.8 Allergy status to other drugs, medicaments and biological substances; Z95.1 Presence of aortocoronary bypass graft; Z66 Do not resuscitate
CPT/HCPCS: 36600; 70450; 71045; 73502; 73564; 73700; 74018; 74176; 76700; 76937; 80048; 80053; 80074; 80076; 80162; 80202; 81001; 82140; 82550; 82607; 82746; 82805; 82948; 83605; 83690; 84439; 84443; 84484; 85007; 85025; 85027; 86592; 87040; 87086; 87493; 93005; 94640; 94664; 95819; 96374; C9113; J2405; J2543; J2765; J3370; J7030; J7040; J7050; J7512; Q9963